=== PATIENT | male | born 1980 | race Hispanic/Latino ===

== ENCOUNTER 2018-10-19 14:56 | Emergency (ER) | payer SELFPAY ==
--- NOTE | 2018-10-19 15:11 | Emergency Department Report ---
Blank Doc - Documentation Documentation: 38 y o male presents to ED cc of bilateral flank pain x couple of days and wo rsen this morning when he woke up denies dysuria, trauma, n/v/f UA ACC eval
[2018-10-19 15:40] LABS: Bilirubin,Urine NEG (Negative); Blood,Urine NEG (Negative); Color,Urine Yellow (Yellow); Mucus,Urine FEW /HPF; Protein,Urine <15 mg/dL mg/dL (Negative); Urobilinogen,Urine < 2.0 mg/dL (<2.0); WBC,Urine < 1.0 /HPF (0.0-6.0)
[2018-10-19 16:06] VITALS: BP 132/85
--- NOTE | 2018-10-19 16:06 | Emergency Department Report ---
ED Back Pain/Injury HPI - General Chief Complaint: Back Pain/Injury Stated Complaint: KIDNEY PAIN Time Seen by Provider: 10/19/18 15:08 Source: patient Limitations: No Limitations - History of Present Illness Initial Comments: This is a 38-year-old female who presents to the emergency room with bilateral flank pain for 4-5 days. Past medical history of kidney stones. Patient reports sharp intermittent pain to bilateral flanks that is non- radiating. He is currently taken Tylenol with minimal improvement. Patient states he forced himself to go to work today and pain increased throughout the day. He denies nausea, vomiting, diarrhea, dysuria, penile discharge, testicular enlargement or pain. MD Complaint: back pain Onset/Timin -: days(s) Similar Symptoms Previously: Yes (kidney stones) Place: home Radiation: none Severity: moderate Severity scale (0 -10): 8 Quality: sharp Consistency: intermittent Improves With: none Worsens With: supine Context: unknown Associated Symptoms: denies: numbness, difficulty urinating, incontinence, fever/chills Treatments Prior to Arrival: NSAIDS - Related Data Previous Rx's Medication Instructions Recorded Last Taken Type Ciprofloxacin HCl [Ciprofloxacin 500 mg PO Q12HR 10 Days #20 tab 10/19/18 Unknown Rx TAB] Lactobacillus Acidophilus 1 each PO DAILY #30 capsule 10/19/18 Unknown Rx [Acidophilus Lactobacilli] metroNIDAZOLE [Flagyl TAB] 500 mg PO Q8HR 10 Days #30 tablet 10/19/18 Unknown Rx Allergies Allergy/AdvReac Type Severity Reaction Status Date / Time No Known Allergies Allergy Unverified 10/19/18 15:02 ED Review of Systems ROS: Stated complaint: KIDNEY PAIN Other details as noted in HPI Constitutional: denies: chills, fever Respiratory: denies: cough, shortness of breath, wheezing Cardiovascular: denies: chest pain, palpitations Gastrointestinal: denies: abdominal pain, nausea, diarrhea Genitourinary: denies: urgency, dysuria Musculoskeletal: back pain (bilateral flank pain). denies: joint swelling, arthralgia Skin: denies: rash, lesions Neurological: denies: headache, weakness, paresthesias Psychiatric: denies: anxiety, depression ED Past Medical Hx - Social History Smoking Status: Current Every Day Smoker Substance Use Type: Alcohol, Marijuana - Medications Home Medications: Home Medications Medication Instructions Recorded Confirmed Last Taken Type Ciprofloxacin HCl [Ciprofloxacin 500 mg PO Q12HR 10 Days #20 tab 10/19/18 Unknown Rx TAB] Lactobacillus Acidophilus 1 each PO DAILY #30 capsule 10/19/18 Unknown Rx [Acidophilus Lactobacilli] metroNIDAZOLE [Flagyl TAB] 500 mg PO Q8HR 10 Days #30 tablet 10/19/18 Unknown Rx ED Physical Exam - General Limitations: No Limitations General appearance: alert, in no apparent distress, obese (morbidly) - Respiratory Respiratory exam: Present: normal lung sounds bilaterally. Absent: respiratory distress - Cardiovascular Cardiovascular Exam: Present: regular rate, normal rhythm. Absent: systolic murmur, diastolic murmur, rubs, gallop - GI/Abdominal GI/Abdominal exam: Present: soft, normal bowel sounds, other (obese abdomen). Absent: distended, tenderness, guarding, rebound, rigid - Back Exam Back exam: Present: normal inspection, full ROM. Absent: CVA tenderness (R), C VA tenderness (L) - Neurological Exam Neurological exam: Present: alert, oriented X3 - Psychiatric Psychiatric exam: Present: normal affect, normal mood - Skin Skin exam: Present: warm, dry, intact, normal color. Absent: rash ED Course Vital Signs 10/19/18 10/19/18 15:09 16:05 Temperature 98.2 F 98.8 F Pulse Rate 86 83 Respiratory 18 17 Rate Blood Pressure 141/87 Blood Pressure 132/85 [Left] O2 Sat by Pulse 100 98 Oximetry ED Medical Decision Making - Lab Data Result diagrams: 10/19/18 16:10 10/19/18 16:10 Lab Results 10/19/18 10/19/18 10/19/18 Range/Units 15:19 16:10 16:10 WBC 5.4 (4.5-11.0) K/mm3 RBC 4.79 (3.65-5.03) M/mm3 Hgb 13.3 (11.8-15.2) gm/dl Hct 40.2 (35.5-45.6) % MCV 84 (84-94) fl MCH 28 (28-32) pg MCHC 33 (32-34) % RDW 13.4 (13.2-15.2) % Plt Count 209 (140-440) K/mm3 Carbon Dioxide 26 (22-30) mmol/L BUN 14 (9-20) mg/dL Creatinine 0.8 (0.8-1.5) mg/dL Estimated GFR > 60 ml/min BUN/Creatinine Ratio 18 % Glucose 97 (75-100) mg/dL Calcium 8.6 (8.4-10.2) mg/dL Total Bilirubin 0.30 (0.1-1.2) mg/dL AST 29 (5-40) units/L ALT 26 (7-56) units/L Alkaline Phosphatase 91 (35-129) units/L Total Protein 7.9 (6.3-8.2) g/dL Albumin 4.4 (3.9-5) g/dL Albumin/Globulin Ratio 1.3 % Urine Color Yellow (Yellow) Urine Turbidity Clear (Clear) Urine pH 5.0 (5.0-7.0) Ur Specific Collins 1.025 (1.003-1.030) Urine Protein <15 mg/dl (Negative) mg/dL Urine Glucose (UA) Neg (Negative) mg/dL Urine Ketones Neg (Negative) mg/dL Urine Blood Neg (Negative) Urine Nitrite Neg (Negative) Urine Bilirubin Neg (Negative) Urine Urobilinogen < 2.0 (<2.0) mg/dL Ur Leukocyte Esterase Neg (Negative) Urine WBC (Auto) < 1.0 (0.0-6.0) /HPF Urine RBC (Auto) 1.0 (0.0-6.0) /HPF Urine Mucus Few /HPF - Radiology Data Radiology results: report reviewed PROCEDURE: CT ABDOMEN PELVIS WO CON TECHNIQUE: Computerized axial tomography of the abdomen and pelvis was performed without intravenous contrast. This study is performed without intravascular contrast material and its sensitivity for abdominal and pelvic pathology, including neoplasms, inflammation, abscess, free fluid, thrombosis, arterial dissection and infarction, is reduced compared with a contrast enhanced study. CT DOSE LENGTH PRODUCT: 1832.6 mGycm HISTORY: jessica flank pain, r/o kidney stones COMPARISONS: None . FINDINGS: Visualized lower thorax: No significant abnormality. Liver: Normal size and attenuation. Spleen: Normal size and attenuation. Gallbladder and biliary system: Normal. Pancreas: Normal. Adrenals: Normal. Kidneys: Normal. No evidence for renal calculi or hydronephrosis is seen. GI tract: Diverticuli are scattered throughout the colon. However, there is an inflammatory process and wall thickening in the area of descending colon within an area of diverticular disease. Findings are consistent with acute diverticulitis. No evidence for phlegmon or abscess formation is seen. No localized perforation is noted. Appendix is normal Lymph nodes and mesentery: Normal. Vasculature: Normal.. Bladder: Normal. Reproductive organs: Normal. Peritoneum: No free fluid. Musculoskeletal structures: Bilateral neural foraminal narrowing is present throughout the lumbar spine. Bilateral facet joint degenerative changes from L3 through S1 is noted. Anterior bridging osteophytes in the upper SI joints is noted. Other: None. IMPRESSION: 1. Acute diverticulitis of the descending colon without evidence for localized perforation or phlegmon formation 2. Scattered diverticuli noted elsewhere in the colon 3. Spurring throughout the spine and anterior SI joints - Medical Decision Making Patient was examined by me. Vitals are normal and patient is in no acute distress. Obtained labs and CT of abdomen and pelvis. 1. Acute diverticulitis of the descending colon without evidence for localized perforation or phlegmon formation. 2. Scattered diverticuli noted elsewhere in the colon. 3. Spurring throughout the spine and anterior SI joints. All labs are unremarkable. Some labs were pending and scanned to chart. Patient instructed to stop taking n itrofurantoin. Start cipro, flagyl, and zofran. Plan discussed with patient to discharge home and treat outpatient. He agrees with ER plan. Patient discharged home in stable condition. Follow up with PCP in 2-3 days. Critical care attestation.: If time is entered above; I have spent that time in minutes in the direct care of this critically ill patient, excluding procedure time. ED Disposition Clinical Impression: Nausea, vomiting and diarrhea, Diverticulitis Abdominal pain Qualifiers: Abdominal location: left lower quadrant Qualified Code(s): R10.32 - Left lower quadrant pain Disposition: - TO HOME OR SELFCARE Is pt being admited?: No Does the pt Need Aspirin: No Condition: Stable Instructions: Acute Nausea and Vomiting (ED), Abdominal Pain (ED), Diverticulitis (ED), Diverticulitis Diet (ED) Additional Instructions: Complete full course of antibiotics as prescribed. Follow-up with the primary care doctor from the referral below. Return to the emergency room if bloody stools, increased pain or worsening symptoms. Prescriptions: Lactobacillus Acidophilus [Acidophilus Lactobacilli] 1 each PO DAILY #30 capsule Ciprofloxacin HCl [Ciprofloxacin TAB] 500 mg PO Q12HR 10 Days #20 tab metroNIDAZOLE [Flagyl TAB] 500 mg PO Q8HR 10 Days #30 tablet Referrals: RAFI LEVY MD [Primary Care Provider] - 3-5 Days [facility] [Outside] - 3-5 Days [facility] [Outside] - 3-5 Days [facility] [Provider Group] - 3-5 Days Forms: Work/School Release Form(ED) Time of Disposition: 18:29
[2018-10-19 16:25] LABS: Hematocrit 40.2 % (35.5-45.6); Hemoglobin 13.3 gm/dl (11.8-15.2); Mean Corpuscular HGB Conc 33 % (32-34); Mean Corpuscular Volume 84 fl (84-94); Platelet Count 209 K/mm3 (140-440); Red Blood Count 4.79 M/mm3 (3.65-5.03); Red Cell Distribution Width 13.4 % (13.2-15.2)
[2018-10-19 16:50] LABS: Alanine Aminotransferase 26 units/L (7-56); Albumin 4.4 g/dL (3.9-5); BUN/Creatinine Ratio 18; Blood Urea Nitrogen 14 mg/dL (9-20); Calcium 8.6 mg/dL (8.4-10.2); Hemolysis Index 5
--- NOTE | 2018-10-19 17:32 | Cat Scan Report ---
PROCEDURE: CT ABDOMEN PELVIS WO CON TECHNIQUE: Computerized axial tomography of the abdomen and pelvis was performed without intravenous contrast. This study is performed without intravascular contrast material and its sensitivity for ab dominal and pelvic pathology, including neoplasms, inflammation, abscess, free fluid, thrombosis, art erial dissection and infarction, is reduced compared with a contrast enhanced study. CT DOSE LENGTH PRODUCT: 1832.6 mGycm HISTORY: jessica flank pain, r/o kidney stones COMPARISONS: None . FINDINGS: Visualized lower thorax: No significant abnormality. Liver: Normal size and attenuation. Spleen: Normal size and attenuation. Gallbladder and biliary system: Normal. Pancreas: Normal. Adrenals: Normal. Kidneys: Normal. No evidence for renal calculi or hydronephrosis is seen. GI tract: Diverticuli are scattered throughout the colon. However, there is an inflammatory process and wall thickening in the area of descending colon within an area of diverticular disease. Findings are consistent with acute diverticulitis. No evidence for phlegmon or abscess formation is seen. No l ocalized perforation is noted. Appendix is normal Lymph nodes and mesentery: Normal. Vasculature: Normal.. Bladder: Normal. Reproductive organs: Normal. Peritoneum: No free fluid. Musculoskeletal structures: Bilateral neural foraminal narrowing is present throughout the lumbar spi ne. Bilateral facet joint degenerative changes from L3 through S1 is noted. Anterior bridging osteoph ytes in the upper SI joints is noted. Other: None. IMPRESSION: 1. Acute diverticulitis of the descending colon without evidence for localized perforation or phlegmo n formation 2. Scattered diverticuli noted elsewhere in the colon 3. Spurring throughout the spine and anterior SI joints This document is electronically signed by Susy Somers MD., October 19 2018 05:31:02 PM ET
== END 2018-10-19 18:39 | disposition home or self-care (01) ==
LOC: ED 14:56
DX: K57.92 Diverticulitis of intestine, part unspecified, without perforation or abscess without bleeding (principal); F17.200 Nicotine dependence, unspecified, uncomplicated; F12.10 Cannabis abuse, uncomplicated
CPT/HCPCS: 36415; 74176; 80053; 81001; 85027

== ENCOUNTER 2021-05-28 06:00 | Inpatient (IN) | payer SELFPAY ==
[2021-05-28] MEDS ORDERED: SODIUM CHLORIDE 0.9% 1000 ML 1,000 ML IV ONE ×2 (08:29→13:00)
[2021-05-28] MEDS ORDERED: METOCLOPRAMIDE 10 MG/2 ML INJ IV ONE (08:30)
[2021-05-28] MEDS ORDERED: KETOROLAC 30 MG/1 ML INJ IV ONE (08:30)
--- NOTE | 2021-05-28 08:30 | Emergency Department Report ---
ED Abdominal Pain HPI - General Chief Complaint: Abdominal Pain Stated Complaint: Abd pain Time Seen by Provider: 05/28/21 08:21 Source: patient Mode of arrival: Ambulatory Limitations: No Limitations - History of Present Illness Initial Comments: 41-year-old -Citizen Of [place] male presents to the ER today with complaints of abdominal pain, abdominal bloating and constipation. Patient states that symptoms started 2 days ago. Patient was seen here on May 10, he was diagnosed with acute diverticulitis, and and his CT abdomen pelvis also showed possible small bowel obstruction, but this was felt to be more related to an ileus. Patient was discharged in stable condition with Levaquin and Flagyl. Patient states that his pain did improve for a few days after being discharged, but 2 days ago it flared back up or so in the left lower quadrant, and he states that he noticed that he has been more bloated and constipated and has not had a bowel movement in 2 days. He states that he took a laxative last night x1 without any resolution. He states that he completed a course of Flagyl but still taking the Levaquin. He was also prescribed Zofran but he does not feel like it is helping as he had vomited twice in the past 2 days. He also is on Percocet for pain which he states that he stopped taking 2 days ago. Patient states that he did start passing gas this morning. He denies any UTI symptoms. He denies any fever or chills. Patient denies similar symptoms in the past. MD Complaint: abdominal pain, other (Abdominal bloating) -: Gradual, days(s) (2) Severity scale (0 -10): 5 - Related Data Previous Rx's Medication Instructions Recorded Last Taken Type Ondansetron [Zofran Odt] 4 mg PO Q8HR PRN #20 tab.rapdis 05/10/21 Unknown Rx levoFLOXacin [Levaquin TAB] 500 mg PO QDAY 10 Days #20 tablet 05/10/21 Unknown Rx metroNIDAZOLE [Flagyl TAB] 500 mg PO Q12HR 10 Days #20 tab 05/10/21 Unknown Rx oxyCODONE /ACETAMINOPHEN [Percocet 1 tab PO Q6HR PRN #15 tablet 05/10/21 Unknown Rx 5/325] Allergies Allergy/AdvReac Type Severity Reaction Status Date / Time No Known Allergies Allergy Unverified 06/08/19 15:02 ED Review of Systems ROS: Stated complaint: Abd pain Other details as noted in HPI Comment: All other systems reviewed and negative Constitutional: denies: chills, fever Respiratory: denies: cough, shortness of breath, wheezing Cardiovascular: denies: chest pain, palpitations, dyspnea on exertion, edema, syncope, paroxysmal nocturnal dyspnea ED Past Medical Hx - Past Medical History Previous Medical History?: Yes Hx Kidney Stones: Yes - Surgical History Past Surgical History?: No - Social History Smoking Status: Current Every Day Smoker Substance Use Type: Alcohol, Marijuana - Medications Home Medications: Home Medications Medication Instructions Recorded Confirmed Last Taken Type Ondansetron [Zofran Odt] 4 mg PO Q8HR PRN #20 tab.rapdis 05/10/21 Unknown Rx levoFLOXacin [Levaquin TAB] 500 mg PO QDAY 10 Days #20 tablet 05/10/21 Unknown Rx metroNIDAZOLE [Flagyl TAB] 500 mg PO Q12HR 10 Days #20 tab 05/10/21 Unknown Rx oxyCODONE /ACETAMINOPHEN [Percocet 1 tab PO Q6HR PRN #15 tablet 05/10/21 Unknown Rx 5/325] ED Physical Exam - General Limitations: No Limitations General appearance: alert, in no apparent distress, obese - Head Head exam: Present: atraumatic, normocephalic, normal inspection - Eye Eye exam: Present: normal appearance, PERRL, EOMI Pupils: Present: normal accommodation - Neck Neck exam: Present: normal inspection, full ROM. Absent: meningismus - Respiratory Respiratory exam: Present: normal lung sounds bilaterally. Absent: respiratory distress, wheezes, rales, rhonchi - Cardiovascular Cardiovascular Exam: Present: regular rate, normal rhythm, normal heart sounds - GI/Abdominal GI/Abdominal exam: Present: distended (moderate), tenderness (Mainly LLQ), diminished bowel sounds, hypoactive bowel sounds. Absent: rebound, rigid - Neurological Exam Neurological exam: Present: alert, oriented X3, CN II-XII intact, normal gait - Psychiatric Psychiatric exam: Present: normal affect, normal mood - Skin Skin exam: Present: intact ED Course Vital Signs 05/28/21 05/28/21 05/28/21 06:31 08:57 13:10 Temperature 98.3 F Pulse Rate 90 Respiratory 16 20 Rate Blood Pressure 141/91 [Right] O2 Sat by Pulse 98 97 Oximetry ED Medical Decision Making - Lab Data Result diagrams: 05/28/21 09:03 05/28/21 09:03 - Radiology Data Radiology results: report reviewed Patient: AYANA MCGEE MR#: [id number] 200 : 1980 Acct:[id number] Age/Sex: 41 / M ADM Date: 05/28/21 Loc: ED Attending Dr: Ordering Physician: SAMIA WELLER Date of Service: 05/28/21 Procedure(s): CT abdomen pelvis w con Accession Number(s): [id number] cc: SAMIA WELLER CT abdomen pelvis w con INDICATION / CLINICAL INFORMATION: worsening abd pain/bloating. TECHNIQUE: Axial CT images were obtained through the abdomen and pelvis after 100 cc of Omnipaque [address] scans at this location are performed using CT dose reduction for ALARA by means of automated exposure control. COMPARISON: CT dated 05/10/2021 FINDINGS: LOWER CHEST: No significant abnormality LIVER: No significant abnormality GALLBLADDER/BILIARY TREE: Gallbladder is mildly distended without evidence of cholecystitis. PANCREAS: No significant abnormality SPLEEN: No significant abnormality ADRENALS: No significant abnormality KIDNEYS / URETER: No significant abnormality URINARY BLADDER: Bladder is decompressed, limiting further evaluation. REPRODUCTIVE ORGANS: No significant abnormality STOMACH / BOWEL: Prominent mural thickening and inflammatory stranding involving the distal descending colon with more mild mural thickening of the colon extending proximally to the splenic flexure. Findings appear progressed from 05/10/2021 CT. There is a large amount of stool within the colon with additional small bowel feces. The small bowel is diffusely dilated without significant mural thickening or surrounding inflammatory stranding, likely related to chronic constipation/ileus. LYMPH NODES: No significant adenopathy. VASCULATURE: No significant abnormality. OTHER: No free air, free fluid, or focal fluid collection is identified. SKELETAL SYSTEM: No acute osseous findings. IMPRESSION: 1. Prominent mural thickening and inflammatory stranding involving the distal descending colon, progressed from prior study from 05/10/2021. Findings most likely reflect a focal infectious or inflammatory colitis. 2. Large amount of stool within the proximal colon and small bowel. The small bowel is diffusely dilated without abrupt transition or significant mural thickening/inflammation. These findings most likely represent adynamic ileus related to chronic constipation. 3. Other stable chronic and incidental findings as above. Signer Name: Butch Fortune MD Signed: 05/28/2021 11:58 AM Workstation Name: [id number] Transcribed By: DANAE Dictated By: BUTCH FROTUNE MD Electronically Authenticated By: BUTCH FORTUNE MD Signed Date/Time: 05/28/21 1158 DD/ 1151 TD/TT: - Medical Decision Making 1217: LABS REVIEWED --CBC and CMP including lipase reviewed and does not show any significant abnormalities. Urinalysis negative for UTI. CT abdomen pelvis report reviewed - Prominent mural thickening and inflammatory stranding involving the distal descending colon, progressed from prior study from 05/10/2021. Findings most likely reflect a focal infectious or inflammatory colitis. 2. Large amount of stool within the proximal colon and small bowel. The small bowel is diffusely dilated without abrupt transition or significant mural thickening/inflammation. These findings most likely represent adynamic ileus related to chronic constipatioN Discussed case with Dr Cameron who also reviewed patient results and CT, recommend admission given there is progression of infection. He recommends consulting GI and then the hospitalist. 1249: Discussed case with Dr Edwards, GI specialist control integration engineer -- He reviewed patient's CT scans, and reported that patient small bowel significantly distende d recommend surgical consult and the NG tube bowel rest and IV fluids and no narcotics. He states there is concern that patient more has a colon mass and an infectious process but recommend starting patient on IV Zosyn in the meantime. 1309: Discussed case with Dr Mcgowan, surgeon on-call, she agrees with plan of action for GI specialist recommendation. 1317 : Discussed case with Dr Regan for admission. Patient currently resting comfortably in the recliner. He has not vomited during stay. He is a significant distress. Discussed all results with patient. Discussed plan of admission and reason for admission with patient. Patient expressed understanding and agreed plan. Patient currently stable. Critical care attestation.: If time is entered above; I have spent that time in minutes in the direct care of this critically ill patient, excluding procedure time. ED Disposition Clinical Impression: Acute abdominal pain, Colitis, Nausea and vomiting Disposition: ADMITTED INPATIENT Is pt being admited?: Yes Condition: Stable Referrals: PRIMARY CARE, [Primary Care Provider] - 3-5 Days
[2021-05-28 09:47] LABS: Basophils % (Auto) 0.1 % (0.0-1.8); Eosinophils % (Auto) 0.2 % (0.0-4.3); Hematocrit 40.5 % (35.5-45.6); Hemoglobin 12.8 gm/dl (11.8-15.2); Lymphocytes # (Auto) 1.6 K/mm3 (1.2-5.4); Lymphocytes % (Auto) 29.2 % (13.4-35.0); Mean Corpuscular HGB Conc 32 % (32-34); Mean Corpuscular Volume 85 fl (84-94); Monocytes # (Auto) 0.5 K/mm3 (0.0-0.8); Monocytes % (Auto) 9.4 % (0.0-7.3); Platelet Count 327 K/mm3 (140-440); Red Cell Distribution Width 13.9 % (13.2-15.2)
[2021-05-28 10:10] LABS: Alanine Aminotransferase 8 units/L (7-56); Albumin 4.4 g/dL (3.9-5); Bilirubin,Direct 0.2 mg/dL (0-0.2); Blood Urea Nitrogen 11 mg/dL (9-20); Calcium 9.1 mg/dL (8.4-10.2); Hemolysis Index 6
[2021-05-28 10:11] LABS: BUN/Creatinine Ratio 18
[2021-05-28 11:52] LABS: Bilirubin,Urine SM (Negative); Blood,Urine NEG (Negative); Calcium Oxalate Crystals,Urine 1+; Color,Urine Amber (Yellow); Mucus,Urine 2+ /HPF
[2021-05-28 11:55] LABS: Ictotest,Urine Negative (Negative)
--- NOTE | 2021-05-28 12:03 | Cat Scan Report ---
CT abdomen pelvis w con INDICATION / CLINICAL INFORMATION: worsening abd pain/bloating. TECHNIQUE: Axial CT images were obtained through the abdomen and pelvis after 100 cc of Omnipaque [address] scans at this location are performed using CT dose reduction for ALARA by means of automated exposure control. COMPARISON: CT dated 05/10/2021 FINDINGS: LOWER CHEST: No significant abnormality LIVER: No significant abnormality GALLBLADDER/BILIARY TREE: Gallbladder is mildly distended without evidence of cholecystitis. PANCREAS: No significant abnormality SPLEEN: No significant abnormality ADRENALS: No significant abnormality KIDNEYS / URETER: No significant abnormality URINARY BLADDER: Bladder is decompressed, limiting further evaluation. REPRODUCTIVE ORGANS: No significant abnormality STOMACH / BOWEL: Prominent mural thickening and inflammatory stranding involving the distal descendin g colon with more mild mural thickening of the colon extending proximally to the splenic flexure. Fin dings appear progressed from 05/10/2021 CT. There is a large amount of stool within the colon with ad ditional small bowel feces. The small bowel is diffusely dilated without significant mural thickening or surrounding inflammatory stranding, likely related to chronic constipation/ileus. LYMPH NODES: No significant adenopathy. VASCULATURE: No significant abnormality. OTHER: No free air, free fluid, or focal fluid collection is identified. SKELETAL SYSTEM: No acute osseous findings. IMPRESSION: 1. Prominent mural thickening and inflammatory stranding involving the distal descending colon, progr essed from prior study from 05/10/2021. Findings most likely reflect a focal infectious or inflammato ry colitis. 2. Large amount of stool within the proximal colon and small bowel. The small bowel is diffusely dila kumar without abrupt transition or significant mural thickening/inflammation. These findings most likel y represent adynamic ileus related to chronic constipation. 3. Other stable chronic and incidental findings as above. Signer Name: Max Fortune MD Signed: 05/28/2021 11:58 AM Workstation Name: [id number]
[2021-05-28] MEDS ORDERED: PIPERACILLIN/TAZOBACTAM 3.375 3.375 GM/50 ML BAG IV ONE (13:00)
[2021-05-28] MEDS ORDERED: ALBUTEROL 2.5 MG/3 ML NEBU IH PRN (14:11)
[2021-05-28] MEDS ORDERED: ACETAMINOPHEN 325 MG TAB PO PRN (14:11)
[2021-05-28] MEDS ORDERED: oxyCODONE /ACETAMINOPHEN 5-325MG TAB PO PRN (14:11)
[2021-05-28] MEDS ORDERED: ONDANSETRON 4 MG/2 ML INJ IV PRN (14:11)
[2021-05-28] MEDS ORDERED: HYDROmorphone 1 MG/1 ML INJ IV PRN (14:11)
--- NOTE | 2021-05-28 14:59 | History and Physical Report ---
History of Present Illness Chief complaint: My stomach hurts and I feel bloated History of present illness: 41 YO Male with Obesity, Nicotine Dependence, Nephrolithiasis, LDD presents to ED for evaluation. Patient reports "my stomach hurts and I feel bloated". Patient states that he had experienced abdominal discomfort, constipation, and feeling bloated over the past 2 days with intermittent symptoms over the same timeframe. Patient acknowledges nausea, multiple episodes of vomiting. Patient states that he experienced the aforementioned symptoms 1 week ago and was seen and evaluated in the emergency department and discharged home with oral antibiotic therapy. Patient reports compliance with outpatient therapy with return of the aforementioned symptoms. Patient transported [facility] via private vehicle for further care and evaluation of the aforementioned symptoms. The patient was seen and evaluated in the emergency department. All lab and imaging studies reviewed. Patient underwent CT scan of the abdomen and pelvis which revealed evidence of colitis. Patient placed in observation status and admitted to medical floor due to increased risk of worsening symptoms. Surgical team consulted in ED. GI team consulted in ED. Patient denies fever, chills, chest pain, palpitation, cough, skin rash, recent ill contact, ingestion of food/water from new or different sources, or nondisplaced to COVID-19. No prior admission for review. No medication listed at time of admission for reconciliation. Adva nced care planning conducted in ED. Past History Past Medical History: other (See HPI) Past Surgical History: No surgical history, Other (Reviewed) Social history: single, smoking Family history: no significant family history, other (Reviewed) Medications and Allergies Allergies Allergy/AdvReac Type Severity Reaction Status Date / Time No Known Allergies Allergy Unverified 10/19/18 15:02 Home Medications Medication Instructions Recorded Confirmed Last Taken Type Ondansetron [Zofran Odt] 4 mg PO Q8HR PRN #20 tab.rapdis 05/10/21 Unknown Rx levoFLOXacin [Levaquin TAB] 500 mg PO QDAY 10 Days #20 tablet 05/10/21 Unknown Rx metroNIDAZOLE [Flagyl TAB] 500 mg PO Q12HR 10 Days #20 tab 05/10/21 Unknown Rx oxyCODONE /ACETAMINOPHEN [Percocet 1 tab PO Q6HR PRN #15 tablet 05/10/21 Unknown Rx 5/325] Active Meds: Active Medications Acetaminophen (Acetaminophen 325 Mg Tab) 650 mg PO Q4H PRN PRN Reason: Pain MILD(1-3)/Fever >100.5/SORIA Albuterol (Albuterol 2.5 Mg/3 Ml Nebu) 2.5 mg IH Q4HRT PRN PRN Reason: Shortness Of Breath Hydromorphone HCl (Hydromorphone 1 Mg/1 Ml Inj) 0.5 mg IV Q23H PRN PRN Reason: Pain , Severe (7-10) Sodium Chloride (Nacl 0.9% 1000 Ml) 1,000 mls @ 125 mls/hr IV ONCE ONE Stop: 05/28/21 20:59 Last Admin: 05/28/21 13:19 Dose: 125 mls/hr Sodium Chloride (Nacl 0.9% 1000 Ml) 1,000 mls @ 125 mls/hr IV DIRECT CHARY Ondansetron HCl (Ondansetron 4 Mg/2 Ml Inj) 4 mg IV Q8H PRN PRN Reason: Nausea And Vomiting Oxycodone/Acetaminophen (Oxycodone /Acetaminophen 5-325mg Tab) 1 tab PO Q16H PRN PRN Reason: Pain, Moderate (4-6) Sodium Chloride (Sodium Chloride 0.9% 10 Ml Flush Syringe) 10 ml IV BID CHARY Sodium Chloride (Sodium Chloride 0.9% 10 Ml Flush Syringe) 10 ml IV PRN PRN PRN Reason: LINE FLUSH Review of Systems Constitutional: no weight loss, no weight gain, no fever, no chills Ears, nose, mouth and throat: no ear pain, no nose pain, no nasal congestion, no sinus pressure Cardiovascular: no orthopnea, no palpitations, no syncope, no lightheadedness Respiratory: no cough, no cough with sputum, no hemoptysis, no shortness of breath Gastrointestinal: abdominal pain, constipation, no BRBPR, no melena, no hematochezia, no early satiety Genitourinary Male: no hematuria, no flank pain, no discharge, no urinary frequency, no urinary hesitancy Rectal: no pain, no incontinence, no bleeding Musculoskeletal: no neck stiffness, no neck pain, no low back pain Integumentary: no rash, no redness, no wounds Neurological: no head injury, no paralysis, no numbness, no seizures Psychiatric: no anxiety, no change in sleep habits, no insomnia, no hypersomnia, no suicidal ideation, no hallucinations Endocrine: no heat intolerance, no excessive thirst, no polyuria, no nocturia Hematologic/Lymphatic: no easy bleeding Allergic/Immunologic: no urticaria, no allergic rhinitis, no wheezing Exam - Constitutional Vitals: Temp Pulse Resp BP Pulse Ox 98.5 F 69 18 135/81 99 05/28/21 13:34 05/28/21 13:34 05/28/21 13:34 05/28/21 13:34 05/28/21 13:34 General appearance: Present: mild distress, obese - EENT Eyes: Present: PERRL ENT: hearing intact, clear oral mucosa - Neck Neck: Present: supple, normal ROM - Respiratory Respiratory effort: normal Respiratory: bilateral: CTA - Cardiovascular Heart Sounds: Present: S1 & S2. Absent: rub, click - Extremities Extremities: pulses symmetrical, No edema Peripheral Pulses: within normal limits - Abdominal General gastrointestinal: Present: soft, non-tender, non-distended, normal bowel sounds Male genitourinary: Present: normal - Integumentary Integumentary: Present: clear, warm, dry - Musculoskeletal Musculoskeletal: gait normal, strength equal bilaterally - Psychiatric Psychiatric: appropriate mood/affect, intact judgment & insight - Neurologic Neurologic: CNII-XII intact, moves all extremities Results - Labs CBC & Chem 7: 05/28/21 09:03 05/28/21 09:03 Labs: Abnormal lab results 05/28/21 05/28/21 05/28/21 Range/Units 09:03 09:03 11:04 MCH 27 L (28-32) pg [place] % (Auto) 9.4 H (0.0-7.3) % Sodium 134 L (137-145) mmol/L Chloride 95.3 L (98-107) mmol/L Creatinine 0.6 L (0.8-1.3) mg/dL Glucose 106 H (75-100) mg/dL Lipase 73 H (13-60) units/L Ur Specific [place] 1.034 H (1.003-1.030) Assessment and Plan - Patient Problems (1) Colitis Current Visit: Yes Status: Acute Plan to address problem: Empiric IV antibiotic therapy, supportive care, GI team consulted, continue medical management. (2) Acute abdominal pain Current Visit: Yes Status: Acute Plan to address problem: CT scan abdomen pelvis, serial abdominal exam, surgery team consulted, GI team consulted in ED. Further care and evaluation as per the aforementioned teams. (3) Obesity hypoventilation syndrome Current Visit: Yes Status: Acute (4) DVT prophylaxis Current Visit: Yes Status: Acute Plan to address problem: SCDs bilateral lower extremities while in bed, patient is ambulatory (5) Advance care planning Current Visit: Yes Status: Acute Plan to address problem: Disease education conducted, care plan discussed, suspected diagnoses discussed, patient is full code. Patient acknowledges understanding and agreement with care plan, +30 minutes. (6) Nicotine dependence Current Visit: Yes Status: Acute Qualifiers: Nicotine product type: cigarettes Substance use status: in withdrawal Qualified Code(s): F17.213 - Nicotine dependence, cigarettes, with withdrawal Plan to address problem: Smoke cessation counseling, supportive care, behavior change counseling, +15 minutes.
--- NOTE | 2021-05-28 16:24 | Consultation ---
History of Present Illness Consult date: 05/28/21 Reason for consult: abdominal pain Chief complaint: abdominal bloating, constipation - History of present illness History of present illness: 41 yo M with no PMHx who presented to ER with c/o abdominal bloating and constipation for 1 1/2 day. This time he also had n/v - clear emesis (NB/NB). His last BM was 1 1/2 day ago and normal. He usually has BM twice a day. His BMs have not changed in character and he denies hematochezia and melena. He is passing flatus regularly. He is afebrile. He feels well now after medications given in ER. Patient states the first episode was 3 weeks ago at which time he also came to ER. He was diagnosed with descending colon diverticulitis and started on levaquin and flagyl. He states he felt better after starting antibiotics for a few days. He has never had a colonscopy and no family hx of colon ca. Past History Past Medical History: No medical history Past Surgical History: No surgical history Social history: no significant social history Family history: diabetes Medications and Allergies Allergies Allergy/AdvReac Type Severity Reaction Status Date / Time No Known Allergies Allergy Unverified 10/19/18 15:02 Home Medications Medication Instructions Recorded Confirmed Last Taken Type Ondansetron [Zofran Odt] 4 mg PO Q8HR PRN #20 tab.rapdis 05/10/21 Unknown Rx levoFLOXacin [Levaquin TAB] 500 mg PO QDAY 10 Days #20 tablet 05/10/21 Unknown Rx metroNIDAZOLE [Flagyl TAB] 500 mg PO Q12HR 10 Days #20 tab 05/10/21 Unknown Rx oxyCODONE /ACETAMINOPHEN [Percocet 1 tab PO Q6HR PRN #15 tablet 05/10/21 Unknown Rx 5/325] Active Meds: Active Medications Acetaminophen (Acetaminophen 325 Mg Tab) 650 mg PO Q4H PRN PRN Reason: Pain MILD(1-3)/Fever >100.5/SORIA Albuterol (Albuterol 2.5 Mg/3 Ml Nebu) 2.5 mg IH Q4HRT PRN PRN Reason: Shortness Of Breath Hydromorphone HCl (Hydromorphone 1 Mg/1 Ml Inj) 0.5 mg IV Q23H PRN PRN Reason: Pain , Severe (7-10) Sodium Chloride (Nacl 0.9% 1000 Ml) 1,000 mls @ 125 mls/hr IV ONCE ONE Stop: 05/28/21 20:59 Last Admin: 05/28/21 13:19 Dose: 125 mls/hr Sodium Chloride (Nacl 0.9% 1000 Ml) 1,000 mls @ 125 mls/hr IV DIRECT CHARY Ondansetron HCl (Ondansetron 4 Mg/2 Ml Inj) 4 mg IV Q8H PRN PRN Reason: Nausea And Vomiting Oxycodone/Acetaminophen (Oxycodone /Acetaminophen 5-325mg Tab) 1 tab PO Q16H PRN PRN Reason: Pain, Moderate (4-6) Sodium Chloride (Sodium Chloride 0.9% 10 Ml Flush Syringe) 10 ml IV BID CHARY Sodium Chloride (Sodium Chloride 0.9% 10 Ml Flush Syringe) 10 ml IV PRN PRN PRN Reason: LINE FLUSH Review of Systems All systems: negative (10 pt ROS performed and negative except for that listed in HPI) Exam Vital Signs Temp Pulse Resp BP Pulse Ox 98.3 F 90 16 141/91 98 05/28/21 06:31 05/28/21 06:31 05/28/21 06:31 05/28/21 06:31 05/28/21 06:31 Narrative exam: Gen: AAOx3. NAD ENT: no icterus or conjunctival pallor CV: S1, S2+ resp: even and unlabored Abd: soft, distended, NT. no r/r/g Ext: no c/c/e Results - Labs 05/28/21 09:03 05/28/21 09:03 Abnormal lab results 05/28/21 05/28/21 05/28/21 Range/Units 09:03 09:03 11:04 MCH 27 L (28-32) pg [place] % (Auto) 9.4 H (0.0-7.3) % Sodium 134 L (137-145) mmol/L Chloride 95.3 L (98-107) mmol/L Creatinine 0.6 L (0.8-1.3) mg/dL Glucose 106 H (75-100) mg/dL Lipase 73 H (13-60) units/L Ur Specific [place] 1.034 H (1.003-1.030) Diabetes panel 05/28/21 Range/Units 09:03 Sodium 134 L (137-145) mmol/L Potassium 3.8 (3.6-5.0) mmol/L Chloride 95.3 L (98-107) mmol/L Carbon Dioxide 26 (22-30) mmol/L BUN 11 (9-20) mg/dL Creatinine 0.6 L (0.8-1.3) mg/dL Glucose 106 H (75-100) mg/dL Calcium 9.1 (8.4-10.2) mg/dL AST 10 (5-40) units/L ALT 8 (7-56) units/L Alkaline Phosphatase 52 (35-129) units/L Total Protein 6.9 (6.3-8.2) g/dL Albumin 4.4 (3.9-5) g/dL Calcium panel 05/28/21 Range/Units 09:03 Calcium 9.1 (8.4-10.2) mg/dL Albumin 4.4 (3.9-5) g/dL Pituitary panel 05/28/21 Range/Units 09:03 Sodium 134 L (137-145) mmol/L Potassium 3.8 (3.6-5.0) mmol/L Chloride 95.3 L (98-107) mmol/L Carbon Dioxide 26 (22-30) mmol/L BUN 11 (9-20) mg/dL Creatinine 0.6 L (0.8-1.3) mg/dL Glucose 106 H (75-100) mg/dL Calcium 9.1 (8.4-10.2) mg/dL Adrenal panel 05/28/21 Range/Units 09:03 Sodium 134 L (137-145) mmol/L Potassium 3.8 (3.6-5.0) mmol/L Chloride 95.3 L (98-107) mmol/L Carbon Dioxide 26 (22-30) mmol/L BUN 11 (9-20) mg/dL Creatinine 0.6 L (0.8-1.3) mg/dL Glucose 106 H (75-100) mg/dL Calcium 9.1 (8.4-10.2) mg/dL Total Bilirubin 0.60 (0.1-1.2) mg/dL AST 10 (5-40) units/L ALT 8 (7-56) units/L Alkaline Phosphatase 52 (35-129) units/L Total Protein 6.9 (6.3-8.2) g/dL Albumin 4.4 (3.9-5) g/dL - Imaging CT scan - abdomen: report reviewed, image reviewed CT scan - pelvis: report reviewed, image reviewed Assessment and Plan 41 yo M with partial colonic obstruction 2/2 descending colon mass vs infection/inflammatory process Ct A/P reviewed from 05/28/21 and 05/09/21 - mural thickening of portion of descending colon with mild inflammatory stranding, no perforation. Distal colon with some air/stool but decompressed. Dilatation of proximal colon and diffuse small bowel distension. No free fluid or free air. Plan: 1. NPO 2. IVF 3. place NGT to [facility] 4. IV abx - zosyn 5. prn pain and nausea control 6. DVT ppx 7. GI consulted. May need flex sig/cscope 8. Abd xray in am Pt currently stable. Will follow. Thank you, please call with questions.
[2021-05-29] MEDS ORDERED: PANTOPRAZOLE 40 MG INJ IV ONE (02:51)
[2021-05-29] MEDS: SIMETHICONE 80 MG CHEW TAB PO PRN (02:57)
--- NOTE | 2021-05-29 04:22 | XRay Report ---
ABDOMEN 3 VIEW(S) INDICATION / CLINICAL INFORMATION: abd distension. COMPARISON: CT dated 05/28/21 FINDINGS: TUBES / LINES: None. BOWEL GAS PATTERN: Moderately dilated small bowel with numerous air-fluid levels as seen on prior CT. FREE AIR / EXTRALUMINAL GAS: None seen. ADDITIONAL FINDINGS: No significant additional findings. CHEST: Visualized chest shows no significant abnormality. IMPRESSION: 1. Moderately dilated small bowel likely related to inflammatory process in the descending colon. Signer Name: Nima He MD Signed: 05/29/2021 4:18 AM Workstation Name: [id number]
[2021-05-29 04:37] LABS: Basophils % (Auto) 0.5 % (0.0-1.8); Eosinophils % (Auto) 0.1 % (0.0-4.3); Hematocrit 40.9 % (35.5-45.6); Lymphocytes # (Auto) 1.2 K/mm3 (1.2-5.4); Lymphocytes % (Auto) 19.7 % (13.4-35.0); Mean Corpuscular HGB Conc 32 % (32-34); Mean Corpuscular Volume 84 fl (84-94); Monocytes # (Auto) 0.4 K/mm3 (0.0-0.8); Monocytes % (Auto) 6.9 % (0.0-7.3); Platelet Count 337 K/mm3 (140-440); Red Blood Count 4.87 M/mm3 (3.65-5.03); Red Cell Distribution Width 13.8 % (13.2-15.2)
[2021-05-29 04:59] LABS: Alanine Aminotransferase 7 units/L (7-56); Albumin 4.2 g/dL (3.9-5); Blood Urea Nitrogen 12 mg/dL (9-20); Calcium 8.9 mg/dL (8.4-10.2); Hemolysis Index 4
[2021-05-29 05:03] LABS: BUN/Creatinine Ratio 17
[2021-05-29] MEDS: KETOROLAC 30 MG/1 ML INJ IV SCH (09:28)
[2021-05-29] MEDS: PANTOPRAZOLE 40 MG INJ IV SCH (10:00)
--- NOTE | 2021-05-29 10:39 | Progress Note ---
Assessment and Plan Assessment and plan: #Colitis #Acute abdominal pain CT abdomen/pelvis with contrast revealing likely infectious versus inflammatory colitis Previous admission for acute diverticulitis of descending colon. Patient at that point was discharged with Flagyl and Levaquin with mild improvement upon d ischarge. General surgery consulted; appreciate recs Patient will be NPO. NG tube placed with low intermittent wall suction. Continue Zosyn per general surgery recommendations. Continue as needed analgesics and nausea control. Gastroenterology consulted; pending recs. Continue to monitor #Obesity #Weight loss counseling #Exercise counseling - BMI 35.2 - Counseled patient on the importance of weight loss, incorporating exercise, and dietary changes (lean meats, fresh fruits and vegetables, and water intake). Patient expresses understanding. - Time: +15 min #Tobacco dependence #Tobacco/Smoking cessation counseling - Counseled patient about the importance of smoking cessation and the possible sequelae as a result of continued tobacco consumption. The patient expresses understanding. -Time: +15 mins #Advanced care planning -Disease education conducted, care plan discussed, diagnoses discussed, prog nosis discussed, and patient acknowledges understanding with care plan -Time: +30 min Disposition Plan: Continue medical management Total Time Spent with Patient (Minutes): 45 minutes History Interval history: No acute events overnight. Hospitalist Physical - Constitutional Vitals: Temp Pulse Resp BP Pulse Ox 98.9 F 70 15 149/108 97 05/29/21 09:24 05/29/21 09:15 05/29/21 09:15 05/29/21 09:15 05/29/21 09:15 General appearance: Present: no acute distress, well-nourished, obese - EENT Eyes: Present: PERRL, EOM intact ENT: hearing intact, clear oral mucosa, dentition normal - Neck Neck: Present: supple, normal ROM - Respiratory Respiratory effort: normal Respiratory: bilateral: diminished - Cardiovascular Rhythm: regular Heart Sounds: Present: S1 & S2 - Extremities Extremities: no ischemia, pulses intact, pulses symmetrical, No edema, normal temperature, normal color, Full ROM Peripheral Pulses: within normal limits - Abdominal General gastrointestinal: soft, tender, normal bowel sounds Localized gastrointestinal: tender: epigastric periumbilical, midline - Integumentary Integumentary: Present: clear, warm, dry - Psychiatric Psychiatric: appropriate mood/affect, intact judgment & insight, memory intact, cooperative - Neurologic Neurologic: CNII-XII intact, moves all extremities - Allied Health Allied health notes reviewed: nursing Results - Labs CBC & Chem 7: 05/29/21 04:17 05/29/21 04:17 Labs: Laboratory Last Values WBC 6.3 K/mm3 (4.5-11.0) 05/29/21 04:17 RBC 4.87 M/mm3 (3.65-5.03) 05/29/21 04:17 Hgb 13.0 gm/dl (11.8-15.2) 05/29/21 04:17 Hct 40.9 % (35.5-45.6) 05/29/21 04:17 MCV 84 fl (84-94) 05/29/21 04:17 MCH 27 pg (28-32) L 05/29/21 04:17 MCHC 32 % (32-34) 05/29/21 04:17 RDW 13.8 % (13.2-15.2) 05/29/21 04:17 Plt Count 337 K/mm3 (140-440) 05/29/21 04:17 Lymph % (Auto) 19.7 % (13.4-35.0) 05/29/21 04:17 Coffee % (Auto) 6.9 % (0.0-7.3) 05/29/21 04:17 Eos % (Auto) 0.1 % (0.0-4.3) 05/29/21 04:17 Baso % (Auto) 0.5 % (0.0-1.8) 05/29/21 04:17 Lymph # (Auto) 1.2 K/mm3 (1.2-5.4) 05/29/21 04:17 Coffee # (Auto) 0.4 K/mm3 (0.0-0.8) 05/29/21 04:17 Eos # (Auto) 0.0 K/mm3 (0.0-0.4) 05/29/21 04:17 Baso # (Auto) 0.0 K/mm3 (0.0-0.1) 05/29/21 04:17 Seg Neutrophils % 72.8 % (40.0-70.0) H 05/29/21 04:17 Seg Neutrophils # 4.6 K/mm3 (1.8-7.7) 05/29/21 04:17 Sodium 139 mmol/L (137-145) 05/29/21 04:17 Potassium 3.8 mmol/L (3.6-5.0) 05/29/21 04:17 Chloride 100.0 mmol/L (98-107) 05/29/21 04:17 Carbon Dioxide 25 mmol/L (22-30) 05/29/21 04:17 Anion Gap 18 mmol/L 05/29/21 04:17 BUN 12 mg/dL (9-20) 05/29/21 04:17 Creatinine 0.7 mg/dL (0.8-1.3) L 05/29/21 04:17 Estimated GFR > 60 ml/min 05/29/21 04:17 BUN/Creatinine Ratio 17 % 05/29/21 04:17 Glucose 117 mg/dL (75-100) H 05/29/21 04:17 Calcium 8.9 mg/dL (8.4-10.2) 05/29/21 04:17 Total Bilirubin 0.80 mg/dL (0.1-1.2) 05/29/21 04:17 Direct Bilirubin 0.2 mg/dL (0-0.2) 05/28/21 09:03 Indirect Bilirubin 0.4 mg/dL 05/28/21 09:03 AST 10 units/L (5-40) 05/29/21 04:17 ALT 7 units/L (7-56) 05/29/21 04:17 Alkaline Phosphatase 48 units/L (35-129) 05/29/21 04:17 Total Protein 7.2 g/dL (6.3-8.2) 05/29/21 04:17 Albumin 4.2 g/dL (3.9-5) 05/29/21 04:17 Albumin/Globulin Ratio 1.4 % 05/29/21 04:17 Lipase 73 units/L (13-60) H 05/28/21 09:03 Urine Color Jessie (Yellow) 05/28/21 11:04 Urine Turbidity Clear (Clear) 05/28/21 11:04 Urine pH 5.0 (5.0-7.0) 05/28/21 11:04 Ur Specific [place] 1.034 (1.003-1.030) H 05/28/21 11:04 Urine Protein 30 mg/dl mg/dL (Negative) 05/28/21 11:04 Urine Glucose (UA) Neg mg/dL (Negative) 05/28/21 11:04 Urine Ketones Tr mg/dL (Negative) 05/28/21 11:04 Urine Blood Neg (Negative) 05/28/21 11:04 Urine Nitrite Neg (Negative) 05/28/21 11:04 Urine Bilirubin Sm (Negative) 05/28/21 11:04 Urine Ictotest Negative (Negative) 05/28/21 11:04 Urine Urobilinogen 4.0 mg/dL (<2.0) 05/28/21 11:04 Ur Leukocyte Esterase Neg (Negative) 05/28/21 11:04 Urine WBC (Auto) 3.0 /HPF (0.0-6.0) 05/28/21 11:04 Urine RBC (Auto) 12.0 /HPF (0.0-6.0) 05/28/21 11:04 U Epithel Cells (Auto) < 1.0 /HPF (0-13.0) 05/28/21 11:04 Calcium Oxalate Crystal 1+ 05/28/21 11:04 Urine Mucus 2+ /HPF 05/28/21 11:04 Active Medications - Current Medications Current Medications: Generic Name Dose Route Start Last Admin Trade Name Freq PRN Reason Stop Dose Admin Acetaminophen 650 mg 05/28/21 14:11 Acetaminophen 325 Mg Tab PO Q4H PRN Pain MILD(1-3)/Fever >100.5/SORIA Albuterol 2.5 mg 05/28/21 14:11 Albuterol 2.5 Mg/3 Ml Nebu IH Q4HRT PRN Shortness Of Breath Hydromorphone HCl 0.5 mg 05/29/21 09:00 Hydromorphone 1 Mg/1 Ml Inj IV Q3H PRN Pain , Severe (7-10) Sodium Chloride 1,000 mls @ 125 mls/hr 05/28/21 14:15 Nacl 0.9% 1000 Ml IV DIRECT CHARY Piperacillin Sod/Tazobactam Sod 4.5 gm in 100 mls @ 200 mls/hr 05/29/21 11:00 Zosyn/Ns 4.5gm/100ml IV Q8H CHARY Protocol Ketorolac Tromethamine 15 mg 05/29/21 09:00 05/29/21 09:28 Ketorolac 30 Mg/1 Ml Inj IV 06/03/21 08:59 15 mg Q12H CHARY Administration Ondansetron HCl 4 mg 05/28/21 14:11 Ondansetron 4 Mg/2 Ml Inj IV Q8H PRN Nausea And Vomiting Oxycodone/Acetaminophen 1 tab 05/28/21 14:11 05/29/21 02:40 Oxycodone /Acetaminophen 5-325mg Tab PO 1 tab Q16H PRN Administration Pain, Moderate (4-6) Pantoprazole Sodium 40 mg 05/29/21 10:00 Pantoprazole 40 Mg Inj IV QDAY CHARY Simethicone 80 mg 05/29/21 02:44 05/29/21 02:57 Simethicone 80 Mg Chew Tab PO 80 mg Q6H PRN Administration Gas pain Sodium Chloride 10 ml 05/28/21 22:00 05/28/21 22:17 Sodium Chloride 0.9% 10 Ml Flush Syringe IV 10 ml BID CHARY Administration Sodium Chloride 10 ml 05/28/21 14:11 Sodium Chloride 0.9% 10 Ml Flush Syringe IV PRN PRN LINE FLUSH
[2021-05-29] MEDS: PIPERACIL/TAZOBACTA 4.5/NS 100 4.5 GM/100 ML VIAL IV SCH (11:23)
--- NOTE | 2021-05-29 13:09 | Gastroenterology Consultation ---
History of Present Illness - Reason for Consult Consult date: 05/29/[address] [facility] CT Requesting physician: HONORIO BATRES - History of Present Illness The patient is a 41 yo male with no past GI history. He was dx with diverticulitis 2 weeks ago, and felt better on abx. However, in the 3-4 days prior to admission he had recurrent N/V/LLQ abdominal pain. He was unable to pass stool, and felt very constipated. He had a CT in the ER that shows colonic obstruction in the sigmoid, with severe upstream dilation to the small bowel. He had an NG placed, and copious secretions removed. He now feels better and is passing gas, but not stool. He has had no fevers or chills. No prior GI surgery, colonoscopy or CT scans. He has no family hx of diverticulitis or col on CA. Past History Past Medical History: other (Obesity) Past Surgical History: No surgical history Social history: single, smoking Family history: no significant family history Medications and Allergies Allergies Allergy/AdvReac Type Severity Reaction Status Date / Time No Known Allergies Allergy Unverified 10/19/18 15:02 Home Medications Medication Instructions Recorded Confirmed Last Taken Type Ondansetron [Zofran Odt] 4 mg PO Q8HR PRN #20 tab.rapdis 05/10/21 Unknown Rx levoFLOXacin [Levaquin TAB] 500 mg PO QDAY 10 Days #20 tablet 05/10/21 Unknown Rx metroNIDAZOLE [Flagyl TAB] 500 mg PO Q12HR 10 Days #20 tab 05/10/21 Unknown Rx oxyCODONE /ACETAMINOPHEN [Percocet 1 tab PO Q6HR PRN #15 tablet 05/10/21 Unknown Rx 5/325] Active Meds: Active Medications Acetaminophen (Acetaminophen 325 Mg Tab) 650 mg PO Q4H PRN PRN Reason: Pain MILD(1-3)/Fever >100.5/SORIA Albuterol (Albuterol 2.5 Mg/3 Ml Nebu) 2.5 mg IH Q4HRT PRN PRN Reason: Shortness Of Breath Hydromorphone HCl (Hydromorphone 1 Mg/1 Ml Inj) 0.5 mg IV Q3H PRN PRN Reason: Pain , Severe (7-10) Sodium Chloride (Nacl 0.9% 1000 Ml) 1,000 mls @ 125 mls/hr IV DIRECT CHARY Piperacillin Sod/Tazobactam Sod (Zosyn/Ns 4.5gm/100ml) 4.5 gm in 100 mls @ 200 mls/hr IV Q8H [facility]; Protocol Last Admin: 05/29/21 11:23 Dose: 200 mls/hr Ketorolac Tromethamine (Ketorolac 30 Mg/1 Ml Inj) 15 mg IV Q12H [facility] Stop: 06/03/21 08:59 Last Admin: 05/29/21 09:28 Dose: 15 mg Ondansetron HCl (Ondansetron 4 Mg/2 Ml Inj) 4 mg IV Q8H PRN PRN Reason: Nausea And Vomiting Oxycodone/Acetaminophen (Oxycodone /Acetaminophen 5-325mg Tab) 1 tab PO Q16H PRN PRN Reason: Pain, Moderate (4-6) Last Admin: 05/29/21 02:40 Dose: 1 tab Pantoprazole Sodium (Pantoprazole 40 Mg Inj) 40 mg IV QDAY [facility] Last Admin: 05/29/21 10:00 Dose: 40 mg Simethicone (Simethicone 80 Mg Chew Tab) 80 mg PO Q6H PRN PRN Reason: Gas pain Last Admin: 05/29/21 02:57 Dose: 80 mg Sodium Chloride (Sodium Chloride 0.9% 10 Ml Flush Syringe) 10 ml IV BID CHARY Last Admin: 05/29/21 10:00 Dose: 10 ml Sodium Chloride (Sodium Chloride 0.9% 10 Ml Flush Syringe) 10 ml IV PRN PRN PRN Reason: LINE FLUSH I HAVE REVIEWED/RECONCILED MEDICATIONS Review of Systems - Review of Systems All systems: negative (as noted in the HPI) Exam - Constitutional Vital Signs: Temp Pulse Resp BP Pulse Ox 98.9 F 70 19 149/108 97 05/29/21 09:24 05/29/21 09:15 05/29/21 09:58 05/29/21 09:15 05/29/21 09:15 General appearance: no acute distress - EENT Eyes: PERRL, EOM intact ENT: hearing intact, clear oral mucosa, dentition normal, other (NG tube with greenish fluid) - Neck Neck: supple - Respiratory Respiratory effort: normal Respiratory: bilateral: CTA - Cardiovascular Rhythm: regular Heart Sounds: Present: S1 & S2 Extremities: no ischemia, No edema - Gastrointestinal General gastrointestinal: Present: soft, non-tender, distended, normal bowel sounds - Integumentary Integumentary: Present: clear, warm, dry - Neurologic Neurological: alert and oriented x3 - Psychiatric Psychiatric: appropriate mood/affect - Labs CBC & Chem 7: 05/29/21 04:17 05/29/21 04:17 Lab Results: Laboratory Results - last 24 hr 05/29/21 05/29/21 05/29/21 04:17 04:17 Unknown WBC 6.3 RBC 4.87 Hgb 13.0 Hct 40.9 MCV 84 MCH 27 L MCHC 32 RDW 13.8 Plt Count 337 Lymph % (Auto) 19.7 [place] % (Auto) 6.9 Eos % (Auto) 0.1 Baso % (Auto) 0.5 Lymph # (Auto) 1.2 [place] # (Auto) 0.4 Eos # (Auto) 0.0 Baso # (Auto) 0.0 Seg Neutrophils % 72.8 H Seg Neutrophils # 4.6 Sodium 139 Potassium 3.8 Chloride 100.0 Carbon Dioxide 25 Anion Gap 18 BUN 12 Creatinine 0.7 L Estimated GFR > 60 BUN/Creatinine Ratio 17 Glucose 117 H Calcium 8.9 Total Bilirubin 0.80 AST 10 ALT 7 Alkaline Phosphatase 48 Total Protein 7.2 Albumin 4.2 Albumin/Globulin Ratio 1.4 Coronavirus (PCR) Negative Assessment and Plan - Patient Problems (1) Colonic obstruction Current Visit: Yes Status: Acute Plan to address problem: - Unclear based on CT whether inflammatory or malignant obstruction, but initial CT a few weeks ago looked more like diverticulitis. - Agree with Surgery re:bowel rest, abx, IV fluids, NG suction - KUB today no significant improvement, but patient feels like he is about to soria ve a large BM; will re-order for the AM. - If obstruction (partially) resolves, will try and prep for colonoscopy to assess for mass lesion versus inflammation.
--- NOTE | 2021-05-29 13:12 | Progress Note ---
Assessment and Plan 41 yo M with partial colonic obstruction 2/2 descending colon mass vs infection/inflammatory process Ct A/P reviewed from 05/28/21 and 05/09/21 - mural thickening of portion of descending colon with mild inflammatory stranding, no perforation. Distal colon with some air/stool but decompressed. Dilatation of proximal colon and diffuse small bowel distension. No free fluid or free air. Obs series - mod dilatation of small bowel Plan: 1. NPO 2. IVF 3. NGT to LIWS 4. IV abx - zosyn 5. prn pain and nausea control 6. DVT ppx 7. GI consulted May need flex sig/cscope 8. Daily abd xray Pt remains stable. Will follow. Thank you, please call with questions. Subjective Date of service: 05/29/21 Narrative: Pt seen and examined. States he is feeling much better. He is having flatus. No n/v. NGT was placed this am. He feels like he needs to have a BM. No f/c. No abd pain. Objective Vital Signs - 12hr 05/29/21 05/29/21 05/29/21 01:15 01:31 01:45 Temperature Pulse Rate 62 70 63 Respiratory 19 15 13 Rate Blood Pressure 135/86 135/86 135/86 Blood Pressure [Right] O2 Sat by Pulse 95 96 96 Oximetry 05/29/21 05/29/21 05/29/21 01:57 02:01 02:15 Temperature Pulse Rate 61 75 68 Respiratory 17 15 22 Rate Blood Pressure 142/100 142/100 Blood Pressure 135/86 [Right] O2 Sat by Pulse 95 96 96 Oximetry 05/29/21 05/29/21 05/29/21 02:31 02:45 03:01 Temperature Pulse Rate 77 69 70 Respiratory 16 25 H 21 Rate Blood Pressure 142/100 142/100 137/89 Blood Pressure [Right] O2 Sat by Pulse 95 93 95 Oximetry 05/29/21 05/29/21 05/29/21 03:15 03:31 03:58 Temperature Pulse Rate 62 60 Respiratory 20 21 Rate Blood Pressure 137/89 137/89 137/89 Blood Pressure [Right] O2 Sat by Pulse 97 94 Oximetry 05/29/21 05/29/21 05/29/21 04:14 04:15 04:31 Temperature Pulse Rate 83 66 Respiratory 17 23 Rate Blood Pressure 137/89 137/89 137/89 Blood Pressure [Right] O2 Sat by Pulse 97 96 95 Oximetry 05/29/21 05/29/21 05/29/21 04:45 05:01 05:15 Temperature Pulse Rate 61 66 66 Respiratory 20 19 19 Rate Blood Pressure 137/89 125/63 125/63 Blood Pressure [Right] O2 Sat by Pulse 96 95 95 Oximetry 05/29/21 05/29/21 05/29/21 05:31 05:45 06:01 Temperature Pulse Rate 60 69 63 Respiratory 19 16 18 Rate Blood Pressure 125/63 125/63 135/79 Blood Pressure [Right] O2 Sat by Pulse 95 98 94 Oximetry 05/29/21 05/29/21 05/29/21 06:15 06:31 06:45 Temperature Pulse Rate 64 60 79 Respiratory 20 19 21 Rate Blood Pressure 135/79 135/79 135/79 Blood Pressure [Right] O2 Sat by Pulse 96 94 95 Oximetry 05/29/21 05/29/21 05/29/21 07:01 07:15 07:31 Temperature Pulse Rate 67 79 67 Respiratory 23 19 23 Rate Blood Pressure 122/66 122/66 122/66 Blood Pressure [Right] O2 Sat by Pulse 94 97 94 Oximetry 05/29/21 05/29/21 05/29/21 07:45 08:01 08:15 Temperature Pulse Rate 80 61 67 Respiratory 20 20 22 Rate Blood Pressure 122/66 155/98 155/98 Blood Pressure [Right] O2 Sat by Pulse 96 96 96 Oximetry 05/29/21 05/29/21 05/29/21 08:31 08:45 09:01 Temperature Pulse Rate 56 L 70 70 Respiratory 19 11 L 25 H Rate Blood Pressure 155/98 155/98 149/108 Blood Pressure [Right] O2 Sat by Pulse 96 96 95 Oximetry 05/29/21 05/29/21 05/29/21 09:15 09:24 09:58 Temperature 98.9 F Pulse Rate 70 Respiratory 15 19 Rate Blood Pressure 149/108 Blood Pressure [Right] O2 Sat by Pulse 97 Oximetry - General physical appearance Narrative Exam: Gen: AAOx3. NAD ENT: no icterus or conjunctival pallor. NGT in place with gastric fluid in canister and light bilious aspirate in tubing CV: S1, S2+ resp: even and unlabored Abd: soft, distended (unchanged), NT. no r/r/g Ext: no c/c/e - Labs 05/29/21 04:17 05/29/21 04:17 Diabetes panel 05/29/21 Range/Units 04:17 Sodium 139 (137-145) mmol/L Potassium 3.8 (3.6-5.0) mmol/L Chloride 100.0 (98-107) mmol/L Carbon Dioxide 25 (22-30) mmol/L BUN 12 (9-20) mg/dL Creatinine 0.7 L (0.8-1.3) mg/dL Glucose 117 H (75-100) mg/dL Calcium 8.9 (8.4-10.2) mg/dL AST 10 (5-40) units/L ALT 7 (7-56) units/L Alkaline Phosphatase 48 (35-129) units/L Total Protein 7.2 (6.3-8.2) g/dL Albumin 4.2 (3.9-5) g/dL Calcium panel 05/29/21 Range/Units 04:17 Calcium 8.9 (8.4-10.2) mg/dL Albumin 4.2 (3.9-5) g/dL Pituitary panel 05/29/21 Range/Units 04:17 Sodium 139 (137-145) mmol/L Potassium 3.8 (3.6-5.0) mmol/L Chloride 100.0 (98-107) mmol/L Carbon Dioxide 25 (22-30) mmol/L BUN 12 (9-20) mg/dL Creatinine 0.7 L (0.8-1.3) mg/dL Glucose 117 H (75-100) mg/dL Calcium 8.9 (8.4-10.2) mg/dL Adrenal panel 05/29/21 Range/Units 04:17 Sodium 139 (137-145) mmol/L Potassium 3.8 (3.6-5.0) mmol/L Chloride 100.0 (98-107) mmol/L Carbon Dioxide 25 (22-30) mmol/L BUN 12 (9-20) mg/dL Creatinine 0.7 L (0.8-1.3) mg/dL Glucose 117 H (75-100) mg/dL Calcium 8.9 (8.4-10.2) mg/dL Total Bilirubin 0.80 (0.1-1.2) mg/dL AST 10 (5-40) units/L ALT 7 (7-56) units/L Alkaline Phosphatase 48 (35-129) units/L Total Protein 7.2 (6.3-8.2) g/dL Albumin 4.2 (3.9-5) g/dL
[2021-05-29] MEDS: HYDROmorphone 1 MG/1 ML INJ IV PRN (14:39)
[2021-05-30] MEDS: KETOROLAC 30 MG/1 ML INJ IV SCH ×3 (00:08→22:14)
[2021-05-30] MEDS: HYDROmorphone 1 MG/1 ML INJ IV PRN (05:45)
[2021-05-30] MEDS: PIPERACIL/TAZOBACTA 4.5/NS 100 4.5 GM/100 ML VIAL IV SCH ×4 (05:46→22:14)
[2021-05-30 05:54] LABS: INR 0.93 (0.87-1.13)
--- NOTE | 2021-05-30 07:09 | Progress Note ---
Assessment and Plan Assessment and plan: #Colitis #Acute abdominal pain CT abdomen/pelvis with contrast revealing likely infectious versus inflammatory colitis Previous admission for acute diverticulitis of descending colon. Patient at that point was discharged with Flagyl and Levaquin with mild improvement upon d ischarge. General surgery consulted; appreciate recs Gastroenterology consulted; appreciate recs. Patient will be NPO. NG tube placed with low intermittent wall suction. Continue Zosyn per general surgery recommendations. GI might perform colonoscopy to evaluate for possible mass. General surgery discussed with patient need for possible surgical resection after colonoscopy. Patient expresses understanding. Continue as needed analgesics and nausea control. Continue to monitor #Elevated blood pressure Patient has not been diagnosed with hypertension. Elevated blood pressures might be in the setting of abdominal pain. Holding on initiating antihypertensives. Continue to monitor. #Obesity #Weight loss counseling #Exercise counseling - BMI 35.2 - Counseled patient on the importance of weight loss, incorporating exercise, and dietary changes (lean meats, fresh fruits and vegetables, and water intake). Patient expresses understanding. - Time: +15 min #Tobacco dependence #Tobacco/Smoking cessation counseling - Counseled patient about the importance of smoking cessation and the possible sequelae as a result of continued tobacco consumption. The patient expresses understanding. -Time: +15 mins #Advanced care planning -Disease education conducted, care plan discussed, diagnoses discussed, prognosis discussed, and patient acknowledges understanding with care plan -Time: +30 min Disposition Plan: Continue medical management Total Time Spent with Patient (Minutes): 45 minutes History Interval history: No acute events overnight. Hospitalist Physical - Constitutional Vitals: Temp Pulse Resp BP Pulse Ox 97.7 F 69 16 130/64 100 05/29/21 22:58 05/29/21 23:52 05/30/21 00:30 05/29/21 22:58 05/30/21 00:30 General appearance: Present: no acute distress, well-nourished, obese - EENT Eyes: Present: PERRL, EOM intact ENT: hearing intact, clear oral mucosa, dentition normal, other (NG tube in place) - Neck Neck: Present: supple, normal ROM - Respiratory Respiratory effort: normal Respiratory: bilateral: CTA - Cardiovascular Rhythm: regular Heart Sounds: Present: S1 & S2 - Extremities Extremities: no ischemia, pulses intact, pulses symmetrical Peripheral Pulses: within normal limits - Abdominal General gastrointestinal: soft, tender, distended (Mildly distended), normal bowel sounds Localized gastrointestinal: tender: epigastric periumbilical - Integumentary Integumentary: Present: clear, warm, dry - Psychiatric Psychiatric: appropriate mood/affect, intact judgment & insight, memory intact, cooperative - Neurologic Neurologic: CNII-XII intact, moves all extremities - Allied Health Allied health notes reviewed: nursing Results - Labs CBC & Chem 7: 05/29/21 04:17 05/29/21 04:17 Labs: Laboratory Last Values WBC 6.3 K/mm3 (4.5-11.0) 05/29/21 04:17 RBC 4.87 M/mm3 (3.65-5.03) 05/29/21 04:17 Hgb 13.0 gm/dl (11.8-15.2) 05/29/21 04:17 Hct 40.9 % (35.5-45.6) 05/29/21 04:17 MCV 84 fl (84-94) 05/29/21 04:17 MCH 27 pg (28-32) L 05/29/21 04:17 MCHC 32 % (32-34) 05/29/21 04:17 RDW 13.8 % (13.2-15.2) 05/29/21 04:17 Plt Count 337 K/mm3 (140-440) 05/29/21 04:17 Lymph % (Auto) 19.7 % (13.4-35.0) 05/29/21 04:17 [place] % (Auto) 6.9 % (0.0-7.3) 05/29/21 04:17 Eos % (Auto) 0.1 % (0.0-4.3) 05/29/21 04:17 Baso % (Auto) 0.5 % (0.0-1.8) 05/29/21 04:17 Lymph # (Auto) 1.2 K/mm3 (1.2-5.4) 05/29/21 04:17 [place] # (Auto) 0.4 K/mm3 (0.0-0.8) 05/29/21 04:17 Eos # (Auto) 0.0 K/mm3 (0.0-0.4) 05/29/21 04:17 Baso # (Auto) 0.0 K/mm3 (0.0-0.1) 05/29/21 04:17 Seg Neutrophils % 72.8 % (40.0-70.0) H 05/29/21 04:17 Seg Neutrophils # 4.6 K/mm3 (1.8-7.7) 05/29/21 04:17 PT 13.5 Sec. (12.2-14.9) 05/30/21 05:30 INR 0.93 (0.87-1.13) 05/30/21 05:30 Sodium 139 mmol/L (137-145) 05/29/21 04:17 Potassium 3.8 mmol/L (3.6-5.0) 05/29/21 04:17 Chloride 100.0 mmol/L (98-107) 05/29/21 04:17 Carbon Dioxide 25 mmol/L (22-30) 05/29/21 04:17 Anion Gap 18 mmol/L 05/29/21 04:17 BUN 12 mg/dL (9-20) 05/29/21 04:17 Creatinine 0.7 mg/dL (0.8-1.3) L 05/29/21 04:17 Estimated GFR > 60 ml/min 05/29/21 04:17 BUN/Creatinine Ratio 17 % 05/29/21 04:17 Glucose 117 mg/dL (75-100) H 05/29/21 04:17 Calcium 8.9 mg/dL (8.4-10.2) 05/29/21 04:17 Total Bilirubin 0.80 mg/dL (0.1-1.2) 05/29/21 04:17 Direct Bilirubin 0.2 mg/dL (0-0.2) 05/28/21 09:03 Indirect Bilirubin 0.4 mg/dL 05/28/21 09:03 AST 10 units/L (5-40) 05/29/21 04:17 ALT 7 units/L (7-56) 05/29/21 04:17 Alkaline Phosphatase 48 units/L (35-129) 05/29/21 04:17 Total Protein 7.2 g/dL (6.3-8.2) 05/29/21 04:17 Albumin 4.2 g/dL (3.9-5) 05/29/21 04:17 Albumin/Globulin Ratio 1.4 % 05/29/21 04:17 Lipase 73 units/L (13-60) H 05/28/21 09:03 Urine Color Jessie (Yellow) 05/28/21 11:04 Urine Turbidity Clear (Clear) 05/28/21 11:04 Urine pH 5.0 (5.0-7.0) 05/28/21 11:04 Ur Specific Paige 1.034 (1.003-1.030) H 05/28/21 11:04 Urine Protein 30 mg/dl mg/dL (Negative) 05/28/21 11:04 Urine Glucose (UA) Neg mg/dL (Negative) 05/28/21 11:04 Urine Ketones Tr mg/dL (Negative) 05/28/21 11:04 Urine Blood Neg (Negative) 05/28/21 11:04 Urine Nitrite Neg (Negative) 05/28/21 11:04 Urine Bilirubin Sm (Negative) 05/28/21 11:04 Urine Ictotest Negative (Negative) 05/28/21 11:04 Urine Urobilinogen 4.0 mg/dL (<2.0) 05/28/21 11:04 Ur Leukocyte Esterase Neg (Negative) 05/28/21 11:04 Urine WBC (Auto) 3.0 /HPF (0.0-6.0) 05/28/21 11:04 Urine RBC (Auto) 12.0 /HPF (0.0-6.0) 05/28/21 11:04 U Epithel Cells (Auto) < 1.0 /HPF (0-13.0) 05/28/21 11:04 Calcium Oxalate Crystal 1+ 05/28/21 11:04 Urine Mucus 2+ /HPF 05/28/21 11:04 Coronavirus (PCR) Negative (Negative) 05/29/21 Unknown Active Medications - Current Medications Current Medications: Generic Name Dose Route Start Last Admin Trade Name Freq PRN Reason Stop Dose Admin Acetaminophen 650 mg 05/28/21 14:11 Acetaminophen 325 Mg Tab PO Q4H PRN Pain MILD(1-3)/Fever >100.5/SORIA Albuterol 2.5 mg 05/28/21 14:11 Albuterol 2.5 Mg/3 Ml Nebu IH Q4HRT PRN Shortness Of Breath Hydromorphone HCl 0.5 mg 05/29/21 09:00 05/30/21 05:45 Hydromorphone 1 Mg/1 Ml Inj IV 0.5 mg Q3H PRN Administration Pain , Severe (7-10) Sodium Chloride 1,000 mls @ 125 mls/hr 05/28/21 14:15 Nacl 0.9% 1000 Ml IV DIRECT CHARY Piperacillin Sod/Tazobactam Sod 4.5 gm in 100 mls @ 200 mls/hr 05/29/21 11:00 05/30/21 05:47 Zosyn/Ns 4.5gm/100ml IV 200 mls/hr Q8H CHARY Administration Protocol Ketorolac Tromethamine 15 mg 05/29/21 09:00 05/30/21 00:08 Ketorolac 30 Mg/1 Ml Inj IV 06/03/21 08:59 15 mg Q12H CHARY Administration Ondansetron HCl 4 mg 05/28/21 14:11 Ondansetron 4 Mg/2 Ml Inj IV Q8H PRN Nausea And Vomiting Oxycodone/Acetaminophen 1 tab 05/28/21 14:11 05/29/21 02:40 Oxycodone /Acetaminophen 5-325mg Tab PO 1 tab Q16H PRN Administration Pain, Moderate (4-6) Pantoprazole Sodium 40 mg 05/29/21 10:00 05/29/21 10:00 Pantoprazole 40 Mg Inj IV 40 mg QDAY CHARY Administration Simethicone 80 mg 05/29/21 02:44 05/29/21 02:57 Simethicone 80 Mg Chew Tab PO 80 mg Q6H PRN Administration Gas pain Sodium Chloride 10 ml 05/28/21 22:00 05/30/21 00:09 Sodium Chloride 0.9% 10 Ml Flush Syringe IV 10 ml BID CHARY Administration Sodium Chloride 10 ml 05/28/21 14:11 Sodium Chloride 0.9% 10 Ml Flush Syringe IV PRN PRN LINE FLUSH
--- NOTE | 2021-05-30 09:42 | XRay Report ---
ABDOMINAL SERIES WITH CHEST X-RAY ONE VIEW INDICATION: abdominal distension. COMPARISON: 05/29/2021 IMPRESSION: Single view of the chest remains unremarkable. A nasogastric tube has been inserted whi ch terminates in the fundus of the stomach. Multiple dilated small bowel loops with moderate to large air-fluid levels appear stable since yesterday's exam. No free air is appreciated on the upright vie w. No significant change since yesterday's exam. Signer Name: Edward Colmenares Jr, MD Signed: 05/30/2021 9:38 AM Workstation Name: [id number]
[2021-05-30] MEDS: PANTOPRAZOLE 40 MG INJ IV SCH (09:52)
[2021-05-30] MEDS: SODIUM CHLORIDE 0.9% 1000 ML 1,000 ML IV SCH ×2 (09:52→23:13)
[2021-05-30 11:44] LABS: Hematocrit 38.7 % (35.5-45.6); Hemoglobin 12.3 gm/dl (11.8-15.2); Mean Corpuscular HGB Conc 32 % (32-34); Mean Corpuscular Volume 84 fl (84-94); Platelet Count 293 K/mm3 (140-440); Red Blood Count 4.61 M/mm3 (3.65-5.03); Red Cell Distribution Width 13.5 % (13.2-15.2)
[2021-05-30 12:03] LABS: BUN/Creatinine Ratio 20; Blood Urea Nitrogen 16 mg/dL (9-20); Calcium 8.7 mg/dL (8.4-10.2); Hemolysis Index 3
--- NOTE | 2021-05-30 15:06 | Progress Note ---
Assessment and Plan 41 yo M with partial colonic obstruction 2/2 descending colon mass vs infection/inflammatory process Ct A/P reviewed from 05/28/21 and 05/09/21 - mural thickening of portion of descending colon with mild inflammatory stranding, no perforation. Distal colon with some air/stool but decompressed. Dilatation of proximal colon and diffuse small bowel distension. No free fluid or free air. Obs series 05/30/21- persistent dilatation of small bowel with air fluid levels Plan: 1. continue NPO. May have 1/2 cup ice chips q shift 2. IVF 3. NGT to LIWS 4. IV abx - zosyn 5. prn pain and nausea control 6. DVT ppx 7. GI on board. Possible flex sig tomorrow. 8. Daily abd xray 9. May need colonic resection if obstruction does not improve Pt remains stable. Will follow. Thank you, please call with questions. Subjective Date of service: 05/30/21 Narrative: Pt seen and examined. States he feels well overall. NGT was not connected several hours overnight. He states he is passing flatus and had many normal BMs overnight. States his abdomen is only slightly distended compared to baseline. No f/c. No n/v Objective Vital Signs - 12hr 05/30/21 05/30/21 05/30/21 07:30 09:12 11:34 Temperature 97.8 F 98.3 F 98.1 F Pulse Rate 75 70 Respiratory 18 18 Rate Blood Pressure 157/101 141/78 O2 Sat by Pulse 96 95 Oximetry - General physical appearance Narrative Exam: Gen: AAOx3. NAD ENT: NGT in place with thick light brown output CV: S1, S2+ Resp; even and unlabored Abd: soft, moderately distended, NT. No r/r/g Ext: no c/c/e - Labs 05/30/21 11:29 05/30/21 11:29 Diabetes panel 05/30/21 Range/Units 11:29 Sodium 139 (137-145) mmol/L Potassium 3.6 (3.6-5.0) mmol/L Chloride 98.9 (98-107) mmol/L Carbon Dioxide 26 (22-30) mmol/L BUN 16 (9-20) mg/dL Creatinine 0.8 (0.8-1.3) mg/dL Glucose 96 (75-100) mg/dL Calcium 8.7 (8.4-10.2) mg/dL Calcium panel 05/30/21 Range/Units 11:29 Calcium 8.7 (8.4-10.2) mg/dL Pituitary panel 05/30/21 Range/Units 11:29 Sodium 139 (137-145) mmol/L Potassium 3.6 (3.6-5.0) mmol/L Chloride 98.9 (98-107) mmol/L Carbon Dioxide 26 (22-30) mmol/L BUN 16 (9-20) mg/dL Creatinine 0.8 (0.8-1.3) mg/dL Glucose 96 (75-100) mg/dL Calcium 8.7 (8.4-10.2) mg/dL Adrenal panel 05/30/21 Range/Units 11:29 Sodium 139 (137-145) mmol/L Potassium 3.6 (3.6-5.0) mmol/L Chloride 98.9 (98-107) mmol/L Carbon Dioxide 26 (22-30) mmol/L BUN 16 (9-20) mg/dL Creatinine 0.8 (0.8-1.3) mg/dL Glucose 96 (75-100) mg/dL Calcium 8.7 (8.4-10.2) mg/dL
[2021-05-30] MEDS ORDERED: FLEET ENEMA PR ONE (20:45)
--- NOTE | 2021-05-30 20:50 | Gastroenterology Progress Note ---
Assessment and Plan - Patient Problems (1) Colonic obstruction Current Visit: Yes Status: Acute Plan to address problem: - Unclear based on CT whether inflammatory or malignant obstruction, but initial CT a few weeks ago looked more like diverticulitis; lack of fever and normal WBC more concerning for a mass. - Agree with Surgery re:bowel rest, abx, IV fluids, NG suction - KUB today no significant improvement, but patient has had multiple BMs and is passing air. - Will re-assess for improvement with CT tomorrow, after stimulation with enema tonight. If continues significant improvement, will plan more bowel rest and full colon in 1-3 more days. If no progress at all, will try flex sig to assess lesion (likely malignancy) and tattoo for surgery. Subjective Date of service: 05/30/21 Principal diagnosis: Colon Obstruction Interval history: The patient has had only 200mls out from the NG, and three large BMs today. He feels that his abdomen is much less distended, and he continues to pass air during the day. No fevers or chills, and no N/V since passing the NG tube. Objective - Constitutional Vitals: Temp Pulse Resp BP Pulse Ox 98.5 F 67 18 138/75 98 05/30/21 17:57 05/30/21 17:57 05/30/21 17:57 05/30/21 17:57 05/30/21 17:57 General appearance: no acute distress - EENT Eyes: PERRL, EOM intact - Respiratory Respiratory effort: normal Respiratory: bilateral: CTA - Cardiovascular Rhythm: regular Heart Sounds: Present: S1 & S2 - Gastrointestinal General gastrointestinal: Present: soft, non-tender, distended (Moderate distention, and improved from yesterday), normal bowel sounds - Labs CBC & Chem 7: 05/30/21 11:29 05/30/21 11:29 Labs: Laboratory Results - last 24 hr 05/30/21 05/30/21 05/30/21 05:30 11:29 11:29 WBC 4.9 RBC 4.61 Hgb 12.3 Hct 38.7 MCV 84 MCH 27 L MCHC 32 RDW 13.5 Plt Count 293 PT 13.5 INR 0.93 Sodium 139 Potassium 3.6 Chloride 98.9 Carbon Dioxide 26 Anion Gap 18 BUN 16 Creatinine 0.8 Estimated GFR > 60 BUN/Creatinine Ratio 20 Glucose 96 Calcium 8.7
[2021-05-31] MEDS: PIPERACIL/TAZOBACTA 4.5/NS 100 4.5 GM/100 ML VIAL IV SCH ×3 (02:45→21:40)
[2021-05-31 05:53] LABS: Basophils % (Auto) 0.3 % (0.0-1.8); Hematocrit 36.6 % (35.5-45.6); Hemoglobin 11.5 gm/dl (11.8-15.2); Lymphocytes # (Auto) 1.3 K/mm3 (1.2-5.4); Lymphocytes % (Auto) 35.6 % (13.4-35.0); Mean Corpuscular HGB Conc 31 % (32-34); Mean Corpuscular Volume 85 fl (84-94); Monocytes # (Auto) 0.5 K/mm3 (0.0-0.8); Monocytes % (Auto) 12.1 % (0.0-7.3); Platelet Count 267 K/mm3 (140-440); Red Blood Count 4.31 M/mm3 (3.65-5.03)
[2021-05-31 06:11] LABS: Alanine Aminotransferase 6 units/L (7-56); Albumin 3.4 g/dL (3.9-5); BUN/Creatinine Ratio 21; Blood Urea Nitrogen 17 mg/dL (9-20); Hemolysis Index 3
--- NOTE | 2021-05-31 09:24 | Cat Scan Report ---
CT abdomen pelvis wo con INDICATION / CLINICAL INFORMATION: Constipation. TECHNIQUE: Axial CT images were obtained through the abdomen and pelvis without IV contrast. All CT scans at this location are performed using CT dose reduction for ALARA by means of automated exposure control. COMPARISON: CT dated 05/28/2019. FINDINGS: LOWER CHEST: Bibasilar volume loss. Enteric catheter terminates in the stomach. LIVER: No significant abnormality GALLBLADDER/BILIARY TREE: Gallbladder remains distended with increased density within the gallbladder , likely reflecting vicarious excretion. No biliary dilatation. PANCREAS: No significant abnormality SPLEEN: No significant abnormality ADRENALS: No significant abnormality KIDNEYS / URETER: No significant abnormality URINARY BLADDER: Bladder is decompressed, limiting further evaluation. REPRODUCTIVE ORGANS: No significant abnormality STOMACH / BOWEL: Prominent mural thickening and inflammatory stranding persists at the distal descend ing colon. Moderate colonic stool burden appears improved. Diffuse small bowel dilatation remains wit hout abrupt transition. No pneumatosis or free air. LYMPH NODES: No significant adenopathy. VASCULATURE: No significant abnormality. OTHER: No free fluid or focal fluid collection. SKELETAL SYSTEM: No acute osseous findings. IMPRESSION: 1. Prominent mural thickening and inflammatory stranding involving the distal descending colon appear s unchanged, likely reflecting focal colitis. 2. Small bowel remains diffusely dilated without abrupt transition, likely related to adynamic ileus. 3. Moderate colonic stool burden is improved. No other significant interval change from prior study. Signer Name: Max Fortune MD Signed: 05/31/2021 9:20 AM Workstation Name: [id number]
--- NOTE | 2021-05-31 10:19 | Gastroenterology Progress Note ---
Assessment and Plan - Patient Problems (1) Colonic obstruction Current Visit: Yes Status: Acute Plan to address problem: - Unclear based on CT whether inflammatory or malignant obstruction, but initial CT a few weeks ago looked more like diverticulitis; lack of fever and normal WBC more concerning for a mass. - Agree with Surgery re:bowel rest, abx, IV fluids, NG suction - Patient has passed multiple BMs in the last 36 hours, as well as air, and CT today shows improvement in the colon imaging, though the small bowel is still distended. - Will continue bowel rest and NG suction for now, and possible full colonoscopy on if small bowel decompresses and abdominal distention resolves. - Will also consult nutrition for PPN since NPO over 5 days now. Subjective Date of service: 05/31/21 Principal diagnosis: Colon Obstruction Interval history: The patient had another 2-3 BM last night, and a large one this AM, and continues to pass flatus. No N/V since the tube is in place, and has had 200ml out since last night. No fevers and no severe abdominal pain. Objective - Constitutional Vitals: Temp Pulse Resp BP Pulse Ox 98.8 F 72 18 130/60 96 05/31/21 05:12 05/31/21 05:12 05/31/21 05:12 05/31/21 05:12 05/31/21 05:12 General appearance: no acute distress - EENT ENT: other (Feculant material in NG tube) - Respiratory Respiratory effort: normal Respiratory: bilateral: CTA - Cardiovascular Rhythm: regular Heart Sounds: Present: S1 & S2 - Gastrointestinal General gastrointestinal: Present: soft, non-tender, distended (Less distended than yesterday), normal bowel sounds - Labs CBC & Chem 7: 05/31/21 04:42 05/31/21 04:42 Labs: Laboratory Results - last 24 hr 05/30/21 05/30/21 05/31/21 11:29 11:29 04:42 WBC 4.9 3.7 L RBC 4.61 4.31 Hgb 12.3 11.5 L Hct 38.7 36.6 MCV 84 85 MCH 27 L 27 L MCHC 32 31 L RDW 13.5 14.0 Plt Count 293 267 Lymph % (Auto) 35.6 H Dent % (Auto) 12.1 H Eos % (Auto) 1.0 Baso % (Auto) 0.3 Lymph # (Auto) 1.3 Dent # (Auto) 0.5 Eos # (Auto) 0.0 Baso # (Auto) 0.0 Seg Neutrophils % 51.0 Seg Neutrophils # 1.9 Sodium 139 Potassium 3.6 Chloride 98.9 Carbon Dioxide 26 Anion Gap 18 BUN 16 Creatinine 0.8 Estimated GFR > 60 BUN/Creatinine Ratio 20 Glucose 96 Calcium 8.7 Total Bilirubin AST ALT Alkaline Phosphatase Total Protein Albumin Albumin/Globulin Ratio 05/31/21 04:42 WBC RBC Hgb Hct MCV MCH MCHC RDW Plt Count Lymph % (Auto) [place] % (Auto) Eos % (Auto) Baso % (Auto) Lymph # (Auto) Dent # (Auto) Eos # (Auto) Baso # (Auto) Seg Neutrophils % Seg Neutrophils # Sodium 141 Potassium 3.2 L Chloride 103.7 Carbon Dioxide 24 Anion Gap 17 BUN 17 Creatinine 0.8 Estimated GFR > 60 BUN/Creatinine Ratio 21 Glucose 75 Calcium 8.0 L Total Bilirubin 0.70 AST 9 ALT 6 L Alkaline Phosphatase 44 Total Protein 6.3 Albumin 3.4 L Albumin/Globulin Ratio 1.2
[2021-05-31] MEDS: PANTOPRAZOLE 40 MG INJ IV SCH (15:53)
[2021-05-31] MEDS: KETOROLAC 30 MG/1 ML INJ IV SCH ×2 (15:53→21:41)
--- NOTE | 2021-05-31 16:30 | Progress Note ---
Assessment and Plan 41 yo M with partial colonic obstruction 2/2 descending colon mass vs infection/inflammatory process Ct A/P reviewed from 05/28/21 and 05/09/21 - mural thickening of portion of descending colon with mild inflammatory stranding, no perforation. Distal colon with some air/stool but decompressed. Dilatation of proximal colon and diffuse small bowel distension. No free fluid or free air. Obs series 05/31/21- persistent dilatation of small bowel with air fluid level CT A/P 05/31/21 - improvement in colonic dilatation and stool burden. Small bowel with with diffuse mod distension without transition point consistent with ileus. Plan: 1. continue NPO. May have 1/2 cup ice chips q shift 2. IVF 3. NGT to LIWS 4. IV abx - zosyn 5. prn pain and nausea control 6. DVT ppx 7. GI on board. Possible colonoscopy if able to prep 8. May need colonic resection if obstruction does not improve Pt remains stable. Will follow. Thank you, please call with questions. Subjective Date of service: 05/31/21 Narrative: Pt seen and examined. No acute complaints. States abdomen is back to normal. He feels well. Afebrile. No n/v. +Flatus and multiple additional BMs. Objective Vital Signs - 12hr 05/31/21 05/31/21 05/31/21 05:12 09:03 12:00 Temperature 98.8 F 97.8 F Pulse Rate 72 75 Respiratory 18 18 Rate Blood Pressure 130/60 153/90 O2 Sat by Pulse 96 96 99 Oximetry - General physical appearance Narrative Exam: Gen.: Awake, alert, oriented x3. No apparent distress ENT: NG tube in place with dark brown drainage. trachea midline. No lymphadenopathy. No scleral icterus or conjunctival pallor CV: S1, S2 present Respiratory: No audible wheezes Abdomen: Soft, nontender, only mildly distended. No rebound, rigidity, guarding Extremities: No clubbing, cyanosis, edema - Labs 05/31/21 04:42 05/31/21 04:42 Diabetes panel 05/31/21 Range/Units 04:42 Sodium 141 (137-145) mmol/L Potassium 3.2 L (3.6-5.0) mmol/L Chloride 103.7 (98-107) mmol/L Carbon Dioxide 24 (22-30) mmol/L BUN 17 (9-20) mg/dL Creatinine 0.8 (0.8-1.3) mg/dL Glucose 75 (75-100) mg/dL Calcium 8.0 L (8.4-10.2) mg/dL AST 9 (5-40) units/L ALT 6 L (7-56) units/L Alkaline Phosphatase 44 (35-129) units/L Total Protein 6.3 (6.3-8.2) g/dL Albumin 3.4 L (3.9-5) g/dL Calcium panel 05/31/21 05/31/21 Range/Units 04:42 13:56 Calcium 8.0 L (8.4-10.2) mg/dL Phosphorus 3.80 (2.5-4.5) mg/dL Albumin 3.4 L (3.9-5) g/dL Pituitary panel 05/31/21 Range/Units 04:42 Sodium 141 (137-145) mmol/L Potassium 3.2 L (3.6-5.0) mmol/L Chloride 103.7 (98-107) mmol/L Carbon Dioxide 24 (22-30) mmol/L BUN 17 (9-20) mg/dL Creatinine 0.8 (0.8-1.3) mg/dL Glucose 75 (75-100) mg/dL Calcium 8.0 L (8.4-10.2) mg/dL Adrenal panel 05/31/21 Range/Units 04:42 Sodium 141 (137-145) mmol/L Potassium 3.2 L (3.6-5.0) mmol/L Chloride 103.7 (98-107) mmol/L Carbon Dioxide 24 (22-30) mmol/L BUN 17 (9-20) mg/dL Creatinine 0.8 (0.8-1.3) mg/dL Glucose 75 (75-100) mg/dL Calcium 8.0 L (8.4-10.2) mg/dL Total Bilirubin 0.70 (0.1-1.2) mg/dL AST 9 (5-40) units/L ALT 6 L (7-56) units/L Alkaline Phosphatase 44 (35-129) units/L Total Protein 6.3 (6.3-8.2) g/dL Albumin 3.4 L (3.9-5) g/dL
--- NOTE | 2021-05-31 17:58 | XRay Report ---
Abdominal series INDICATION: Small bowel obstruction FINDINGS: Diffuse dilatation of small bowel loops throughout the abdomen suggesting a distal small tanna wel obstruction with fluid levels. No free air is definitely seen. NG tube is in the proximal stomach however sidehole may be in the distal esophagus and could be advanced. Lungs are clear. Signer Name: Beck James MD Signed: 05/31/2021 5:53 PM Workstation Name: [id number]
[2021-05-31] MEDS ORDERED: AMINO ACIDS 4.25%/DEXTROSE 10% 2,000 ML IV SCH (20:00)
[2021-06-01] MEDS: PIPERACIL/TAZOBACTA 4.5/NS 100 4.5 GM/100 ML VIAL IV SCH ×3 (03:23→23:25)
[2021-06-01 05:57] LABS: BUN/Creatinine Ratio 16; Blood Urea Nitrogen 13 mg/dL (9-20); Calcium 8.1 mg/dL (8.4-10.2); Hemolysis Index 0
--- NOTE | 2021-06-01 08:02 | Progress Note ---
Assessment and Plan Assessment and Plan #Colon Obstruction #Acute abdominal pain 41 yo M with partial colonic obstruction 2/2 descending colon mass vs infection/inflammatory process Ct A/P reviewed from 05/28/21 and 05/09/21 - mural thickening of portion of descending colon with mild inflammatory stranding, no perforation. Distal colon with some air/stool but decompressed. Dilatation of proximal colon and diffuse small bowel distension. No free fluid or free air. Obs series 05/31/21- persistent dilatation of small bowel with air fluid level CT A/P 05/31/21 - improvement in colonic dilatation and stool burden. Small bowel with with diffuse mod distension without transition point consistent with ileus. Plan: 1. continue NPO. May have 1/2 cup ice chips q shift 2. IVF 3. NGT to LIWS 4. IV abx - zosyn 5. prn pain and nausea control 6. DVT ppx 7. GI on board. Possible colonoscopy if able to prep 8. May need colonic resection if obstruction does not improve Pt remains stable. #Elevated blood pressure Patient has not been diagnosed with hypertension. Elevated blood pressures might be in the setting of abdominal pain. Holding on initiating antihypertensives. Continue to monitor. #Obesity #Weight loss counseling #Exercise counseling - BMI 35.2 - Counseled patient on the importance of weight loss, incorporating exercise, and dietary changes (lean meats, fresh fruits and vegetables, and water intake). Patient expresses understanding. - Time: +15 min #Tobacco dependence #Tobacco/Smoking cessation counseling - Counseled patient about the importance of smoking cessation and the possible sequelae as a result of continued tobacco consumption. The patient expresses understanding. -Time: +15 mins #Advanced care planning -Disease education conducted, care plan discussed, diagnoses discussed, prognosis discussed, and patient acknowledges understanding with care plan -Time: +30 min Disposition Plan: Continue medical management Total Time Spent with Patient (Minutes): 45 minutes Subjective Date of service: 05/31/21 Principal diagnosis: Colon Obstruction, colon mass Interval history: 41 YO Male with Obesity, Nicotine Dependence, Nephrolithiasis, LDD presents to ED for evaluation. Patient reports "my stomach hurts and I feel bloated". Patient states that he had experienced abdominal discomfort, constipation, and feeling bloated over the past 2 days with intermittent symptoms over the same timeframe. Patient acknowledges nausea, multiple episodes of vomiting. Patient states that he experienced the aforementioned symptoms 1 week ago and was seen and evaluated in the emergency department and discharged home with oral antibiotic therapy. Patient reports compliance with outpatient therapy with return of the aforementioned symptoms. Patient transported [facility] via private vehicle for further care and evaluation of the aforementioned symptoms. The patient was seen and evaluated in the emergency department. All lab and imaging studies reviewed. Patient underwent CT scan of the abdomen and pelvis which revealed evidence of colitis. Patient placed in observation status and admitted to medical floor due to increased risk of worsening symptoms. Surgical team consulted in ED. GI team consulted in ED. Patient denies fever, chills, chest pain, palpitation, cough, skin rash, recent ill contact, ingestion of food/water from new or different sources, or nondisplaced to COVID-19. No prior admission for review. No medication listed at time of admission for reconciliation. Advanced care planning conducted in ED. 05/31/[address] Has colon mass Surgery follow-up appreciated Objective - Constitutional Vitals: Vital Signs - 12hr 05/31/21 06/01/21 06/01/21 23:23 00:00 03:29 Temperature 97.9 F 97.9 F Pulse Rate 70 70 Respiratory 18 17 18 Rate Blood Pressure 133/78 131/83 O2 Sat by Pulse 96 98 94 Oximetry General appearance: Present: no acute distress, well-nourished - EENT Eyes: PERRL, EOM intact ENT: hearing intact, clear oral mucosa Ears: bilateral: normal - Neck Neck: supple, normal ROM - Respiratory Respiratory effort: normal Respiratory: bilateral: CTA - Breasts Breasts: normal - Cardiovascular Heart rate: 78 Rhythm: regular Heart Sounds: Present: S1 & S2. Absent: gallop, rub Extremities: pulses intact, No edema, normal color, Full ROM - Gastrointestinal General gastrointestinal: Present: soft, non-tender, tender, hypoactive bowel sounds - Genitourinary Male genitourinary: normal - Integumentary Integumentary: clear, warm, dry - Musculoskeletal Musculoskeletal: 1, strength equal bilaterally - Neurologic Neurologic: moves all extremities - Psychiatric Psychiatric: memory intact, appropriate mood/affect, intact judgment & insight - Labs CBC & Chem 7: 05/31/21 04:42 06/01/21 05:07 Labs: Abnormal lab results 06/01/21 Range/Units 05:07 Potassium 3.4 L (3.6-5.0) mmol/L Carbon Dioxide 21 L (22-30) mmol/L Glucose 67 L (75-100) mg/dL Calcium 8.1 L (8.4-10.2) mg/dL
--- NOTE | 2021-06-01 10:46 | Progress Note ---
Assessment and Plan Assessment and plan: 41 yo M with partial colonic obstruction 2/2 descending colon mass vs infection/inflammatory process Ct A/P reviewed from 05/28/21 and 05/09/21 - mural thickening of portion of descending colon with mild inflammatory stranding, no perforation. Distal colon with some air/stool but decompressed. Dilatation of proximal colon and diffuse small bowel distension. No free fluid or free air. Obs series 05/31/21- persistent dilatation of small bowel with air fluid level CT A/P 05/31/21 - improvement in colonic dilatation and stool burden. Small bowel with with diffuse mod distension without transition point consistent with ileus. Colon obstruction Hypertension Obesity Tobacco dependence 06/01/2021. Patient for colonoscopy tomorrow. Continue NPO. Patient currently with NGT to low intermittent suction. Patient with approximately 1000 cc. Continue IV antibiotics. Continue antiemetics and pain control. Continue supportive care with IV fluid hydration History Interval history: No new issues overnight. Hospitalist Physical - Constitutional Vitals: Temp Pulse Resp BP Pulse Ox 98.5 F 78 20 137/87 96 06/01/21 09:08 06/01/21 09:08 06/01/21 09:08 06/01/21 09:08 06/01/21 09:08 General appearance: Present: no acute distress, well-nourished - EENT Eyes: Present: PERRL, EOM intact ENT: hearing intact, clear oral mucosa, dentition normal - Neck Neck: Present: supple, normal ROM - Respiratory Respiratory effort: normal Respiratory: bilateral: CTA - Cardiovascular Rhythm: regular Heart Sounds: Present: S1 & S2. Absent: gallop, rub - Extremities Extremities: no ischemia, No edema, Full ROM - Abdominal General gastrointestinal: soft, non-tender, non-distended, normal bowel sounds - Integumentary Integumentary: Present: clear, warm, dry - Neurologic Neurologic: CNII-XII intact, moves all extremities Results - Labs CBC & Chem 7: 05/31/21 04:42 06/01/21 05:07 Labs: Laboratory Last Values WBC 3.7 K/mm3 (4.5-11.0) L 05/31/21 04:42 RBC 4.31 M/mm3 (3.65-5.03) 05/31/21 04:42 Hgb 11.5 gm/dl (11.8-15.2) L 05/31/21 04:42 Hct 36.6 % (35.5-45.6) 05/31/21 04:42 MCV 85 fl (84-94) 05/31/21 04:42 MCH 27 pg (28-32) L 05/31/21 04:42 MCHC 31 % (32-34) L 05/31/21 04:42 RDW 14.0 % (13.2-15.2) 05/31/21 04:42 Plt Count 267 K/mm3 (140-440) 05/31/21 04:42 Lymph % (Auto) 35.6 % (13.4-35.0) H 05/31/21 04:42 [place] % (Auto) 12.1 % (0.0-7.3) H 05/31/21 04:42 Eos % (Auto) 1.0 % (0.0-4.3) 05/31/21 04:42 Baso % (Auto) 0.3 % (0.0-1.8) 05/31/21 04:42 Lymph # (Auto) 1.3 K/mm3 (1.2-5.4) 05/31/21 04:42 [place] # (Auto) 0.5 K/mm3 (0.0-0.8) 05/31/21 04:42 Eos # (Auto) 0.0 K/mm3 (0.0-0.4) 05/31/21 04:42 Baso # (Auto) 0.0 K/mm3 (0.0-0.1) 05/31/21 04:42 Seg Neutrophils % 51.0 % (40.0-70.0) 05/31/21 04:42 Seg Neutrophils # 1.9 K/mm3 (1.8-7.7) 05/31/21 04:42 PT 13.5 Sec. (12.2-14.9) 05/30/21 05:30 INR 0.93 (0.87-1.13) 05/30/21 05:30 Sodium 145 mmol/L (137-145) 06/01/21 05:07 Potassium 3.4 mmol/L (3.6-5.0) L 06/01/21 05:07 Chloride 104.9 mmol/L (98-107) 06/01/21 05:07 Carbon Dioxide 21 mmol/L (22-30) L 06/01/21 05:07 Anion Gap 23 mmol/L 06/01/21 05:07 BUN 13 mg/dL (9-20) 06/01/21 05:07 Creatinine 0.8 mg/dL (0.8-1.3) 06/01/21 05:07 Estimated GFR > 60 ml/min 06/01/21 05:07 BUN/Creatinine Ratio 16 % 06/01/21 05:07 Glucose 67 mg/dL (75-100) L 06/01/21 05:07 Calcium 8.1 mg/dL (8.4-10.2) L 06/01/21 05:07 Phosphorus 4.40 mg/dL (2.5-4.5) 06/01/21 05:07 Magnesium 1.80 mg/dL (1.7-2.3) 06/01/21 05:07 Total Bilirubin 0.70 mg/dL (0.1-1.2) 05/31/21 04:42 Direct Bilirubin 0.2 mg/dL (0-0.2) 05/28/21 09:03 Indirect Bilirubin 0.4 mg/dL 05/28/21 09:03 AST 9 units/L (5-40) 05/31/21 04:42 ALT 6 units/L (7-56) L 05/31/21 04:42 Alkaline Phosphatase 44 units/L (35-129) 05/31/21 04:42 Total Protein 6.3 g/dL (6.3-8.2) 05/31/21 04:42 Albumin 3.4 g/dL (3.9-5) L 05/31/21 04:42 Albumin/Globulin Ratio 1.2 % 05/31/21 04:42 Lipase 73 units/L (13-60) H 05/28/21 09:03 Urine Color Jessie (Yellow) 05/28/21 11:04 Urine Turbidity Clear (Clear) 05/28/21 11:04 Urine pH 5.0 (5.0-7.0) 05/28/21 11:04 Ur Specific [place] 1.034 (1.003-1.030) H 05/28/21 11:04 Urine Protein 30 mg/dl mg/dL (Negative) 05/28/21 11:04 Urine Glucose (UA) Neg mg/dL (Negative) 05/28/21 11:04 Urine Ketones Tr mg/dL (Negative) 05/28/21 11:04 Urine Blood Neg (Negative) 05/28/21 11:04 Urine Nitrite Neg (Negative) 05/28/21 11:04 Urine Bilirubin Sm (Negative) 05/28/21 11:04 Urine Ictotest Negative (Negative) 05/28/21 11:04 Urine Urobilinogen 4.0 mg/dL (<2.0) 05/28/21 11:04 Ur Leukocyte Esterase Neg (Negative) 05/28/21 11:04 Urine WBC (Auto) 3.0 /HPF (0.0-6.0) 05/28/21 11:04 Urine RBC (Auto) 12.0 /HPF (0.0-6.0) 05/28/21 11:04 U Epithel Cells (Auto) < 1.0 /HPF (0-13.0) 05/28/21 11:04 Calcium Oxalate Crystal 1+ 05/28/21 11:04 Urine Mucus 2+ /HPF 05/28/21 11:04 Coronavirus (PCR) Negative (Negative) 05/29/21 Unknown Gu/IV: Voiding Method Toilet Active Medications - Current Medications Current Medications: Generic Name Dose Route Start Last Admin Trade Name Freq PRN Reason Stop Dose Admin Acetaminophen 650 mg 05/28/21 14:11 Acetaminophen 325 Mg Tab PO Q4H PRN Pain MILD(1-3)/Fever >100.5/SORIA Albuterol 2.5 mg 05/28/21 14:11 Albuterol 2.5 Mg/3 Ml Nebu IH Q4HRT PRN Shortness Of Breath Hydromorphone HCl 0.5 mg 05/29/21 09:00 05/30/21 05:45 Hydromorphone 1 Mg/1 Ml Inj IV 0.5 mg Q3H PRN Administration Pain , Severe (7-10) Piperacillin Sod/Tazobactam Sod 4.5 gm in 100 mls @ 200 mls/hr 05/29/21 11:00 06/01/21 03:23 Zosyn/Ns 4.5gm/100ml IV 200 mls/hr Q8H CHARY Administration Protocol Amino Acids 2,000 mls @ 83.33 mls/hr 05/31/21 20:00 06/01/21 07:49 Clinimix 4.25%-10% Solution IV 06/01/21 19:59 83.33 mls/hr ONCE CHARY Administration Ketorolac Tromethamine 15 mg 05/29/21 09:00 05/31/21 21:41 Ketorolac 30 Mg/1 Ml Inj IV 06/03/21 08:59 15 mg Q12H CHARY Administration Ondansetron HCl 4 mg 05/28/21 14:11 Ondansetron 4 Mg/2 Ml Inj IV Q8H PRN Nausea And Vomiting Oxycodone/Acetaminophen 1 tab 05/28/21 14:11 05/29/21 02:40 Oxycodone /Acetaminophen 5-325mg Tab PO 1 tab Q16H PRN Administration Pain, Moderate (4-6) Pantoprazole Sodium 40 mg 05/29/21 10:00 05/31/21 15:53 Pantoprazole 40 Mg Inj IV 40 mg QDAY CHARY Administration Simethicone 80 mg 05/29/21 02:44 05/29/21 02:57 Simethicone 80 Mg Chew Tab PO 80 mg Q6H PRN Administration Gas pain Sodium Chloride 10 ml 05/28/21 22:00 05/31/21 21:40 Sodium Chloride 0.9% 10 Ml Flush Syringe IV 10 ml BID CHARY Administration Sodium Chloride 10 ml 05/28/21 14:11 Sodium Chloride 0.9% 10 Ml Flush Syringe IV PRN PRN LINE FLUSH Nutrition/Malnutrition Assess - Dietary Evaluation Nutrition/Malnutrition Findings: Nutrition Notes Start: 05/31/21 11:10 Freq: Status: Active Protocol: Document 06/01/21 09:34 ALLI (Rec: 06/01/21 09:47 ALLI [id number]) Nutrition Notes Initial or Follow up Reassessment Other Pertinent Diagnosis Colonic obstruction, Colitis, Abdominal pain, Acute HTN. Current Diet PPN (since D 05/31). Labs/Tests 06/01: K 3.4, CO2 21, Glu 67, Ca 8.1. Pertinent Medications 06/01: Nutritionally unremarkable. Height 5 ft 9 in Weight 108.65 kg [place] Body Weight (kg) 72.72 BMI 35.4 Weight change and time frame 0.5 Kg body weight loss in 1 day reported. Weight Status Obese Subjective/Other Information RD consult for routine F/U on PPN. Improvement in colonic dilatatio and stool burden. Small bowel with diffuse mod distention without transition point, consistent with ileus, according to Progress notes. BMP, Mg, Phos labs ordered. Burn Absent Trauma Absent GI Symptoms Other Food Allergy No Skin Integrity/Comment Clear, warm, dry. Current % PO Other Minimum of two criteria No #1 Nutrition Diagnosis Altered GI function Comments: Improvement in colonic dilatatio and stool burden. Small bowel with diffuse mod distention without transition point, consistent with ileus, according to Progress notes. Diagnosis Progress(for reassessment Continues documentation) Is patient on ventilator? No Is Patient Ambulatory and/or Out of Bed Yes REE-([place]-St. Jeor-ambulatory/OOB) [ 2563.444 [id number]] Kcal/Kg value to use for calculation 14 Approximate Energy Requirements Using 1521 kcal/Kg Calculation Used for Recommendations Kcal/kg Additional Notes Protein: 0.8-1 g/Kg; 73-91 g/ day. Fluids: 1 ml/Kcal, or as per MD. Nutrition Intervention Goal #1 Provide at least 75% of energy /protein needs through Parenteral Feeding during LOS. Follow-Up By: 06/02/21 Additional Comments Continue monitoring PPN tolerance and BM. BMP, Mg, Phos labs ordered.
[2021-06-01] MEDS: PANTOPRAZOLE 40 MG INJ IV SCH (11:22)
[2021-06-01] MEDS: KETOROLAC 30 MG/1 ML INJ IV SCH ×3 (11:22→23:34)
--- NOTE | 2021-06-01 14:01 | Gastroenterology Progress Note ---
Assessment and Plan - Patient Problems (1) Colonic obstruction Current Visit: Yes Status: Acute Plan to address problem: - Unclear based on CT whether inflammatory or malignant obstruction, but initial CT a few weeks ago looked more like diverticulitis; lack of fever and normal WBC more concerning for a mass. - Agree with Surgery re:bowel rest, abx, IV fluids, NG suction - Patient has passed multiple BMs in the last 48 hours, as well as air, and CT yesterday shows improvement in the colon imaging, though the small bowel is still distended. - Repeat KUB today, and possible colonoscopy on Sunday if improved, after bowel prep. Subjective Date of service: 06/01/21 Principal diagnosis: Colon Obstruction, colon mass Interval history: The patient continues to pass BMs and air, and has no N/V/abdominal pain. His NG cannister is full, but he is taking copious ice chips. Objective - Constitutional Vitals: Temp Pulse Resp BP Pulse Ox 98.5 F 78 20 137/87 96 06/01/21 09:08 06/01/21 09:08 06/01/21 09:08 06/01/21 09:08 06/01/21 09:08 General appearance: no acute distress - EENT Eyes: PERRL, EOM intact ENT: hearing intact, clear oral mucosa, other (NG with brownish material) - Neck Neck: supple, normal ROM - Respiratory Respiratory effort: normal Respiratory: bilateral: CTA - Gastrointestinal General gastrointestinal: Present: soft, non-tender, non-distended - Labs CBC & Chem 7: 05/31/21 04:42 06/01/21 05:07 Labs: Laboratory Results - last 24 hr 05/31/21 06/01/21 13:56 05:07 Sodium 145 Potassium 3.4 L Chloride 104.9 Carbon Dioxide 21 L Anion Gap 23 BUN 13 Creatinine 0.8 Estimated GFR > 60 BUN/Creatinine Ratio 16 Glucose 67 L Calcium 8.1 L Phosphorus 3.80 4.40 Magnesium 2.00 1.80
--- NOTE | 2021-06-01 14:02 | Progress Note ---
Assessment and Plan 41 yo M with partial colonic obstruction 2/2 descending colon mass vs infection/inflammatory process Ct A/P reviewed from 05/28/21 and 05/09/21 - mural thickening of portion of descending colon with mild inflammatory stranding, no perforation. Distal colon with some air/stool but decompressed. Dilatation of proximal colon and diffuse small bowel distension. No free fluid or free air. Obs series 05/31/21- persistent dilatation of small bowel with air fluid level CT A/P 05/31/21 - improvement in colonic dilatation and stool burden. Small bowel with with diffuse mod distension without transition point consistent with ileus. Plan: 1. continue NPO. May have 1/2 cup ice chips q shift. PPN 2. IVF 3. NGT to LIWS. Likely elevated output d/t increased ice chips consumption 4. IV abx - zosyn 5. prn pain and nausea control 6. DVT ppx 7. Obtain KUB 8. GI on board. If KUB improved, possible cscope Sunday. D/W Dr. Edwards 9. May need colonic resection if obstruction does not improve Pt remains stable. Having bowel function. Abdomen back to baseline. Will follow. Thank you, please call with questions. Subjective Date of service: 06/01/21 Narrative: Pt seen and examined. States his abdomen is back to baseline. No pain. Had multiple additional bowel movements and is passing flatus. No nausea or vomiting. He is consuming multiple cups of ice chips. No fevers or chills Objective Vital Signs - 12hr 06/01/21 06/01/21 06/01/21 03:29 08:22 08:49 Temperature 97.9 F Pulse Rate 70 Respiratory 18 Rate Blood Pressure 131/83 O2 Sat by Pulse 94 99 97 Oximetry 06/01/21 09:08 Temperature 98.5 F Pulse Rate 78 Respiratory 20 Rate Blood Pressure 137/87 O2 Sat by Pulse 96 Oximetry - General physical appearance Narrative Exam: Gen.: Awake, alert, oriented x3. No apparent distress ENT: NG tube with gastric output. trachea midline. No lymphadenopathy. No scleral icterus or conjunctival pallor CV: S1, S2 present Respiratory: No audible wheezes Abdomen: Soft, nondistended, nontender. No rebound, rigidity, guarding Extremities: No clubbing, cyanosis, edema - Labs 05/31/21 04:42 06/01/21 05:07 Diabetes panel 06/01/21 Range/Units 05:07 Sodium 145 (137-145) mmol/L Potassium 3.4 L (3.6-5.0) mmol/L Chloride 104.9 (98-107) mmol/L Carbon Dioxide 21 L (22-30) mmol/L BUN 13 (9-20) mg/dL Creatinine 0.8 (0.8-1.3) mg/dL Glucose 67 L (75-100) mg/dL Calcium 8.1 L (8.4-10.2) mg/dL Calcium panel 05/31/21 06/01/21 Range/Units 13:56 05:07 Calcium 8.1 L (8.4-10.2) mg/dL Phosphorus 3.80 4.40 (2.5-4.5) mg/dL Pituitary panel 06/01/21 Range/Units 05:07 Sodium 145 (137-145) mmol/L Potassium 3.4 L (3.6-5.0) mmol/L Chloride 104.9 (98-107) mmol/L Carbon Dioxide 21 L (22-30) mmol/L BUN 13 (9-20) mg/dL Creatinine 0.8 (0.8-1.3) mg/dL Glucose 67 L (75-100) mg/dL Calcium 8.1 L (8.4-10.2) mg/dL Adrenal panel 06/01/21 Range/Units 05:07 Sodium 145 (137-145) mmol/L Potassium 3.4 L (3.6-5.0) mmol/L Chloride 104.9 (98-107) mmol/L Carbon Dioxide 21 L (22-30) mmol/L BUN 13 (9-20) mg/dL Creatinine 0.8 (0.8-1.3) mg/dL Glucose 67 L (75-100) mg/dL Calcium 8.1 L (8.4-10.2) mg/dL
--- NOTE | 2021-06-01 15:14 | XRay Report ---
ABDOMEN 1 VIEW INDICATION / CLINICAL INFORMATION: ileus. COMPARISON: One day prior FINDINGS: TUBES / LINES: Enteric tube noted within stomach. BOWEL GAS PATTERN: Gaseous distention of bowel loops is less prominent on today's examination compare d to reference from one day prior. FREE AIR / EXTRALUMINAL GAS: None seen. ADDITIONAL FINDINGS: No significant additional findings. IMPRESSION: 1. Interval improvement in gaseous prominence of bowel throughout the mid abdomen compared to referen ce exam from yesterday. Signer Name: Maxwell Ramirez MD Signed: 06/01/2021 3:09 PM Workstation Name: [employer]
[2021-06-01] MEDS ORDERED: TOTAL PARENTERAL NUTRITION 2,400 ML IV SCH (20:00)
[2021-06-02] MEDS: PIPERACIL/TAZOBACTA 4.5/NS 100 4.5 GM/100 ML VIAL IV SCH ×3 (05:19→21:08)
[2021-06-02 07:24] LABS: Basophils % (Auto) 0.5 % (0.0-1.8); Eosinophils # (Auto) 0.1 K/mm3 (0.0-0.4); Eosinophils % (Auto) 1.7 % (0.0-4.3); Lymphocytes # (Auto) 1.4 K/mm3 (1.2-5.4); Lymphocytes % (Auto) 30.4 % (13.4-35.0); Mean Corpuscular HGB Conc 31 % (32-34); Mean Corpuscular Volume 84 fl (84-94); Monocytes # (Auto) 0.4 K/mm3 (0.0-0.8); Monocytes % (Auto) 9.1 % (0.0-7.3); Platelet Count 294 K/mm3 (140-440); Red Blood Count 4.59 M/mm3 (3.65-5.03); Red Cell Distribution Width 13.8 % (13.2-15.2)
[2021-06-02 07:26] LABS: Hematocrit 38.6 % (35.5-45.6); Hemoglobin 11.8 gm/dl (11.8-15.2)
[2021-06-02 07:41] LABS: Blood Urea Nitrogen 10 mg/dL (9-20); Calcium 8.4 mg/dL (8.4-10.2); Hemolysis Index 4
[2021-06-02 07:44] LABS: BUN/Creatinine Ratio 14
[2021-06-02] MEDS: KETOROLAC 30 MG/1 ML INJ IV SCH ×2 (09:53→21:22)
[2021-06-02] MEDS: PANTOPRAZOLE 40 MG INJ IV SCH (09:53)
[2021-06-02] MEDS: POTASSIUM CHLORIDE 10 MEQ 10 MEQ/100 ML BAG IV SCH ×4 (11:00→14:00)
--- NOTE | 2021-06-02 12:56 | Progress Note ---
Assessment and Plan Assessment and plan: 41 yo M with partial colonic obstruction 2/2 descending colon mass vs infection/inflammatory process Ct A/P reviewed from 05/28/21 and 05/09/21 - mural thickening of portion of descending colon with mild inflammatory stranding, no perforation. Distal colon with some air/stool but decompressed. Dilatation of proximal colon and diffuse small bowel distension. No free fluid or free air. Obs series 05/31/21- persistent dilatation of small bowel with air fluid level CT A/P 05/31/21 - improvement in colonic dilatation and stool burden. Small bowel with with diffuse mod distension without transition point consistent with ileus. Colon obstruction Hypertension Obesity Tobacco dependence 06/01/2021. Patient for colonoscopy tomorrow. Continue NPO. Patient currently with NGT to low intermittent suction. Patient with approximately 1000 cc. Continue IV antibiotics. Continue antiemetics and pain control. Continue supportive care with IV fluid hydration 06/02/2021. GI and surgery recommend bowel rest, antibiotics, IV fluids and NG suction. Patient has passed multiple BMs in the last 48 hours, as well as air, and CT yesterday shows improvement in the colon imaging, though the small bowel is still distended. Repeat KUB today, and possible colonoscopy on Sunday if improved, after bowel prep. History Interval history: No new issues overnight. Hospitalist Physical - Constitutional Vitals: Temp Pulse Resp BP Pulse Ox 98.4 F 70 18 127/75 99 06/02/21 03:19 06/02/21 03:19 06/02/21 03:19 06/02/21 03:06/02/21 11:41 General appearance: Present: no acute distress, well-nourished - EENT Eyes: Present: PERRL, EOM intact ENT: hearing intact, clear oral mucosa, dentition normal - Neck Neck: Present: supple, normal ROM - Respiratory Respiratory effort: normal Respiratory: bilateral: CTA - Cardiovascular Rhythm: regular Heart Sounds: Present: S1 & S2. Absent: gallop, rub - Extremities Extremities: no ischemia, No edema, Full ROM - Abdominal General gastrointestinal: soft, non-tender, non-distended, normal bowel sounds - Integumentary Integumentary: Present: clear, warm, dry - Neurologic Neurologic: CNII-XII intact, moves all extremities Results - Labs CBC & Chem 7: 06/02/21 07:07 06/02/21 07:07 Labs: Laboratory Last Values WBC 4.7 K/mm3 (4.5-11.0) 06/02/21 07:07 RBC 4.59 M/mm3 (3.65-5.03) 06/02/21 07:07 Hgb 11.8 gm/dl (11.8-15.2) 06/02/21 07:07 Hct 38.6 % (35.5-45.6) 06/02/21 07:07 MCV 84 fl (84-94) 06/02/21 07:07 MCH 26 pg (28-32) L 06/02/21 07:07 MCHC 31 % (32-34) L 06/02/21 07:07 RDW 13.8 % (13.2-15.2) 06/02/21 07:07 Plt Count 294 K/mm3 (140-440) 06/02/21 07:07 Lymph % (Auto) 30.4 % (13.4-35.0) 06/02/21 07:07 [place] % (Auto) 9.1 % (0.0-7.3) H 06/02/21 07:07 Eos % (Auto) 1.7 % (0.0-4.3) 06/02/21 07:07 Baso % (Auto) 0.5 % (0.0-1.8) 06/02/21 07:07 Lymph # (Auto) 1.4 K/mm3 (1.2-5.4) 06/02/21 07:07 [place] # (Auto) 0.4 K/mm3 (0.0-0.8) 06/02/21 07:07 Eos # (Auto) 0.1 K/mm3 (0.0-0.4) 06/02/21 07:07 Baso # (Auto) 0.0 K/mm3 (0.0-0.1) 06/02/21 07:07 Seg Neutrophils % 58.3 % (40.0-70.0) 06/02/21 07:07 Seg Neutrophils # 2.7 K/mm3 (1.8-7.7) 06/02/21 07:07 PT 13.5 Sec. (12.2-14.9) 05/30/21 05:30 INR 0.93 (0.87-1.13) 05/30/21 05:30 Sodium 142 mmol/L (137-145) 06/02/21 07:07 Potassium 2.9 mmol/L (3.6-5.0) L* 06/02/21 07:07 Chloride 101.6 mmol/L (98-107) 06/02/21 07:07 Carbon Dioxide 27 mmol/L (22-30) 06/02/21 07:07 Anion Gap 16 mmol/L 06/02/21 07:07 BUN 10 mg/dL (9-20) 06/02/21 07:07 Creatinine 0.7 mg/dL (0.8-1.3) L 06/02/21 07:07 Estimated GFR > 60 ml/min 06/02/21 07:07 BUN/Creatinine Ratio 14 % 06/02/21 07:07 Glucose 116 mg/dL (75-100) H 06/02/21 07:07 Calcium 8.4 mg/dL (8.4-10.2) 06/02/21 07:07 Phosphorus 4.40 mg/dL (2.5-4.5) 06/01/21 05:07 Magnesium 1.80 mg/dL (1.7-2.3) 06/01/21 05:07 Total Bilirubin 0.70 mg/dL (0.1-1.2) 05/31/21 04:42 Direct Bilirubin 0.2 mg/dL (0-0.2) 05/28/21 09:03 Indirect Bilirubin 0.4 mg/dL 05/28/21 09:03 AST 9 units/L (5-40) 05/31/21 04:42 ALT 6 units/L (7-56) L 05/31/21 04:42 Alkaline Phosphatase 44 units/L (35-129) 05/31/21 04:42 Total Protein 6.3 g/dL (6.3-8.2) 05/31/21 04:42 Albumin 3.4 g/dL (3.9-5) L 05/31/21 04:42 Albumin/Globulin Ratio 1.2 % 05/31/21 04:42 Lipase 73 units/L (13-60) H 05/28/21 09:03 Urine Color Jessie (Yellow) 05/28/21 11:04 Urine Turbidity Clear (Clear) 05/28/21 11:04 Urine pH 5.0 (5.0-7.0) 05/28/21 11:04 Ur Specific [place] 1.034 (1.003-1.030) H 05/28/21 11:04 Urine Protein 30 mg/dl mg/dL (Negative) 05/28/21 11:04 Urine Glucose (UA) Neg mg/dL (Negative) 05/28/21 11:04 Urine Ketones Tr mg/dL (Negative) 05/28/21 11:04 Urine Blood Neg (Negative) 05/28/21 11:04 Urine Nitrite Neg (Negative) 05/28/21 11:04 Urine Bilirubin Sm (Negative) 05/28/21 11:04 Urine Ictotest Negative (Negative) 05/28/21 11:04 Urine Urobilinogen 4.0 mg/dL (<2.0) 05/28/21 11:04 Ur Leukocyte Esterase Neg (Negative) 05/28/21 11:04 Urine WBC (Auto) 3.0 /HPF (0.0-6.0) 05/28/21 11:04 Urine RBC (Auto) 12.0 /HPF (0.0-6.0) 05/28/21 11:04 U Epithel Cells (Auto) < 1.0 /HPF (0-13.0) 05/28/21 11:04 Calcium Oxalate Crystal 1+ 05/28/21 11:04 Urine Mucus 2+ /HPF 05/28/21 11:04 Coronavirus (PCR) Negative (Negative) 05/29/21 Unknown Gu/IV: Voiding Method Toilet Active Medications - Current Medications Current Medications: Generic Name Dose Route Start Last Admin Trade Name Freq PRN Reason Stop Dose Admin Acetaminophen 650 mg 05/28/21 14:11 Acetaminophen 325 Mg Tab PO Q4H PRN Pain MILD(1-3)/Fever >100.5/SORIA Albuterol 2.5 mg 05/28/21 14:11 Albuterol 2.5 Mg/3 Ml Nebu IH Q4HRT PRN Shortness Of Breath Hydromorphone HCl 0.5 mg 05/29/21 09:00 05/30/21 05:45 Hydromorphone 1 Mg/1 Ml Inj IV 0.5 mg Q3H PRN Administration Pain , Severe (7-10) Piperacillin Sod/Tazobactam Sod 4.5 gm in 100 mls @ 200 mls/hr 05/29/21 11:00 06/02/21 11:00 Zosyn/Ns 4.5gm/100ml IV 200 mls/hr Q8H CHARY Administration Protocol Amino Acids/Electrolytes/Dextrose 2,400 mls @ 100 mls/hr 06/01/21 20:00 06/01/21 23:25 Tpn Adult IV 06/02/21 19:59 100 mls/hr DAILY@[email or web address] Administration Protocol Potassium Chloride 10 meq in 100 mls @ 100 mls/hr 06/02/21 11:00 Kcl 10meq/100ml IV 06/02/21 14:59 Q1H [facility] Amino Acids/Electrolytes/Dextrose 2,400 mls @ 100 mls/hr 06/02/21 20:00 Tpn Adult IV 06/03/21 19:59 DAILY@[facility] Protocol Ketorolac Tromethamine 15 mg 05/29/21 09:00 06/02/21 09:53 Ketorolac 30 Mg/1 Ml Inj IV 06/03/21 08:59 15 mg Q12H CHARY Administration Ondansetron HCl 4 mg 05/28/21 14:11 Ondansetron 4 Mg/2 Ml Inj IV Q8H PRN Nausea And Vomiting Oxycodone/Acetaminophen 1 tab 05/28/21 14:11 05/29/21 02:40 Oxycodone /Acetaminophen 5-325mg Tab PO 1 tab Q16H PRN Administration Pain, Moderate (4-6) Pantoprazole Sodium 40 mg 05/29/21 10:00 06/02/21 09:53 Pantoprazole 40 Mg Inj IV 40 mg QDAY CHARY Administration Simethicone 80 mg 05/29/21 02:44 05/29/21 02:57 Simethicone 80 Mg Chew Tab PO 80 mg Q6H PRN Administration Gas pain Sodium Chloride 10 ml 05/28/21 22:00 06/02/21 09:53 Sodium Chloride 0.9% 10 Ml Flush Syringe IV 10 ml BID CHARY Administration Sodium Chloride 10 ml 05/28/21 14:11 Sodium Chloride 0.9% 10 Ml Flush Syringe IV PRN PRN LINE FLUSH Nutrition/Malnutrition Assess - Dietary Evaluation Nutrition/Malnutrition Findings: Nutrition Notes Start: 05/31/21 11:10 Freq: Status: Active Protocol: Document 06/02/21 10:21 ALLI (Rec: 06/02/21 11:15 ALLI [id number]) Nutrition Notes Initial or Follow up Reassessment Other Pertinent Diagnosis Colonic obstruction, Colitis, Abdominal pain, Acute HTN. Current Diet PPN (since D 05/31). Labs/Tests 06/02: K 2.9, Crea 0.7, Glu 116. Pertinent Medications 06/02: Nutritionally unremarkable. Height 5 ft 9 in Weight 108.65 kg [place] Body Weight (kg) 72.72 BMI 35.4 Weight change and time frame No body weight change reported . Weight Status Obese Subjective/Other Information RD consut for routine F/U on PPN. Pt Bowel function is improving . Pt with NGT to low intermmitent suction. Phos and Mag lab result are not on the screen, I spoke to Lab, and they told me that results are Phos is 4.4, and Mag is 1.8; same as yesterday. Percent of energy/protein needs met: Prescribed PPN provides for energy/protein needs (1,020 Kcal/85 g) during LOS, 49% Kcal; 100% AA. Burn Absent Trauma Absent GI Symptoms Other Food Allergy No Skin Integrity/Comment Clear, warm, dry. Current % PO Other Minimum of two criteria No #1 Nutrition Diagnosis Altered GI function Comments: Pt Bowel function is improving . Pt with NGT to low intermmitent suction. Diagnosis Progress(for reassessment Continues documentation) Is patient on ventilator? No Is Patient Ambulatory and/or Out of Bed Yes REE-([facility]-ambulatory/OOB) [ 2563.444 [id number]] Kcal/Kg value to use for calculation 19 Approximate Energy Requirements Using 2063 kcal/Kg Calculation Used for Recommendations Kcal/kg Additional Notes Protein: 0.8-1 g/Kg; 73-91 g/ day. Fluids: 1 ml/Kcal, or as per MD. Nutrition Intervention Nutrition Support: PPN @ 100 ml/hr. Na 40 mEq, K 110 mEq, Ca 0 mEq , Phos 0 mEq, Mg 0 mEq, Cl/CO2 25%/75%. Kcal 1,020 Protein (gm) 85 Carbohydrates (gm) 200 Fat (gm) 0 Fluid (mL) 2,400 Fiber (gm) 0 % RDI: 49% Kcal; 100% AA. Goal #1 Provide at least 75% of energy /protein needs through Parenteral Feeding during LOS. Follow-Up By: 06/03/21 Additional Comments Continue monitoring PPN tolerance and BM. BMP, Mg, Phos labs ordered.
--- NOTE | 2021-06-02 19:09 | Gastroenterology Progress Note ---
Assessment and Plan - Patient Problems (1) Colonic obstruction Current Visit: Yes Status: Acute Plan to address problem: - Unclear based on CT whether inflammatory or malignant obstruction, but initial CT a few weeks ago looked more like diverticulitis; lack of fever and normal WBC more concerning for a mass or a post-inflammatory stricture. - Agree with Surgery re:bowel rest, abx, IV fluids; will discontinue NG suction since multiple BM and Xray 06/01 shows complete resolution of bowel distention. - Patient has passed multiple BMs in the last 72 hours, as well as air and physical exam consistent with resolved obstruction. - Will plan colonoscopy tomorrow to assess for stricture or mass requiring surgery now, or resolving diverticulitis (and elective resection in a few weeks). Subjective Date of service: 06/02/21 Principal diagnosis: Colon Obstruction, colon mass Interval history: The patient's N/V/abdominal pain has resolved, and he had 3 more BM today without eating. No blood in his NG tube. He does have a lot of fluid in the canister, but has been drinking water/eating copious ice. Objective - Constitutional Vitals: Temp Pulse Resp BP Pulse Ox 98.4 F 70 18 127/75 99 06/02/21 03:19 06/02/21 03:19 06/02/21 03:19 06/02/21 03:19 06/02/21 11:41 General appearance: no acute distress - EENT ENT: hearing intact, clear oral mucosa - Neck Neck: supple, normal ROM - Respiratory Respiratory effort: normal Respiratory: bilateral: CTA - Cardiovascular Rhythm: regular Heart Sounds: Present: S1 & S2 - Gastrointestinal General gastrointestinal: Present: soft, non-tender, non-distended, normal bowel sounds - Labs CBC & Chem 7: 06/02/21 07:07 06/02/21 07:07 Labs: Laboratory Results - last 24 hr 06/02/21 06/02/21 07:07 07:07 WBC 4.7 RBC 4.59 Hgb 11.8 Hct 38.6 MCV 84 MCH 26 L MCHC 31 L RDW 13.8 Plt Count 294 Lymph % (Auto) 30.4 [place] % (Auto) 9.1 H Eos % (Auto) 1.7 Baso % (Auto) 0.5 Lymph # (Auto) 1.4 [place] # (Auto) 0.4 Eos # (Auto) 0.1 Baso # (Auto) 0.0 Seg Neutrophils % 58.3 Seg Neutrophils # 2.7 Sodium 142 Potassium 2.9 L* Chloride 101.6 Carbon Dioxide 27 Anion Gap 16 BUN 10 Creatinine 0.7 L Estimated GFR > 60 BUN/Creatinine Ratio 14 Glucose 116 H Calcium 8.4
[2021-06-02] MEDS ORDERED: MAGNESIUM CITRATE 300 ML ORAL LIQD PO ONE (19:57)
[2021-06-02] MEDS ORDERED: TOTAL PARENTERAL NUTRITION 2,400 ML IV SCH (20:00)
[2021-06-03] MEDS: PIPERACIL/TAZOBACTA 4.5/NS 100 4.5 GM/100 ML VIAL IV SCH ×3 (03:14→21:47)
[2021-06-03] MEDS ORDERED: MAGNESIUM CITRATE 300 ML ORAL LIQD PO ONE (06:00)
[2021-06-03 06:20] LABS: Basophils % (Auto) 0.4 % (0.0-1.8); Eosinophils # (Auto) 0.1 K/mm3 (0.0-0.4); Eosinophils % (Auto) 1.4 % (0.0-4.3); Lymphocytes # (Auto) 1.6 K/mm3 (1.2-5.4); Lymphocytes % (Auto) 26.3 % (13.4-35.0); Mean Corpuscular HGB Conc 30 % (32-34); Mean Corpuscular Volume 84 fl (84-94); Monocytes # (Auto) 0.6 K/mm3 (0.0-0.8); Monocytes % (Auto) 9.5 % (0.0-7.3); Platelet Count 320 K/mm3 (140-440); Red Blood Count 4.74 M/mm3 (3.65-5.03)
[2021-06-03 06:26] LABS: Hematocrit 39.8 % (35.5-45.6)
[2021-06-03 06:30] LABS: BUN/Creatinine Ratio 11; Blood Urea Nitrogen 9 mg/dL (9-20); Calcium 8.5 mg/dL (8.4-10.2); Hemolysis Index 0
[2021-06-03] MEDS: PANTOPRAZOLE 40 MG INJ IV SCH (10:39)
--- NOTE | 2021-06-03 11:10 | Progress Note ---
Assessment and Plan Assessment and plan: 41 yo M with partial colonic obstruction 2/2 descending colon mass vs infection/inflammatory process Ct A/P reviewed from 05/28/21 and 05/09/21 - mural thickening of portion of descending colon with mild inflammatory stranding, no perforation. Distal colon with some air/stool but decompressed. Dilatation of proximal colon and diffuse small bowel distension. No free fluid or free air. Obs series 05/31/21- persistent dilatation of small bowel with air fluid level CT A/P 05/31/21 - improvement in colonic dilatation and stool burden. Small bowel with with diffuse mod distension without transition point consistent with ileus. Colon obstruction Hypertension Obesity Tobacco dependence 06/01/2021. Patient for colonoscopy tomorrow. Continue NPO. Patient currently with NGT to low intermittent suction. Patient with approximately 1000 cc. Continue IV antibiotics. Continue antiemetics and pain control. Continue supportive care with IV fluid hydration 06/02/2021. GI and surgery recommend bowel rest, antibiotics, IV fluids and NG suction. Patient has passed multiple BMs in the last 48 hours, as well as air, and CT yesterday shows improvement in the colon imaging, though the small bowel is still distended. Repeat KUB today, and possible colonoscopy on Sunday if improved, after bowel prep. 06/03/2021. GI reports patient for colonoscopy today. Continue bowel rest, antibiotics, IV fluids and NG suction. History Interval history: No new issues overnight. Hospitalist Physical - Constitutional Vitals: Temp Pulse Resp BP Pulse Ox 99.0 F 111 H 18 108/66 94 06/03/21 09:15 06/03/21 09:15 06/03/21 09:15 06/03/21 09:15 06/03/21 09:15 General appearance: Present: no acute distress, well-nourished - EENT Eyes: Present: PERRL, EOM intact ENT: hearing intact, clear oral mucosa, dentition normal - Neck Neck: Present: supple, normal ROM - Respiratory Respiratory effort: normal Respiratory: bilateral: CTA - Cardiovascular Rhythm: regular Heart Sounds: Present: S1 & S2. Absent: gallop, rub - Extremities Extremities: no ischemia, No edema, Full ROM - Abdominal General gastrointestinal: soft, non-tender, non-distended, normal bowel sounds - Integumentary Integumentary: Present: clear, warm, dry - Neurologic Neurologic: CNII-XII intact, moves all extremities Results - Labs CBC & Chem 7: 06/03/21 04:43 06/03/21 04:43 Labs: Laboratory Last Values WBC 6.0 K/mm3 (4.5-11.0) 06/03/21 04:43 RBC 4.74 M/mm3 (3.65-5.03) 06/03/21 04:43 Hgb 12.0 gm/dl (11.8-15.2) 06/03/21 04:43 Hct 39.8 % (35.5-45.6) 06/03/21 04:43 MCV 84 fl (84-94) 06/03/21 04:43 MCH 25 pg (28-32) L 06/03/21 04:43 MCHC 30 % (32-34) L 06/03/21 04:43 RDW 14.0 % (13.2-15.2) 06/03/21 04:43 Plt Count 320 K/mm3 (140-440) 06/03/21 04:43 Lymph % (Auto) 26.3 % (13.4-35.0) 06/03/21 04:43 [place] % (Auto) 9.5 % (0.0-7.3) H 06/03/21 04:43 Eos % (Auto) 1.4 % (0.0-4.3) 06/03/21 04:43 Baso % (Auto) 0.4 % (0.0-1.8) 06/03/21 04:43 Lymph # (Auto) 1.6 K/mm3 (1.2-5.4) 06/03/21 04:43 [place] # (Auto) 0.6 K/mm3 (0.0-0.8) 06/03/21 04:43 Eos # (Auto) 0.1 K/mm3 (0.0-0.4) 06/03/21 04:43 Baso # (Auto) 0.0 K/mm3 (0.0-0.1) 06/03/21 04:43 Seg Neutrophils % 62.4 % (40.0-70.0) 06/03/21 04:43 Seg Neutrophils # 3.8 K/mm3 (1.8-7.7) 06/03/21 04:43 PT 13.5 Sec. (12.2-14.9) 05/30/21 05:30 INR 0.93 (0.87-1.13) 05/30/21 05:30 Sodium 139 mmol/L (137-145) 06/03/21 04:43 Potassium 3.1 mmol/L (3.6-5.0) L 06/03/21 04:43 Chloride 97.2 mmol/L (98-107) L 06/03/21 04:43 Carbon Dioxide 29 mmol/L (22-30) 06/03/21 04:43 Anion Gap 16 mmol/L 06/03/21 04:43 BUN 9 mg/dL (9-20) 06/03/21 04:43 Creatinine 0.8 mg/dL (0.8-1.3) 06/03/21 04:43 Estimated GFR > 60 ml/min 06/03/21 04:43 BUN/Creatinine Ratio 11 % 06/03/21 04:43 Glucose 100 mg/dL (75-100) 06/03/21 04:43 Calcium 8.5 mg/dL (8.4-10.2) 06/03/21 04:43 Phosphorus 3.50 mg/dL (2.5-4.5) 06/03/21 04:43 Magnesium 1.90 mg/dL (1.7-2.3) 06/03/21 04:43 Total Bilirubin 0.70 mg/dL (0.1-1.2) 05/31/21 04:42 Direct Bilirubin 0.2 mg/dL (0-0.2) 05/28/21 09:03 Indirect Bilirubin 0.4 mg/dL 05/28/21 09:03 AST 9 units/L (5-40) 05/31/21 04:42 ALT 6 units/L (7-56) L 05/31/21 04:42 Alkaline Phosphatase 44 units/L (35-129) 05/31/21 04:42 Total Protein 6.3 g/dL (6.3-8.2) 05/31/21 04:42 Albumin 3.4 g/dL (3.9-5) L 05/31/21 04:42 Albumin/Globulin Ratio 1.2 % 05/31/21 04:42 Lipase 73 units/L (13-60) H 05/28/21 09:03 Urine Color Jessie (Yellow) 05/28/21 11:04 Urine Turbidity Clear (Clear) 05/28/21 11:04 Urine pH 5.0 (5.0-7.0) 05/28/21 11:04 Ur Specific [place] 1.034 (1.003-1.030) H 05/28/21 11:04 Urine Protein 30 mg/dl mg/dL (Negative) 05/28/21 11:04 Urine Glucose (UA) Neg mg/dL (Negative) 05/28/21 11:04 Urine Ketones Tr mg/dL (Negative) 05/28/21 11:04 Urine Blood Neg (Negative) 05/28/21 11:04 Urine Nitrite Neg (Negative) 05/28/21 11:04 Urine Bilirubin Sm (Negative) 05/28/21 11:04 Urine Ictotest Negative (Negative) 05/28/21 11:04 Urine Urobilinogen 4.0 mg/dL (<2.0) 05/28/21 11:04 Ur Leukocyte Esterase Neg (Negative) 05/28/21 11:04 Urine WBC (Auto) 3.0 /HPF (0.0-6.0) 05/28/21 11:04 Urine RBC (Auto) 12.0 /HPF (0.0-6.0) 05/28/21 11:04 U Epithel Cells (Auto) < 1.0 /HPF (0-13.0) 05/28/21 11:04 Calcium Oxalate Crystal 1+ 05/28/21 11:04 Urine Mucus 2+ /HPF 05/28/21 11:04 Coronavirus (PCR) Negative (Negative) 05/29/21 Unknown Ug/IV: Voiding Method Toilet Active Medications - Current Medications Current Medications: Generic Name Dose Route Start Last Admin Trade Name Freq PRN Reason Stop Dose Admin Acetaminophen 650 mg 05/28/21 14:11 Acetaminophen 325 Mg Tab PO Q4H PRN Pain MILD(1-3)/Fever >100.5/SORIA Albuterol 2.5 mg 05/28/21 14:11 Albuterol 2.5 Mg/3 Ml Nebu IH Q4HRT PRN Shortness Of Breath Hydromorphone HCl 0.5 mg 05/29/21 09:00 05/30/21 05:45 Hydromorphone 1 Mg/1 Ml Inj IV 0.5 mg Q3H PRN Administration Pain , Severe (7-10) Piperacillin Sod/Tazobactam Sod 4.5 gm in 100 mls @ 200 mls/hr 05/29/21 11:00 06/03/21 10:40 Zosyn/Ns 4.5gm/100ml IV 200 mls/hr Q8H CHARY Administration Protocol Amino Acids/Electrolytes/Dextrose 2,400 mls @ 100 mls/hr 06/02/21 20:00 06/02/21 21:28 Tpn Adult IV 06/03/21 19:59 100 mls/hr DAILY@2000 CHARY Administration Protocol Ondansetron HCl 4 mg 05/28/21 14:11 Ondansetron 4 Mg/2 Ml Inj IV Q8H PRN Nausea And Vomiting Oxycodone/Acetaminophen 1 tab 05/28/21 14:11 05/29/21 02:40 Oxycodone /Acetaminophen 5-325mg Tab PO 1 tab Q16H PRN Administration Pain, Moderate (4-6) Pantoprazole Sodium 40 mg 05/29/21 10:00 06/03/21 10:39 Pantoprazole 40 Mg Inj IV 40 mg QDAY CHARY Administration Simethicone 80 mg 05/29/21 02:44 05/29/21 02:57 Simethicone 80 Mg Chew Tab PO 80 mg Q6H PRN Administration Gas pain Sodium Chloride 10 ml 05/28/21 22:00 06/02/21 21:27 Sodium Chloride 0.9% 10 Ml Flush Syringe IV 10 ml BID CHARY Administration Sodium Chloride 10 ml 05/28/21 14:11 Sodium Chloride 0.9% 10 Ml Flush Syringe IV PRN PRN LINE FLUSH Nutrition/Malnutrition Assess - Dietary Evaluation Nutrition/Malnutrition Findings: Nutrition Notes Start: 05/31/21 11:10 Freq: Status: Active Protocol: Document 06/02/21 10:21 ALLI (Rec: 06/02/21 11:15 ALLI [id number]) Nutrition Notes Initial or Follow up Reassessment Other Pertinent Diagnosis Colonic obstruction, Colitis, Abdominal pain, Acute HTN. Current Diet PPN (since D 05/31). Labs/Tests 06/02: K 2.9, Crea 0.7, Glu 116. Pertinent Medications 06/02: Nutritionally unremarkable. Height 5 ft 9 in Weight 108.65 kg [place] Body Weight (kg) 72.72 BMI 35.4 Weight change and time frame No body weight change reported . Weight Status Obese Subjective/Other Information RD consut for routine F/U on PPN. Pt Bowel function is improving . Pt with NGT to low intermmitent suction. Phos and Mag lab result are not on the screen, I spoke to Lab, and they told me that results are Phos is 4.4, and Mag is 1.8; same as yesterday. Percent of energy/protein needs met: Prescribed PPN provides for energy/protein needs (1,020 Kcal/85 g) during LOS, 49% Kcal; 100% AA. Burn Absent Trauma Absent GI Symptoms Other Food Allergy No Skin Integrity/Comment Clear, warm, dry. Current % PO Other Minimum of two criteria No #1 Nutrition Diagnosis Altered GI function Comments: Pt Bowel function is improving . Pt with NGT to low intermmitent suction. Diagnosis Progress(for reassessment Continues documentation) Is patient on ventilator? No Is Patient Ambulatory and/or Out of Bed Yes REE-([facility]-ambulatory/OOB) [ 2563.444 NUTR.[id number]] Kcal/Kg value to use for calculation 19 Approximate Energy Requirements Using 2063 kcal/Kg Calculation Used for Recommendations Kcal/kg Additional Notes Protein: 0.8-1 g/Kg; 73-91 g/ day. Fluids: 1 ml/Kcal, or as per MD. Nutrition Intervention Nutrition Support: PPN @ 100 ml/hr. Na 40 mEq, K 110 mEq, Ca 0 mEq , Phos 0 mEq, Mg 0 mEq, Cl/CO2 25%/75%. Kcal 1,020 Protein (gm) 85 Carbohydrates (gm) 200 Fat (gm) 0 Fluid (mL) 2,400 Fiber (gm) 0 % RDI: 49% Kcal; 100% AA. Goal #1 Provide at least 75% of energy /protein needs through Parenteral Feeding during LOS. Follow-Up By: 06/03/21 Additional Comments Continue monitoring PPN tolerance and BM. BMP, Mg, Phos labs ordered.
[2021-06-03] MEDS ORDERED: SODIUM CHLORIDE 0.9% 1000 ML 1,000 ML ONE (12:19)
--- NOTE | 2021-06-03 12:38 | Anesthesia Consultation ---
Anesthesia Consult and Med Hx Date of service: 06/03/21 - Airway Anesthetic Teeth Evaluation: Good, Caps (giraldo caps #8 and #9) ROM Head & Neck: Adequate Mental/Hyoid Distance: Adequate Mallampati Class: Class II Intubation Access Assessment: Probably Good - Pre-Operative Health Status ASA Pre-Surgery Classification: ASA2 Proposed Anesthetic Plan: MAC - Pulmonary Hx Smoking: Yes (1/2 pack/day x 20 years) Hx Asthma: No COPD: No Hx Pneumonia: No - Central Nervous System Hx Psychiatric Problems: No - Gastrointestinal Hx Ulcer: No (colitis, abdominal pain) - Endocrine Hx End Stage Renal Disease: No - Other Systems Hx Obesity: Yes (BMI 35.4)
--- NOTE | 2021-06-03 12:39 | Anesthesia Day of Surgery ---
Anesthesia Day of Surgery - Day of Surgery Patient Examined: Yes Patient H&P Reviewed: Yes Patient is NPO: Yes
[2021-06-03] MEDS ORDERED: propofoL 200 MG/20 ML VIAL IV ONE ×2 (13:01→13:11)
--- NOTE | 2021-06-03 13:39 | Post Operative Note ---
Pre-op diagnosis: Abnl CT Colon Post-op diagnosis: other (Abnormal mucosa sigmoid, Pancolonic Tics, Grade I Int Hemorrhoids) Findings: 1. Endoscope passed easily to TI/cecum without obstruction 2. Pancolonic diverticulosis 3. Irregular circumferential mucosa in proximal sigmoid corresponding to lesion CT - Appearance was of benign inflammation (likely from diverticular disease) - Multiple cold biopsies taken - Area tattooed with 3ml Elizabeth Ink on Distal margin 4. Grade I Internal hemorrhoids Procedure: Colonoscopy with cold biopsy and elizabeth ink tattoo Anesthesia: MAC Surgeon: LETTY STEPHENS Estimated blood loss: minimal Pathology: list (1. Sigmoid colon abnormal mucosa) Specimen disposition: to lab Condition: stable Disposition: floor (Recs: 1. F/U Path; surgery if malignant. 2. Obstruction appears resolved, and I think lesion is benign inflammation. 3. Advance to full liquid diet and discharge home if tolerates. 4. 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 5. Repeat CT in 4 weeks.)
--- NOTE | 2021-06-03 13:58 | Operative Report ---
DATE OF SURGERY: 06/03/2021 ENDOSCOPY DOCUMENT PROCEDURE PERFORMED: Colonoscopy with cold biopsy and Elizabeth ink tattoo. PREOPERATIVE DIAGNOSIS: Abnormal CT scan. POSTOPERATIVE DIAGNOSES: Abnormal mucosa in the sigmoid, pancolonic diverticulosis, grade I internal hemorrhoids. ENDOSCOPIST: Norbert Edwards M.D. INSTRUMENT: The Olympus video endoscope. MEDICATIONS: MAC anesthesia by anesthesia services. COMPLICATIONS: No apparent complications. ESTIMATED BLOOD LOSS: Minimal. SPECIMENS: Sigmoid colon mucosa, rule out cancer. IMPLANTS: None. ASSISTANTS: None. CONDITION AT COMPLETION: Stable. TECHNIQUE: The patient was informed of the risks and benefits of the procedure. He signed the informed consent to proceed. He was placed in the left lateral decubitus position. The above sedative medications were given. His vital signs remained stable throughout the procedure. The instrument was advanced from the anus to the cecum under direct visualization. The cecum was identified by cannulation of the terminal ileum. At that point, the bowel was insufflated and the endoscope was slowly withdrawn. The quality of preparation was good. FINDINGS: 1. The endoscope passed easily to the terminal ileum and the cecum without obstruction. 2. The terminal ileum was normal. 3. Pancolonic diverticulosis. 4. Irregular circumferential mucosa in the proximal sigmoid corresponding to the lesion seen on the CT scan. A. The appearance was benign, inflammation likely from diverticular disease, although ischemia or malignancy could be possible B. Multiple cold biopsies taken. C. The area was tattooed with 3 mL of Elizabeth ink on the distal margin. 5. Grade I internal hemorrhoids. RECOMMENDATIONS: 1. Follow up on pathology; surgery of malignancy is noted. 2. The patient's colon obstruction appears resolved and I think the lesion is benign, inflammation. 3. Advance to full liquid diet and discharge the patient home if he tolerates it. 4. Five more days of Augmentin twice daily therapy for likely diverticulitis, stricture, which is resolving. 5. Repeat the CT scan in 4 weeks. TID: [id number] RECEIPT: [id number] THEE/ERAN
--- NOTE | 2021-06-03 14:04 | Discharge Summary ---
Providers - Providers Date of Admission: 05/30/21 08:00 Date of discharge: 06/03/21 Attending physician: MATI DREW 05/28/21 13:12 Consult to Physician [CONS] Stat Comment: Consulting Provider: LETTY STEPHENS Physician Instructions: Reason For Exam: Acute abdominal pain/Colitis vs mass 05/28/21 13:13 Consult to Physician [CONS] Stat Comment: Consulting Provider: KRISTY LIN Physician Instructions: Reason For Exam: Acute abdominal pain/SBO vs ileus 05/31/21 10:20 Consult to Dietitian/Nutrition [CONS] Routine Physician Instructions: Bowel obstruction; needs PPN Reason For Exam: Reason for Consult: Write/Manage TPN/PPN Primary care physician: MED ADMIN Hospitalization Reason for admission: abd pain Condition: Stable Hospital course: 41 yo M with no PMHx who presented to ER with c/o abdominal bloating and constipation for 1 1/2 day. This time he also had n/v - clear emesis (NB/NB). 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 He usually has BM twice a day. His BMs did not change in character and he denied hematochezia and melena. He is passing flatus regularly. He was afebrile. Patient states the first episode was 3 weeks ago at which time he also came to ER. He was diagnosed with descending colon diverticulitis and started on levaquin and flagyl. He states he felt better after starting antibiotics for a few days. He has never had a colonscopy and no family hx of colon ca. The patient was admitted with diagnosis of partial colonic obstruction secondary to descending colon mass versus infection/inflammatory process. The patient was seen by general surgery and GI in consultation. Patient had a CT of the abdomen pelvis from 05/28/21 and 05/09/21 - mural thickening of portion of descending colon with mild inflammatory stranding, no perforation. Distal colon with some air/stool but decompressed. Dilatation of proximal colon and diffuse small bowel distension. No free fluid or free air. Obs series 05/31/21- persistent dilatation of small bowel with air fluid level CT A/P 05/31/21 - improvement in colonic dilatation and stool burden. Small bowel with with diffuse mod distension without transition point consistent with ileus. Hospital course: 06/01/2021. Patient for colonoscopy tomorrow. Continue NPO. Patient currently with NGT to low intermittent suction. Patient with approximately 1000 cc. Continue IV antibiotics. Continue antiemetics and pain control. Continue supportive care with IV fluid hydration 06/02/2021. GI and surgery recommend bowel rest, antibiotics, IV fluids and NG suction. Patient has passed multiple BMs in the last 48 hours, as well as air, and CT yesterday shows improvement in the colon imaging, though the small bowel is still distended. Repeat KUB today, and possible colonoscopy on Sunday if improved, after bowel prep. 06/03/2021. The patient was continued bowel rest, antibiotics, IV fluids and NG suction throughout last night. Patient underwent colonoscopy today which revealed pancolonic diverticulosis with irregular circumferential mucosa in proximal sigmoid corresponding to lesion on the CT scan. GI believes that the appearance was benign inflammation likely secondary to diverticular disease. Biopsies were taken and will need to be followed up as an outpatient. Patient also noted to have grade 1 internal hemorrhoids. GI feels that the obstruction is resolved and all result of benign inflammation. The patient will be advanced to full liquid diet and discharge home if tolerates. Patient will be discharged with Augmentin 875 mg twice daily for 5 more days. Patient should follow-up with GI and surgery as an outpatient Dedicated discharge time 35 minutes. Disposition: 30 STILL A PATIENT Final Discharge Diagnosis (Prints w/discharge instructions): Diverticulitis,partial colonic obstruction secondary to diverticulitis stricture, pancolonic diverticulosis, internal hemorrhoid Core Measure Documentation - Palliative Care Palliative Care/ Comfort Measures: Not Applicable - Core Measures Any of the following diagnoses?: none Exam - Constitutional Vitals: Temp Pulse Resp BP Pulse Ox 98.3 F 108 H 25 H 105/69 94 06/03/21 11:40 06/03/21 11:40 06/03/21 11:40 06/03/21 11:40 06/03/21 11:40 General appearance: Present: no acute distress, well-nourished - EENT Eyes: Present: PERRL ENT: hearing intact, clear oral mucosa - Neck Neck: Present: supple, normal ROM - Respiratory Respiratory effort: normal Respiratory: bilateral: CTA - Cardiovascular Heart Sounds: Present: S1 & S2. Absent: rub, click - Extremities Extremities: pulses symmetrical, No edema Peripheral Pulses: within normal limits - Abdominal General gastrointestinal: Present: soft, non-tender, non-distended, normal bowel sounds Male genitourinary: Present: normal - Integumentary Integumentary: Present: clear, warm, dry - Musculoskeletal Musculoskeletal: gait normal, strength equal bilaterally - Psychiatric Psychiatric: appropriate mood/affect, intact judgment & insight - Neurologic Neurologic: CNII-XII intact, moves all extremities Plan Activity: advance as tolerated Weight Bearing Status: Weight Bear as Tolerated Diet: regular Follow up with: PRIMARY CARE, [Primary Care Provider] - 3-5 Days KRISTY LIN DO [Staff Physician] - 7 Days LETTY STEPHENS MD [Staff Physician] - 7 Days Prescriptions: Amoxicillin/K Clav Tab [Augmentin 875 mg] 1 tab PO Q12HR #10 tab
[2021-06-03] MEDS: SIMETHICONE 80 MG CHEW TAB PO PRN (14:58)
--- NOTE | 2021-06-03 15:24 | Post Anesthesia Evaluation ---
- Post Anesthesia Evaluation Patient Participated: Yes Airway Patent: Yes Stable Respiratory Function: Yes Nausea/Vomiting: No Temp > 96.8F: Yes Pain Manageable: Yes Adequeate Hydration: Yes Anesthesia Complications: No Block Receding Appropriately: Not Applicable Patient on Ventilator: No
[2021-06-03] MEDS: HYDROmorphone 1 MG/1 ML INJ IV PRN ×2 (18:34→21:54)
[2021-06-03] MEDS ORDERED: TOTAL PARENTERAL NUTRITION 2,400 ML IV SCH (20:00)
[2021-06-04] MEDS: PIPERACIL/TAZOBACTA 4.5/NS 100 4.5 GM/100 ML VIAL IV SCH (05:32)
[2021-06-04] MEDS: HYDROmorphone 1 MG/1 ML INJ IV PRN (05:32)
[2021-06-04 07:27] LABS: Blood Urea Nitrogen 13 mg/dL (9-20); Hemolysis Index 3
[2021-06-04 07:29] LABS: BUN/Creatinine Ratio 19
[2021-06-04 11:35] VITALS: BP 105/64
== END 2021-06-04 12:00 | disposition home or self-care (01) | DRG 392 ==
LOC: ED 06:00 → 3A 14:11 → 4A 05-29 20:50 → OBSVTOIN 05-30 08:00
PROVIDERS: ADMIT Internal Medicine; ATTEND Hospitalist
PROC: 0DBN8ZX Excision of Sigmoid Colon, Via Natural or Artificial Opening Endoscopic, Diagnostic (ICD-10-PCS; principal; 2021-06-03)
DX: K57.92 Diverticulitis of intestine, part unspecified, without perforation or abscess without bleeding (principal); K56.600 Partial intestinal obstruction, unspecified as to cause; E66.2 Morbid (severe) obesity with alveolar hypoventilation; F17.213 Nicotine dependence, cigarettes, with withdrawal; K52.9 Noninfective gastroenteritis and colitis, unspecified; Z20.822 Contact with and (suspected) exposure to COVID-19; Z68.35 Body mass index [BMI] 35.0-35.9, adult; Z83.3 Family history of diabetes mellitus; Z71.3 Dietary counseling and surveillance; K64.0 First degree hemorrhoids
CPT/HCPCS: 36415; 74018; 74022; 74176; 74177; 80048; 80053; 80076; 81001; 83690; 83735; 84100; 85025; 85027; 85610; 88305; G0378; J7120; Q0162; C9113; J1170; J1885; J2543; J2704; J2765; J3480; J7030; Q9967; U0003

== ENCOUNTER 2021-06-11 13:57 | Inpatient (IN) | payer SELFPAY ==
[2021-06-11] MEDS ORDERED: ONDANSETRON 4 MG/2 ML INJ IV ONE (14:54)
[2021-06-11] MEDS ORDERED: MORPHINE 4 MG/1 ML INJ IV ONE ×2 (14:54→20:23)
[2021-06-11] MEDS ORDERED: SODIUM CHLORIDE 0.9% 1000 ML 1,000 ML IV ONE ×2 (14:54→20:10)
[2021-06-11 15:21] LABS: Basophils % (Auto) 0.2 % (0.0-1.8); Eosinophils % (Auto) 0.3 % (0.0-4.3); Hematocrit 42.7 % (35.5-45.6); Hemoglobin 13.5 gm/dl (11.8-15.2); Lymphocytes # (Auto) 1.6 K/mm3 (1.2-5.4); Lymphocytes % (Auto) 23.2 % (13.4-35.0); Mean Corpuscular HGB Conc 32 % (32-34); Mean Corpuscular Volume 83 fl (84-94); Monocytes # (Auto) 0.8 K/mm3 (0.0-0.8); Monocytes % (Auto) 11.8 % (0.0-7.3); Platelet Count 421 K/mm3 (140-440); Red Blood Count 5.13 M/mm3 (3.65-5.03); Red Cell Distribution Width 13.9 % (13.2-15.2)
[2021-06-11 15:46] LABS: Alanine Aminotransferase 15 units/L (7-56); Albumin 4.3 g/dL (3.9-5); BUN/Creatinine Ratio 13; Blood Urea Nitrogen 10 mg/dL (9-20); Calcium 9.3 mg/dL (8.4-10.2); Hemolysis Index 2
--- NOTE | 2021-06-11 16:03 | Emergency Department Report ---
ED Abdominal Pain HPI - General Chief Complaint: Abdominal Pain Stated Complaint: AB PAIN BLOATING Time Seen by Provider: 06/11/21 14:20 Source: patient Mode of arrival: Ambulatory Limitations: No Limitations - History of Present Illness Initial Comments: Patient is a 41-year-old male presents emergency room complaints of generalized abdominal pain and abdominal bloating that reoccurred 2 days ago. Patient completed a course of antibiotics after an admission for diverticulitis and partial colonic obstruction with diverticulosis. Patient states he completed his course of Augmentin. He states that he began having the pain again. He denies any fever, nausea, vomiting, diarrhea, urinary symptoms, hematochezia, melena, hematemesis. He states he has been having normal bowel movements and passing gas. He has not followed up with anyone since discharge. No allergies to medications. Severity scale (0 -10): 6 - Related Data Previous Rx's Medication Instructions Recorded Last Taken Type Amoxicillin/K Clav Tab [Augmentin 1 tab PO Q12HR #10 tab 06/03/21 Unknown Rx 875 mg] Allergies Allergy/AdvReac Type Severity Reaction Status Date / Time No Known Allergies Allergy Verified 06/11/21 20:11 ED Review of Systems ROS: Stated complaint: AB PAIN BLOATING Other details as noted in HPI Comment: All other systems reviewed and negative ED Past Medical Hx - Past Medical History Previous Medical History?: Yes Hx Congestive Heart Failure: No Hx Diabetes: No Hx Kidney Stones: Yes Hx Asthma: No Hx COPD: No Additional medical history: Diverticulosis, hemorrhoids,. Partial colonic obstruction - Surgical History Past Surgical History?: Yes Additional Surgical History: Colonoscopy - Social History Smoking Status: Current Every Day Smoker Substance Use Type: Alcohol, Marijuana - Medications Home Medications: Home Medications Medication Instructions Recorded Confirmed Last Taken Type Amoxicillin/K Clav Tab [Augmentin 1 tab PO Q12HR #10 tab 06/03/21 06/11/21 Unknown Rx 875 mg] ED Physical Exam - General Limitations: No Limitations General appearance: alert, in no apparent distress - Head Head exam: Present: atraumatic, normocephalic - Eye Eye exam: Present: normal appearance - ENT ENT exam: Present: mucous membranes moist - Respiratory Respiratory exam: Present: normal lung sounds bilaterally. Absent: respiratory distress, wheezes, rales, rhonchi, stridor, chest wall tenderness, accessory muscle use, decreased breath sounds, prolonged expiratory - Cardiovascular Cardiovascular Exam: Present: regular rate, normal rhythm, normal heart sounds. Absent: systolic murmur, diastolic murmur, rubs, gallop - GI/Abdominal GI/Abdominal exam: Present: distended (moderately), tenderness (mild generalized), normal bowel sounds. Absent: guarding, rebound, rigid - Neurological Exam Neurological exam: Present: alert, oriented X3 - Psychiatric Psychiatric exam: Present: normal affect, normal mood - Skin Skin exam: Present: warm, dry, intact ED Course Vital Signs 06/11/21 06/11/21 14:07 20:09 Temperature 97.6 F 97.8 F Pulse Rate 106 H 82 Respiratory 20 20 Rate Blood Pressure 127/89 Blood Pressure 135/84 [Left] O2 Sat by Pulse 98 100 Oximetry - Consultations Consultation #1: 06/11/21 18:[address] Alfaro, GI regarding patient history, previous admission, today's results, she advised that due to dilated small bowel she thinks this is likely obstruction and advised to place NG tube and admit to hospitalist service 06/11/[address] Vidal, hospitalist who will accept and resume care of patient and will admit to hospitalist service, advised to order 125/cc a hour ED Medical Decision Making - Lab Data Result diagrams: 06/11/21 15:01 06/11/21 15:01 Lab Results 06/11/21 06/11/21 Range/Units 15:01 15:01 WBC 6.8 (4.5-11.0) K/mm3 RBC 5.13 H (3.65-5.03) M/mm3 Hgb 13.5 (11.8-15.2) gm/dl Hct 42.7 (35.5-45.6) % MCV 83 L (84-94) fl MCH 26 L (28-32) pg MCHC 32 (32-34) % RDW 13.9 (13.2-15.2) % Plt Count 421 (140-440) K/mm3 Lymph % (Auto) 23.2 (13.4-35.0) % [place] % (Auto) 11.8 H (0.0-7.3) % Eos % (Auto) 0.3 (0.0-4.3) % Baso % (Auto) 0.2 (0.0-1.8) % Lymph # (Auto) 1.6 (1.2-5.4) K/mm3 [place] # (Auto) 0.8 (0.0-0.8) K/mm3 Eos # (Auto) 0.0 (0.0-0.4) K/mm3 Baso # (Auto) 0.0 (0.0-0.1) K/mm3 Seg Neutrophils % 64.5 (40.0-70.0) % Seg Neutrophils # 4.4 (1.8-7.7) K/mm3 Sodium 133 L (137-145) mmol/L Potassium 4.6 (3.6-5.0) mmol/L Chloride 93.1 L (98-107) mmol/L Carbon Dioxide 27 (22-30) mmol/L Anion Gap 18 mmol/L BUN 10 (9-20) mg/dL Creatinine 0.8 (0.8-1.3) mg/dL Estimated GFR > 60 ml/min BUN/Creatinine Ratio 13 % Glucose 104 H (75-100) mg/dL Calcium 9.3 (8.4-10.2) mg/dL Total Bilirubin 0.40 (0.1-1.2) mg/dL AST 7 (5-40) units/L ALT 15 (7-56) units/L Alkaline Phosphatase 63 (35-129) units/L Total Protein 7.7 (6.3-8.2) g/dL Albumin 4.3 (3.9-5) g/dL Albumin/Globulin Ratio 1.3 % Lipase 13 (13-60) units/L Vital Signs 06/11/21 06/11/21 14:07 20:09 Temperature 97.6 F 97.8 F Pulse Rate 106 H 82 Respiratory 20 20 Rate Blood Pressure 127/89 Blood Pressure 135/84 [Left] O2 Sat by Pulse 98 100 Oximetry - Radiology Data Radiology results: report reviewed Ordering Physician: APRIL BOURGEOIS Date of Service: 06/11/21 Procedure(s): CT abdomen pelvis w con Accession Number(s): [id number] cc: APRIL BOURGEOIS CT ABDOMEN AND PELVIS WITH IV CONTRAST INDICATION: abd distension, abd pain, recent admission. History of colitis/diverticulitis. COMPARISON: CT 05/31/2021. TECHNIQUE: All CT scans at this facility use dose modulation, automated exposure control, iterative reconstruction or weight based dosing, when appropriate, to reduce radiation dose to as low as reasonably achievable. FINDINGS: Lung Bases: No significant abnormality. Skeletal System: No acute abnormality. ABDOMEN: Liver: No significant abnormality. Gallbladder: There is mild diffuse gallbladder wall edema. Bile Ducts: No significant abnormality. Adrenals: No significant abnormality. Right Kidney: No significant abnormality. Left Kidney: No significant abnormality. Pancreas: No significant abnormality. Spleen: No significant abnormality. Upper GI tract: No significant abnormality. Lymph Nodes: No significant adenopathy. Aorta: No significant abnormality. Additional Findings: Stomach, duodenum, and proximal jejunum are relatively decompressed. Mid to distal small bowel is diffusely dilated with fecal material. PELVIS: Colon: As on the prior, there is focal circumferential colonic wall thickening at the distal descending colon (as seen around axial image 135). Proximal to this, constipation is noted. Urinary Bladder and Distal Ureters: No significant abnormality. Appendix: No significant abnormality. Lymph Nodes: No significant adenopathy. Additional Findings: None. IMPRESSION: 1. Advanced concentric short segment colonic wall thickening at the junction of the distal descending and proximal sigmoid colon with associated luminal narrowing is similar to the prior. Proximal to this there is constipation. There appears to be fecal material within mid to distal small bowel which is dilated as well suggesting that there is at least some degree of obstruction at this area of concentric wall thickening in the distal descending colon. This could be inflammatory/infectious or neoplastic in etiology. 2. There is mild gallbladder wall edema. This is of uncertain etiology. Signer Name: Zuhair Tabor MD Signed: 06/11/2021 6:01 PM Workstation Name: [id number] Transcribed By: ANGELO Dictated By: Zuhair Tabor MD Electronically Authenticated By: Zuhair Tabor MD Signed Date/Time: 06/11/21 180 DD/ 54 TD/TT: - Medical Decision Making Patient is a 41-year-old male presents emergency room complaints of generalized abdominal pain and abdominal bloating that reoccurred 2 days ago. Patient completed a course of antibiotics after an admission for diverticulitis and partial colonic obstruction with diverticulosis. Patient states he completed his course of Augmentin. He states that he began having the pain again. He denies any fever, nausea, vomiting, diarrhea, urinary symptoms, hematochezia, melena, hematemesis. He states he has been having normal bowel movements and passing gas. He has not followed up with anyone since discharge. No allergies to medications. VSS. on exam: moderate distension and generalized abd ttp. labs with mild dehdration otherwise stable. CT abd pelvis with IV contrast: 1. Advanced concentric short segment colonic wall thickening at the junction of the distal descending and proximal sigmoid colon with associated luminal narrowing is similar to the prior. Proximal to this there is constipation. There appears to be fecal material within mid to distal small bowel which is dilated as well suggesting that there is at least some degree of obstruction atthis area of concentric wall thickening in the distal descending colon. This could be inflammatory/infectious or neoplastic in etiology. 2. There is mild gallbladder wall edema. This is of uncertain etiology. Discussed case with Dr. Alfaro, GI regarding patient history, previous admission, today's results, she advised that due to dilated small bowel she thinks this is likely obstruction and advised to place NG tube and admit to hospitalist service. discussed case with Dr. Vidal, hospitalist who will accept and resume care of patient and will admit to hospitalist service, advised to order 125/cc a hour. discussed all findings with pt who is agreeable with plan. Critical care attestation.: If time is entered above; I have spent that time in minutes in the direct care of this critically ill patient, excluding procedure time. ED Disposition Clinical Impression: Colon wall thickening, Abdominal distension Bowel obstruction Qualifiers: Intestinal obstruction type: unspecified Intestinal obstruction extent: unspecified extent Qualified Code(s): K56.609 - Unspecified intestinal obstruction, unspecified as to partial versus complete obstruction Abdominal pain Qualifiers: Abdominal location: generalized Qualified Code(s): R10.84 - Generalized abdominal pain Disposition: [facility] Is pt being admited?: Yes Does the pt Need Aspirin: No Condition: Stable Referrals: PRIMARY CARE, [Primary Care Provider] - 3-5 Days Forms: AMA Form Time of Disposition: 20:02 Print Language: URDU
--- NOTE | 2021-06-11 18:05 | Cat Scan Report ---
CT ABDOMEN AND PELVIS WITH IV CONTRAST INDICATION: abd distension, abd pain, recent admission. History of colitis/diverticulitis. COMPARISON: CT 05/31/2021. TECHNIQUE: All CT scans at this facility use dose modulation, automated exposure control, iterative reconstructi on or weight based dosing, when appropriate, to reduce radiation dose to as low as reasonably achieva ble. FINDINGS: Lung Bases: No significant abnormality. Skeletal System: No acute abnormality. ABDOMEN: Liver: No significant abnormality. Gallbladder: There is mild diffuse gallbladder wall edema. Bile Ducts: No significant abnormality. Adrenals: No significant abnormality. Right Kidney: No significant abnormality. Left Kidney: No significant abnormality. Pancreas: No significant abnormality. Spleen: No significant abnormality. Upper GI tract: No significant abnormality. Lymph Nodes: No significant adenopathy. Aorta: No significant abnormality. Additional Findings: Stomach, duodenum, and proximal jejunum are relatively decompressed. Mid to dist al small bowel is diffusely dilated with fecal material. PELVIS: Colon: As on the prior, there is focal circumferential colonic wall thickening at the distal descend ing colon (as seen around axial image 135). Proximal to this, constipation is noted. Urinary Bladder and Distal Ureters: No significant abnormality. Appendix: No significant abnormality. Lymph Nodes: No significant adenopathy. Additional Findings: None. IMPRESSION: 1. Advanced concentric short segment colonic wall thickening at the junction of the distal descendin g and proximal sigmoid colon with associated luminal narrowing is similar to the prior. Proximal to t his there is constipation. There appears to be fecal material within mid to distal small bowel which is dilated as well suggesting that there is at least some degree of obstruction at this area of joann ntric wall thickening in the distal descending colon. This could be inflammatory/infectious or neopla stic in etiology. 2. There is mild gallbladder wall edema. This is of uncertain etiology. Signer Name: Zuhair Tabor MD Signed: 06/11/2021 6:01 PM Workstation Name: [id number]
[2021-06-11] MEDS ORDERED: SODIUM CHLORIDE 0.9% 100 ML IVPB IV SCH (20:00)
[2021-06-11] MEDS ORDERED: ACETAMINOPHEN 325 MG TAB PO PRN (23:11)
[2021-06-11] MEDS ORDERED: METOCLOPRAMIDE 10 MG/2 ML INJ IV PRN (23:11)
[2021-06-11] MEDS ORDERED: SODIUM CHLORIDE 0.9% 1000 ML 1,000 ML IV SCH (23:15)
--- NOTE | 2021-06-11 23:16 | History and Physical Report ---
History of Present Illness Date of examination: 06/11/21 Date of admission: 06/11/2021 Chief complaint: Abdominal pain and nausea but no vomiting History of present illness: Patient is a 41-year-old male presents emergency room complaints of generalized abdominal pain and abdominal bloating that reoccurred 2 days ago. Patient completed a course of antibiotics after an admission for diverticulitis and partial colonic obstruction with diverticulosis. Patient states he completed his course of Augmentin. He states that he began having the pain again. He denies any fever, nausea, vomiting, diarrhea, urinary symptoms, hematochezia, melena, hematemesis. He states he has been having normal bowel movements and passing gas. He has not followed up with anyone since discharge. No allergies to medications. Severity scale (0 -10): 6 - Related Data Previous Rx's Medication Instructions Recorded Last Taken Type Amoxicillin/K Clav Tab [Augmentin 1 tab PO Q12HR #10 tab 06/03/21 Unknown Rx 875 mg] Allergies Allergy/AdvReac Type Severity Reaction Status Date / Time No Known Allergies Allergy Verified 06/11/21 20:11 - Past Medical History Previous Medical History?: Yes Hx Kidney Stones: Yes Additional medical history: Diverticulosis, hemorrhoids,. Partial colonic obstruction - Surgical History Past Surgical History?: Yes Additional Surgical History: Colonoscopy - Social History Smoking Status: Current Every Day Smoker Substance Use Type: Alcohol, Marijuana - Medications Home Medications: Home Medications Medication Instructions Recorded Confirmed Last Taken Type Amoxicillin/K Clav Tab [Augmentin 1 tab PO Q12HR #10 tab 06/03/21 06/11/21 Unknown Rx 875 mg] Review of Systems ROS: Stated complaint: AB PAIN BLOATING Other details as noted in HPI Comment: All other systems reviewed and negative Medications and Allergies Allergies Allergy/AdvReac Type Severity Reaction Status Date / Time No Known Allergies Allergy Verified 06/11/21 20:11 Home Medications Medication Instructions Recorded Confirmed Last Taken Type Amoxicillin/K Clav Tab [Augmentin 1 tab PO Q12HR #10 tab 06/03/21 06/11/21 Unknown Rx 875 mg] Active Meds: Active Medications Sodium Chloride (Nacl 0.9% 1000 Ml) 1,000 mls @ 125 mls/hr IV ONCE ONE Stop: 06/12/21 04:09 Last Admin: 06/11/21 20:22 Dose: 125 mls/hr Exam - Constitutional Vitals: Temp Pulse Resp BP Pulse Ox 97.8 F 82 20 135/84 96 06/11/21 20:09 06/11/21 20:09 06/11/21 20:09 06/11/21 20:09 06/11/21 23:02 General appearance: Present: no acute distress, well-nourished - EENT Eyes: Present: PERRL ENT: hearing intact, clear oral mucosa - Neck Neck: Present: supple, normal ROM - Respiratory Respiratory effort: normal Respiratory: bilateral: CTA - Cardiovascular Heart rate: 78 Rhythm: regular Heart Sounds: Present: S1 & S2. Absent: rub, click - Extremities Extremities: pulses symmetrical, No edema Peripheral Pulses: within normal limits - Abdominal General gastrointestinal: Present: tender, non-distended, distended, normal bowel sounds Male genitourinary: Present: normal - Integumentary Integumentary: Present: clear, warm, dry - Musculoskeletal Musculoskeletal: gait normal, strength equal bilaterally - Psychiatric Psychiatric: appropriate mood/affect, intact judgment & insight - Neurologic Neurologic: CNII-XII intact, moves all extremities - Allied Health Allied health notes reviewed: nursing, case management Results - Labs CBC & Chem 7: 06/12/21 05:55 06/12/21 05:55 Labs: Laboratory Last Values WBC 6.8 K/mm3 (4.5-11.0) 06/11/21 15:01 RBC 5.13 M/mm3 (3.65-5.03) H 06/11/21 15:01 Hgb 13.5 gm/dl (11.8-15.2) 06/11/21 15:01 Hct 42.7 % (35.5-45.6) 06/11/21 15:01 MCV 83 fl (84-94) L 06/11/21 15:01 MCH 26 pg (28-32) L 06/11/21 15:01 MCHC 32 % (32-34) 06/11/21 15:01 RDW 13.9 % (13.2-15.2) 06/11/21 15:01 Plt Count 421 K/mm3 (140-440) 06/11/21 15:01 Lymph % (Auto) 23.2 % (13.4-35.0) 06/11/21 15:01 [place] % (Auto) 11.8 % (0.0-7.3) H 06/11/21 15:01 Eos % (Auto) 0.3 % (0.0-4.3) 06/11/21 15:01 Baso % (Auto) 0.2 % (0.0-1.8) 06/11/21 15:01 Lymph # (Auto) 1.6 K/mm3 (1.2-5.4) 06/11/21 15:01 [place] # (Auto) 0.8 K/mm3 (0.0-0.8) 06/11/21 15:01 Eos # (Auto) 0.0 K/mm3 (0.0-0.4) 06/11/21 15:01 Baso # (Auto) 0.0 K/mm3 (0.0-0.1) 06/11/21 15:01 Seg Neutrophils % 64.5 % (40.0-70.0) 06/11/21 15:01 Seg Neutrophils # 4.4 K/mm3 (1.8-7.7) 06/11/21 15:01 Sodium 133 mmol/L (137-145) L 06/11/21 15:01 Potassium 4.6 mmol/L (3.6-5.0) 06/11/21 15:01 Chloride 93.1 mmol/L (98-107) L 06/11/21 15:01 Carbon Dioxide 27 mmol/L (22-30) 06/11/21 15:01 Anion Gap 18 mmol/L 06/11/21 15:01 BUN 10 mg/dL (9-20) 06/11/21 15:01 Creatinine 0.8 mg/dL (0.8-1.3) 06/11/21 15:01 Estimated GFR > 60 ml/min 06/11/21 15:01 BUN/Creatinine Ratio 13 % 06/11/21 15:01 Glucose 104 mg/dL (75-100) H 06/11/21 15:01 Calcium 9.3 mg/dL (8.4-10.2) 06/11/21 15:01 Total Bilirubin 0.40 mg/dL (0.1-1.2) 06/11/21 15:01 AST 7 units/L (5-40) 06/11/21 15:01 ALT 15 units/L (7-56) 06/11/21 15:01 Alkaline Phosphatase 63 units/L (35-129) 06/11/21 15:01 Total Protein 7.7 g/dL (6.3-8.2) 06/11/21 15:01 Albumin 4.3 g/dL (3.9-5) 06/11/21 15:01 Albumin/Globulin Ratio 1.3 % 06/11/21 15:01 Lipase 13 units/L (13-60) 06/11/21 15:01 - Imaging and Cardiology Imaging and Cardiology: CAT scan of the abdomen and pelvis Mid to distal small bowel is diffusely dilated with fecal material On the colon there is focal circumferential colonic wall thickening at the distal descending colon as seen in the image 135. Proximal to this constipation is noted. Final impression Advanced concentric short segment colonic wall thickening at the junction of the distal descending and proximal sigmoid colon with associated luminal narrowing similar to the prior. Proximal to this is there is constipation. There appears to be fecal material within mid to distal small bowel which is dilated as well suggesting that there is at least some degree of obstruction at this area of concentric wall thickening in the distal descending colon. This could be inflammatory/infectious or neoplastic in etiology. There is also mild gallbladder wall edema. This is of uncertain etiology. FINDINGS: * No gross lesions in the entire examined duodenum * 4 ulcers in the gastric antrum. First was 2 mm and superficial no high risk stigmata no bleeding. Second was 4 mm and superficial no high risk stigmata no bleeding. Third was 5 mm with active oozing. It was superficial. Gold probe was used to cauterize the area of bleeding and hemostasis was achieved at the end of the procedure. Last ulcer was 9 mm in diameter and somewhat cratered. No active bleeding no high risk stigmata. * Remainder of stomach with minimal gastritis with mild edema * Z-line regular at 36 cm to the incisors * Remainder of exam unremarkable RECOMMENDATIONS: * May start patient on full liquid diet and advance as tolerated tonight as long as hemoglobin remains stable and no more overt bleeding * Continue PPI drip and monitor patient for rebleed. As long as no more bleeding and patient hemoglobin remained stable she can be discharged Sunday evening * Patient will require follow-up EGD in 4 to 6 weeks to ensure resolution of the ulcers and ensure no underlying H. pylori * Avoid NSAIDs * * * Abdominal x-ray a nasogastric tube tip overlies the proximal stomach. Assessment and Plan Advance Directives: Yes (Full code) - Patient Problems (1) Colon obstruction Current Visit: Yes Status: Acute Plan to address problem: Patient to get GI work-up to rule out distal colon malignancy which may be the obstructing cause and causing severe constipation. Distal colonic mass may be causing the small bowel dilation and colonic dilation ~descending colon with circumferential thickening is present. GI consult for possible colonoscopy and biopsy (2) Hyponatremia Current Visit: Yes Status: Acute Plan to address problem: IV normal saline for now (3) DVT prophylaxis Current Visit: Yes Status: Acute Plan to address problem: On heparin and GI prophylaxis (4) Advance care planning Current Visit: Yes Status: Acute Plan to address problem: Disease education conducted, care plan discussed, diagnosis discussed, prognosis discussed. Patient is full code. Patient family member acknowledges patient acknowledges understanding and agreement. Care plan +30 minutes.
--- NOTE | 2021-06-11 23:33 | XRay Report ---
ABDOMEN 1 VIEW 06/11/2021 11:11 PM INDICATION / CLINICAL INFORMATION: NGT PLACEMENT. COMPARISON: 06/01/21. FINDINGS: TUBES / LINES: The tip of the nasogastric tube overlies the gastric fundus with the proximal sidehole well below the gastroesophageal junction. BOWEL GAS PATTERN: There is mild gaseous distention of multiple small bowel loops in the central left abdomen. There is gas in the right colon which does not appear collapsed. No mass effect. FREE AIR / EXTRALUMINAL GAS: None. ADDITIONAL FINDINGS: No significant additional findings. IMPRESSION: Nasogastric tube tip overlies the proximal stomach. Signer Name: Yehuda Brown MD Signed: 06/11/2021 11:29 PM Workstation Name: [id number]
[2021-06-12] MEDS: MORPHINE 2 MG/1 ML INJ IV PRN ×2 (02:29→23:03)
[2021-06-12] MEDS: ONDANSETRON 4 MG/2 ML INJ IV PRN ×2 (02:30→23:04)
[2021-06-12 06:35] LABS: Basophils % (Auto) 0.3 % (0.0-1.8); Eosinophils % (Auto) 0.6 % (0.0-4.3); Hemoglobin 11.3 gm/dl (11.8-15.2); Lymphocytes # (Auto) 1.6 K/mm3 (1.2-5.4); Lymphocytes % (Auto) 30.1 % (13.4-35.0); Mean Corpuscular HGB Conc 32 % (32-34); Mean Corpuscular Volume 83 fl (84-94); Monocytes # (Auto) 0.7 K/mm3 (0.0-0.8); Monocytes % (Auto) 12.7 % (0.0-7.3); Platelet Count 311 K/mm3 (140-440); Red Cell Distribution Width 13.5 % (13.2-15.2)
[2021-06-12 06:48] LABS: Alanine Aminotransferase 10 units/L (7-56); Albumin 3.4 g/dL (3.9-5); BUN/Creatinine Ratio 11; Blood Urea Nitrogen 9 mg/dL (9-20); Calcium 8.4 mg/dL (8.4-10.2); Hemolysis Index 2
[2021-06-12] MEDS: HEPARIN 5,000 UNIT/1 ML VIAL SUB-Q SCH ×2 (10:12→23:03)
--- NOTE | 2021-06-12 11:17 | Gastroenterology Consultation ---
History of Present Illness - Reason for Consult Consult date: 06/12/21 Abdominal pain, abnormal CAT scan Requesting physician: BOUCHRA GARCIA - History of Present Illness There is a pleasant 41-year-old gentleman who was recently discharged from here with similar episode, admitted for abdominal pain abnormal CAT scan He reports he has been doing well however he ate sausages did not chew his food well and reports how is having a lot of abdominal pain distention and cramping. Left lower quadrant. Severe. Gradually improving. No bowel movement since arriving at the hospital. He underwent colonoscopy recently which demonstrated sigmoid edema biopsies negative for malignancy. CT appearance this admission similar to prior Past History Past Medical History: other (Obesity) Past Surgical History: No surgical history Social history: single, smoking Family history: no significant family history 10 Systems reviewed and negative except as mentioned above in the history of present illness Medications and Allergies Allergies Allergy/AdvReac Type Severity Reaction Status Date / Time No Known Allergies Allergy Verified 06/11/21 20:11 Home Medications Medication Instructions Recorded Confirmed Last Taken Type Amoxicillin/K Clav Tab [Augmentin 1 tab PO Q12HR #10 tab 06/03/21 06/11/21 Unknown Rx 875 mg] Active Meds: Active Medications Acetaminophen (Acetaminophen 325 Mg Tab) 650 mg PO Q4H PRN PRN Reason: Pain MILD(1-3)/Fever >100.5/SORIA Heparin Sodium (Porcine) (Heparin 5,000 Unit/1 Ml Vial) 5,000 unit SUB-Q Q12HR CHARY Sodium Chloride (Nacl 0.9% 1000 Ml) 1,000 mls @ 75 mls/hr IV DIRECT CHARY Last Admin: 06/12/21 04:11 Dose: 75 mls/hr Metoclopramide HCl (Metoclopramide 10 Mg/2 Ml Inj) 10 mg IV Q6H PRN PRN Reason: Nausea And Vomiting Morphine Sulfate (Morphine 2 Mg/1 Ml Inj) 2 mg IV Q4H PRN PRN Reason: Pain, Moderate (4-6) Last Admin: 06/12/21 02:29 Dose: 2 mg Ondansetron HCl (Ondansetron 4 Mg/2 Ml Inj) 4 mg IV Q3H PRN PRN Reason: Nausea And Vomiting Last Admin: 06/12/21 02:30 Dose: 4 mg Sodium Chloride (Sodium Chloride 0.9% 10 Ml Flush Syringe) 10 ml IV BID CHARY Sodium Chloride (Sodium Chloride 0.9% 10 Ml Flush Syringe) 10 ml IV PRN PRN PRN Reason: LINE FLUSH Review of Systems - Review of Systems All systems: negative (10 Systems reviewed and negative except as mentioned above in the history of present illness) Exam - Constitutional Vital Signs: Temp Pulse Resp BP Pulse Ox 98.6 F 89 15 234/105 97 06/12/21 08:00 06/12/21 10:50 06/12/21 10:50 06/12/21 10:50 06/12/21 10:50 General appearance: no acute distress - EENT Eyes: EOM intact ENT: hearing intact - Neck Neck: supple - Respiratory Respiratory effort: normal - Cardiovascular Rhythm: regular - Gastrointestinal General gastrointestinal: Present: soft, non-tender - Integumentary Integumentary: Present: dry - Neurologic Neurological: alert and oriented x3 - Psychiatric Psychiatric: appropriate mood/affect - Labs CBC & Chem 7: 06/12/21 05:55 06/12/21 05:55 Lab Results: Laboratory Results - last 24 hr 06/11/21 06/11/21 06/12/21 15:01 15:01 05:55 WBC 6.8 5.3 RBC 5.13 H 4.20 Hgb 13.5 11.3 L Hct 42.7 35.0 L D MCV 83 L 83 L MCH 26 L 27 L MCHC 32 32 RDW 13.9 13.5 Plt Count 421 311 Lymph % (Auto) 23.2 30.1 [place] % (Auto) 11.8 H 12.7 H Eos % (Auto) 0.3 0.6 Baso % (Auto) 0.2 0.3 Lymph # (Auto) 1.6 1.6 [place] # (Auto) 0.8 0.7 Eos # (Auto) 0.0 0.0 Baso # (Auto) 0.0 0.0 Seg Neutrophils % 64.5 56.3 Seg Neutrophils # 4.4 3.0 Sodium 133 L Potassium 4.6 Chloride 93.1 L Carbon Dioxide 27 Anion Gap 18 BUN 10 Creatinine 0.8 Estimated GFR > 60 BUN/Creatinine Ratio 13 Glucose 104 H Calcium 9.3 Total Bilirubin 0.40 AST 7 ALT 15 Alkaline Phosphatase 63 Total Protein 7.7 Albumin 4.3 Albumin/Globulin Ratio 1.3 Lipase 13 06/12/21 05:55 WBC RBC Hgb Hct MCV MCH MCHC RDW Plt Count Lymph % (Auto) [place] % (Auto) Eos % (Auto) Baso % (Auto) Lymph # (Auto) [place] # (Auto) Eos # (Auto) Baso # (Auto) Seg Neutrophils % Seg Neutrophils # Sodium 137 Potassium 4.2 Chloride 100.6 Carbon Dioxide 24 Anion Gap 17 BUN 9 Creatinine 0.8 Estimated GFR > 60 BUN/Creatinine Ratio 11 Glucose 86 Calcium 8.4 Total Bilirubin 0.30 AST 7 ALT 10 Alkaline Phosphatase 56 Total Protein 6.2 L Albumin 3.4 L Albumin/Globulin Ratio 1.2 Lipase Assessment and Plan Suspect patient has partial colonic obstruction due to the persistent sigmoid edema. Based upon the colonoscopy results it appears to be peridiverticular hari ma and no evidence for malignancy. Therefore, recommend monitor clinically and symptoms should improve as he passes the stool through the area of edema. As his symptoms are improving I recommend pulling the NG tube and starting patient on a clear liquid diet with stool softeners (orders placed ) On discharge he should be on a limited diet and avoid meat until symptoms fully resolve If however he does not improve and distention and pain worsen then would recommend surgical consultation - Patient Problems (1) Abdominal distension Current Visit: Yes Status: Acute (2) Abdominal pain Current Visit: Yes Status: Acute Qualifiers: Abdominal location: generalized Qualified Code(s): R10.84 - Generalized abdominal pain (3) Colon obstruction Current Visit: Yes Status: Acute (4) Colon wall thickening Current Visit: Yes Status: Acute (5) Colitis Current Visit: No Status: Acute
[2021-06-12] MEDS: POLYETHYLENE GLYCOL 3350 17 GM POWDER PO SCH (20:14)
--- NOTE | 2021-06-12 20:17 | Progress Note ---
Assessment and Plan - Patient Problems (1) Colon obstruction Current Visit: Yes Status: Acute (2) Hyponatremia Current Visit: Yes Status: Acute (3) DVT prophylaxis Current Visit: Yes Status: Acute (4) Advance care planning Current Visit: Yes Status: Acute Subjective Date of service: 06/12/21 Objective - Constitutional Vitals: Vital Signs - 12hr 06/12/21 06/12/21 06/12/21 10:32 10:40 10:50 Temperature Pulse Rate 91 H 89 Respiratory 18 15 Rate Blood Pressure 125/87 234/105 234/105 O2 Sat by Pulse 97 97 97 Oximetry 06/12/21 06/12/21 06/12/21 11:00 11:10 11:35 Temperature 98.1 F Pulse Rate 94 H 91 H 88 Respiratory 16 16 18 Rate Blood Pressure 218/139 218/139 112/70 O2 Sat by Pulse 96 98 96 Oximetry 06/12/21 06/12/21 13:41 16:43 Temperature 98.4 F Pulse Rate 86 Respiratory 18 Rate Blood Pressure 115/66 O2 Sat by Pulse 98 97 Oximetry General appearance: Present: no acute distress, well-nourished - EENT Eyes: PERRL, EOM intact ENT: hearing intact, clear oral mucosa Ears: bilateral: normal - Neck Neck: supple, normal ROM - Respiratory Respiratory effort: normal Respiratory: bilateral: CTA - Breasts Breasts: normal - Cardiovascular Heart rate: 78 Rhythm: regular Heart Sounds: Present: S1 & S2. Absent: gallop, rub Extremities: pulses intact, No edema, normal color, Full ROM - Gastrointestinal General gastrointestinal: Present: soft, non-tender, non-distended, normal bowel sounds - Genitourinary Male genitourinary: normal - Integumentary Integumentary: clear, warm, dry - Musculoskeletal Musculoskeletal: 1, strength equal bilaterally - Neurologic Neurologic: moves all extremities - Psychiatric Psychiatric: memory intact, appropriate mood/affect, intact judgment & insight - Allied health notes Allied health notes reviewed: nursing, case management - Labs CBC & Chem 7: 06/12/21 05:55 06/12/21 05:55 Labs: Abnormal lab results 06/12/21 06/12/21 Range/Units 05:55 05:55 Hgb 11.3 L (11.8-15.2) gm/dl Hct 35.0 L D (35.5-45.6) % MCV 83 L (84-94) fl MCH 27 L (28-32) pg [place] % (Auto) 12.7 H (0.0-7.3) % Total Protein 6.2 L (6.3-8.2) g/dL Albumin 3.4 L (3.9-5) g/dL
[2021-06-13] MEDS: POLYETHYLENE GLYCOL 3350 17 GM POWDER PO SCH (10:01)
[2021-06-13] MEDS: HEPARIN 5,000 UNIT/1 ML VIAL SUB-Q SCH (10:02)
[2021-06-13] MEDS ORDERED: POLYETHYLENE GLYCOL/ELECT SOLN 4000 ML PO ONE (11:13)
--- NOTE | 2021-06-13 11:16 | Gastroenterology Progress Note ---
Assessment and Plan Suspect patient has partial colonic obstruction due to the persistent sigmoid edema. Based upon the colonoscopy results it appears to be peridiverticular edema and no evidence for malignancy. Clinically better today compared to yesterday but still with out a good bowel movement Therefore will give patient colon cleanse (he is not clinically obstructed so therefore safe to do) Once patient has multiple large bowel movements and his abdominal distention and pain have resolved he can be discharged on a limited diet and avoid meat until symptoms fully resolve If however he does not improve and distention and pain worsen then would recommend surgical consultation but I anticipate this will not be necessary - Patient Problems (1) Abdominal distension Current Visit: Yes Status: Acute (2) Abdominal pain Current Visit: Yes Status: Acute Qualifiers: Abdominal location: generalized Qualified Code(s): R10.84 - Generalized ab dominal pain (3) Colon obstruction Current Visit: Yes Status: Acute (4) Colon wall thickening Current Visit: Yes Status: Acute (5) Colitis Current Visit: No Status: Acute Subjective Date of service: 06/13/21 Principal diagnosis: Sigmoid obstruction Interval history: Patient reports passing flatus but has not had a bowel movement. NG tube was removed. Tolerating clear liquids but stomach still hurting diffuse distended Objective - Constitutional Vitals: Temp Pulse Resp BP Pulse Ox 98.4 F 75 18 122/74 93 06/13/21 08:13 06/13/21 08:13 06/13/21 08:13 06/13/21 08:13 06/13/21 08:13 General appearance: no acute distress - EENT Eyes: EOM intact - Respiratory Respiratory effort: normal - Cardiovascular Rhythm: regular - Gastrointestinal General gastrointestinal: Present: tender, distended, hypoactive bowel sounds - Integumentary Integumentary: Present: dry - Neurologic Neurological: alert and oriented x3 - Labs CBC & Chem 7: 06/12/21 05:55 06/12/21 05:55
[2021-06-13 15:50] VITALS: BP 137/89
[2021-06-13] MEDS ORDERED: LACTULOSE 20 GM/30 ML ORAL LIQD PO ONE (16:30)
== END 2021-06-13 19:47 | disposition home or self-care (01) | DRG 389 ==
LOC: ED 13:57 → 4A 23:11
PROVIDERS: ADMIT Internal Medicine; ATTEND Internal Medicine
DX: K56.609 Unspecified intestinal obstruction, unspecified as to partial versus complete obstruction (principal); E87.1 Hypo-osmolality and hyponatremia; R10.84 Generalized abdominal pain; K52.9 Noninfective gastroenteritis and colitis, unspecified; F17.210 Nicotine dependence, cigarettes, uncomplicated; R14.0 Abdominal distension (gaseous)
CPT/HCPCS: 36415; 74018; 74177; 80053; 83690; 85025; G0378; Q0162; J1644; J2270; J2405; J7030; Q9967

== ENCOUNTER 2021-06-13 22:33 | Inpatient (IN) | payer SELFPAY ==
[2021-06-13] MEDS ORDERED: SODIUM CHLORIDE 0.9% 1000 ML 1,000 ML IV ONE (23:52)
--- NOTE | 2021-06-14 00:20 | Emergency Department Report ---
ED Abdominal Pain HPI - General Chief Complaint: Abdominal Pain Stated Complaint: ABD PAIN Time Seen by Provider: 06/13/21 23:24 Source: patient Mode of arrival: Ambulatory Limitations: No Limitations - History of Present Illness Initial Comments: Pt d/c from the floor today. Pt presents back c/o of abd pain. Pt states shortly after gettign home his abd began to hurt and swell again. Complaint: abdominal pain -: Gradual, days(s) Location: diffuse Radiation: none Severity scale (0 -10): 2 Quality: fullness Consistency: constant - Related Data Home Medications Medication Instructions Recorded Confirmed Last Taken No Known Home Medications [No 06/13/21 06/13/21 Unknown Reported Home Medications] Allergies Allergy/AdvReac Type Severity Reaction Status Date / Time No Known Allergies Allergy Verified 06/13/21 22:52 ED Review of Systems ROS: Stated complaint: ABD PAIN Other details as noted in HPI Constitutional: denies: chills, fever Eyes: denies: eye pain, eye discharge, vision change ENT: denies: ear pain, throat pain Respiratory: denies: cough, shortness of breath, wheezing Cardiovascular: denies: chest pain, palpitations Endocrine: no symptoms reported Gastrointestinal: denies: abdominal pain, nausea, diarrhea Genitourinary: denies: urgency, dysuria Musculoskeletal: denies: back pain, joint swelling, arthralgia Skin: denies: rash, lesions Neurological: denies: headache, weakness, paresthesias Psychiatric: denies: anxiety, depression Hematological/Lymphatic: denies: easy bleeding, easy bruising ED Past Medical Hx - Past Medical History Hx Hypertension: Yes Hx Congestive Heart Failure: No Hx Diabetes: No Hx Kidney Stones: Yes Hx Asthma: No Hx COPD: No Hx HIV: No Additional medical history: Diverticulosis, hemorrhoids,. Partial colonic obstruction - Surgical History Additional Surgical History: Colonoscopy - Social History Smoking Status: Never Smoker - Medications Home Medications: Home Medications Medication Instructions Recorded Confirmed Last Taken Type No Known Home Medications [No 06/13/21 06/13/21 Unknown History Reported Home Medications] ED Physical Exam - General Limitations: No Limitations General appearance: alert, in no apparent distress - Head Head exam: Present: atraumatic, normocephalic - Eye Eye exam: Present: normal appearance - ENT ENT exam: Present: mucous membranes moist - Neck Neck exam: Present: normal inspection - Respiratory Respiratory exam: Present: normal lung sounds bilaterally. Absent: respiratory distress - Cardiovascular Cardiovascular Exam: Present: regular rate, normal rhythm. Absent: systolic murmur, diastolic murmur, rubs, gallop - GI/Abdominal GI/Abdominal exam: Present: distended, diminished bowel sounds, hypoactive bowel sounds - Rectal Rectal exam: Present: deferred - Extremities Exam Extremities exam: Present: normal inspection - Back Exam Back exam: Present: normal inspection - Neurological Exam Neurological exam: Present: alert, oriented X3 - Psychiatric Psychiatric exam: Present: normal affect, normal mood - Skin Skin exam: Present: warm, dry, intact, normal color. Absent: rash ED Course - Reevaluation(s) Reevaluation #1: 06/14/21 00:19 BOUNCE BACK EARLIER TODAY , SPOKE WITH DR Canela WILL SEE HIM IN AM Critical care attestation.: If time is entered above; I have spent that time in minutes in the direct care of this critically ill patient, excluding procedure time. ED Disposition Clinical Impression: Acute abdominal pain, Abdominal distension Disposition: ADMITTED INPATIENT Is pt being admited?: Yes Does the pt Need Aspirin: No Condition: Stable
[2021-06-14 00:30] LABS: Basophils % (Auto) 0.1 % (0.0-1.8); Eosinophils % (Auto) 0.1 % (0.0-4.3); Hematocrit 38.3 % (35.5-45.6); Hemoglobin 12.8 gm/dl (11.8-15.2); Lymphocytes # (Auto) 0.9 K/mm3 (1.2-5.4); Lymphocytes % (Auto) 14.3 % (13.4-35.0); Mean Corpuscular HGB Conc 33 % (32-34); Mean Corpuscular Volume 82 fl (84-94); Monocytes # (Auto) 0.4 K/mm3 (0.0-0.8); Monocytes % (Auto) 6.6 % (0.0-7.3); Platelet Count 354 K/mm3 (140-440); Red Blood Count 4.66 M/mm3 (3.65-5.03); Red Cell Distribution Width 13.6 % (13.2-15.2)
[2021-06-14] MEDS ORDERED: ACETAMINOPHEN 325 MG TAB PO PRN (00:49)
[2021-06-14] MEDS ORDERED: ONDANSETRON 4 MG/2 ML INJ IV PRN (00:49)
[2021-06-14] MEDS ORDERED: MAGNESIUM HYDROXIDE (MOM) ORAL LIQD UDC PO PRN (00:49)
[2021-06-14] MEDS ORDERED: MORPHINE 4 MG/1 ML INJ IV PRN (00:49)
--- NOTE | 2021-06-14 00:56 | History and Physical Report ---
History of Present Illness Date of examination: 06/14/21 Date of admission: 06/14/2021 Chief complaint: Abdominal Distension History of present illness: 41-year-old -N[place]alese male presents with back to the emergency room after being discharged less than 24 hours ago for abdominal distention. Patient was evaluated by the surgeon and also the board layer during his recent stay. He also had a colonoscopy. Findings during his recent stay reveals: Suspicion for partial colonic obstruction due to the persistent sigmoid edema. colonoscopy results appears to be peridiverticular edema and no evidence for malignancy. Recommendation was to monitor patient clinically. Upon return to the emergency room this evening patient indicates that he has had progressive swelling of his abdomen since being discharged. He has also had some nausea and vomiting. He denies any diarrhea. He also indicates that he has not been able to tolerate any oral intake. Patient denies any fever or chills, no chest pain or shortness of breath. Work-up in the emergency room today, patient had an abdominal x-ray which reveals:1. Marked gaseous distention of both large and small bowel, with lack of gas identified in the distal colon/rectum. The appearance is worrisome for mechanical bowel obstruction with point of transition occurring in the distal colonic region. General surgeon has been consulted for evaluation. Meanwhile patient has had NG tube placement. Past History Past Medical History: other ( Diverticulosis, hemorrhoids,. Partial colonic obstruction,Kidney stones) Past Surgical History: Other (Colonoscopy) Social history: smoking (Current daily smoker), alcohol abuse, other (Marijuana use) Family history: no significant family history Medications and Allergies Allergies Allergy/AdvReac Type Severity Reaction Status Date / Time No Known Allergies Allergy Verified 06/13/21 22:52 Home Medications Medication Instructions Recorded Confirmed Last Taken Type No Known Home Medications [No 06/13/21 06/13/21 Unknown History Reported Home Medications] Active Meds: Active Medications Sodium Chloride (Nacl 0.9% 1000 Ml) 1,000 mls @ 999 mls/hr IV BOLUS ONE Stop: 06/14/21 00:52 Last Admin: 06/14/21 00:41 Dose: 999 mls/hr Review of Systems Constitutional: no fever, no chills Ears, nose, mouth and throat: no nasal congestion, no sore throat Cardiovascular: no chest pain, no palpitations Respiratory: no cough, no shortness of breath Gastrointestinal: abdominal pain, nausea, vomiting Genitourinary Male: no dysuria, no hematuria, no flank pain Musculoskeletal: no neck pain, no low back pain Integumentary: no rash, no pruritis Neurological: no headaches, no confusion Psychiatric: no anxiety, no depression Endocrine: no polyphagia, no polydipsia, no polyuria, no nocturia Exam - Constitutional General appearance: Present: no acute distress, well-nourished - EENT Eyes: Present: PERRL, EOM intact. Absent: scleral icterus ENT: hearing intact, clear oral mucosa, dentition normal - Neck Neck: Present: supple, normal ROM - Respiratory Respiratory effort: normal Respiratory: bilateral: CTA - Cardiovascular Rhythm: regular Heart Sounds: Present: S1 & S2. Absent: gallop, systolic murmur, diastolic murmur, rub, click - Extremities Extremities: no ischemia, pulses intact, pulses symmetrical, No edema, normal temperature, normal color, Full ROM Peripheral Pulses: within normal limits - Abdominal General gastrointestinal: Present: tender, distended, mass, other (Tympanitic ) - Integumentary Integumentary: Present: clear, warm, dry, normal turgor. Absent: rash - Musculoskeletal Musculoskeletal: strength equal bilaterally - Psychiatric Psychiatric: appropriate mood/affect, intact judgment & insight, memory intact, cooperative - Neurologic Neurologic: CNII-XII intact, no focal deficits, moves all extremities Results - Labs CBC & Chem 7: 06/14/21 00:13 Labs: Abnormal lab results 06/14/21 Range/Units 00:13 MCV 82 L (84-94) fl MCH 27 L (28-32) pg Lymph # (Auto) 0.9 L (1.2-5.4) K/mm3 Seg Neutrophils % 78.9 H (40.0-70.0) % Assessment and Plan - Patient Problems (1) Abdominal distension Status: Acute Plan to address problem: Possibly secondary to small bowel obstruction. Patient has had NG tube placement and also made NPO. General surgery has been consulted for further evaluation and recommendations. (2) Acute abdominal pain Status: Acute Plan to address problem: Secondary to the small bowel obstruction. Patient will be placed on IV analgesic medication as needed for pain. (3) Nausea and vomiting Status: Acute Plan to address problem: We will place patient on IV antiemetic. (4) DVT prophylaxis Status: Acute Plan to address problem: Patient placed on sequential compression device. (5) Full code status Status: Acute Plan to address problem: Patient is full code.
[2021-06-14] MEDS: MORPHINE 2 MG/1 ML INJ IV PRN ×2 (01:02→05:06)
--- NOTE | 2021-06-14 01:07 | XRay Report ---
ABDOMEN, 5 VIEWS INDICATION / CLINICAL INFORMATION: Abdominal pain. History of colonoscopy 2 weeks ago. COMPARISON: 06/11/2021 radiographs FINDINGS: Bowel gas pattern is abnormal. There are multiple dilated loops of small bowel throughout the abdomen with accompanying air-fluid levels on the erect view. The colon also appears to be gas-filled and di lated. No gas is seen in the region of the sigmoid or rectum, however. The degree of dilatation appea rs more prominent when compared with CT from 06/11/2021. No free air is noted. The appearance is most suggestive for mechanical bowel obstruction, with level of obstruction in the region of the distal colon. IMPRESSION: 1. Marked gaseous distention of both large and small bowel, with lack of gas identified in the distal colon/rectum. The appearance is worrisome for mechanical bowel obstruction with point of transition occurring in the distal colonic region. Signer Name: Corazon Mullins MD Signed: 06/14/2021 1:02 AM Workstation Name: [id number]
[2021-06-14 01:55] LABS: BUN/Creatinine Ratio 11; Blood Urea Nitrogen 10 mg/dL (9-20); Calcium 9.6 mg/dL (8.4-10.2); Hemolysis Index 13
[2021-06-14 02:49] LABS: INR 1.02 (0.87-1.13)
--- NOTE | 2021-06-14 05:01 | XRay Report ---
ABDOMEN, SINGLE VIEW INDICATION / CLINICAL INFORMATION: NG tube. COMPARISON: 06/14/2021 at 0028 hours FINDINGS: Interval placement of NG tube since earlier exam. The NG tube is well positioned with the tip in the midportion of the stomach. Graft the visualized loops of bowel in the upper abdomen appear less dilat ed than on recent prior exam. IMPRESSION: Successful positioning of NG tube. Signer Name: Corazon Mullins MD Signed: 06/14/2021 4:56 AM Workstation Name: [id number]
[2021-06-14] MEDS: SODIUM CHLORIDE 0.9% 1000 ML 1,000 ML IV SCH ×2 (05:05→17:40)
--- NOTE | 2021-06-14 15:41 | Consultation ---
History of Present Illness - History of present illness History of present illness: 41 yo M with no PMHx who presented to ER with c/o abdominal bloating for 1 day. Patient was last seen about 2 weeks ago when he was admitted to [facility] for the same symptoms. He was found to have inflammatory changes in his sigmoid colon causing a partial bowel obstruction. He was managed with an NG tube and bowel rest and was able to be prepped for a colonoscopy. The colonoscopy was performed and showed inflammatory edema in the sigmoid colon which was easily passed by the colonoscope. Pathology was negative for m alignancy or dysplasia. The patient felt better and was discharged home tolerating a diet. He returned to the hospital several days ago with recurrent abdominal bloating and constipation. He was managed conservatively and seen by GI at that time. His symptoms improved and he was discharged yesterday. Once he went home, he started to feel abdominal discomfort and bloating again. He states that before he left hospital he drank golytely and another laxative. When he went home he did not have a BM and started to have abdominal cramping and bloating. His symptoms were only resolved when he returned to hospital and was given pain medication and IVF. Today he states he feels much better. He had several large BMs since admission last night and is passing flatus. No abdominal pain. States his abdomen is back to normal. No f/c. No n/v Past History Past Medical History: other ( Diverticulosis, hemorrhoids,. Partial colonic obstruction,Kidney stones) Past Surgical History: Other (Colonoscopy) Social history: smoking (Current daily smoker), alcohol abuse, other (Marijuana use) Family history: no significant family history Medications and Allergies Allergies Allergy/AdvReac Type Severity Reaction Status Date / Time No Known Allergies Allergy Verified 06/14/21 12:40 Home Medications Medication Instructions Recorded Confirmed Last Taken Type No Known Home Medications [No 06/13/21 06/14/21 Unknown History Reported Home Medications] Active Meds: Active Medications Acetaminophen (Acetaminophen 325 Mg Tab) 650 mg PO Q4H PRN PRN Reason: Pain MILD(1-3)/Fever >100.5/SORIA Sodium Chloride (Nacl 0.9% 1000 Ml) 1,000 mls @ 75 mls/hr IV DIRECT CHARY Last Admin: 06/14/21 05:05 Dose: 75 mls/hr Magnesium Hydroxide (Magnesium Hydroxide (Mom) Oral Liqd Udc) 30 ml PO Q4H PRN PRN Reason: Constipation Morphine Sulfate (Morphine 2 Mg/1 Ml Inj) 2 mg IV Q4H PRN PRN Reason: Pain, Moderate (4-6) Last Admin: 06/14/21 05:06 Dose: 2 mg Morphine Sulfate (Morphine 4 Mg/1 Ml Inj) 4 mg IV Q4H PRN PRN Reason: Pain , Severe (7-10) Ondansetron HCl (Ondansetron 4 Mg/2 Ml Inj) 4 mg IV Q8H PRN PRN Reason: Nausea And Vomiting Sodium Chloride (Sodium Chloride 0.9% 10 Ml Flush Syringe) 10 ml IV BID CHARY Last Admin: 06/14/21 09:22 Dose: Not Given Sodium Chloride (Sodium Chloride 0.9% 10 Ml Flush Syringe) 10 ml IV PRN PRN PRN Reason: LINE FLUSH Review of Systems All systems: negative (10 point ROS performed and negative except for that listed in HPI) Exam Vital Signs Temp Pulse Resp BP Pulse Ox 97.8 F 105 H 19 136/104 99 06/13/21 22:52 06/13/21 22:52 06/13/21 22:52 06/13/21 22:52 06/13/21 22:52 Narrative exam: Gen: AAox3. NAD ENT: NGT with light gastric output CV: S1, S2+ Resp: even and unlabored Abd: soft, NT, mildly distended. No r/r/g Ext: no c/c/e NGT output - 450cc/24hr Results - Labs 06/14/21 00:13 06/14/21 00:13 Abnormal lab results 06/14/21 06/14/21 Range/Units 00:13 00:13 MCV 82 L (84-94) fl MCH 27 L (28-32) pg Lymph # (Auto) 0.9 L (1.2-5.4) K/mm3 Seg Neutrophils % 78.9 H (40.0-70.0) % Carbon Dioxide 21 L (22-30) mmol/L Glucose 118 H (75-100) mg/dL Lipase 12 L (13-60) units/L Diabetes panel 06/14/21 Range/Units 00:13 Sodium 140 (137-145) mmol/L Potassium 4.9 (3.6-5.0) mmol/L Chloride 98.4 (98-107) mmol/L Carbon Dioxide 21 L (22-30) mmol/L BUN 10 (9-20) mg/dL Creatinine 0.9 (0.8-1.3) mg/dL Glucose 118 H (75-100) mg/dL Calcium 9.6 (8.4-10.2) mg/dL Calcium panel 06/14/21 Range/Units 00:13 Calcium 9.6 (8.4-10.2) mg/dL Pituitary panel 06/14/21 Range/Units 00:13 Sodium 140 (137-145) mmol/L Potassium 4.9 (3.6-5.0) mmol/L Chloride 98.4 (98-107) mmol/L Carbon Dioxide 21 L (22-30) mmol/L BUN 10 (9-20) mg/dL Creatinine 0.9 (0.8-1.3) mg/dL Glucose 118 H (75-100) mg/dL Calcium 9.6 (8.4-10.2) mg/dL Adrenal panel 06/14/21 Range/Units 00:13 Sodium 140 (137-145) mmol/L Potassium 4.9 (3.6-5.0) mmol/L Chloride 98.4 (98-107) mmol/L Carbon Dioxide 21 L (22-30) mmol/L BUN 10 (9-20) mg/dL Creatinine 0.9 (0.8-1.3) mg/dL Glucose 118 H (75-100) mg/dL Calcium 9.6 (8.4-10.2) mg/dL - Imaging Abdominal x-ray: report reviewed, image reviewed CT scan - abdomen: report reviewed, image reviewed (06/11/21) Assessment and Plan 41 yo M with partial colonic obstruction due to the persistent sigmoid edema from diverticular disease Patient has rapidly improved. Plan: 1. dc NGT 2. IVF 3. prn pain control 4. CLD 5. bowel regimen 6. abx 7. Discussed pathology of colonic edema from diverticular disease with patient causing partial obstruction. Explained recommendation for segmental colon resection if he does not continue to improve without NGT. He understands and is agreeable to plan. Will monitor. Thank you, please call with questions.
--- NOTE | 2021-06-14 16:03 | Event Note ---
Date: 06/14/21 9 patient seen and reevaluated Patient had multiple bowel movements today Patient says his abdominal distention has come down We will DC the NG tube and start him on clear liquids Observe him for another 24 hours and discharge probably tomorrow Will discharge if surgery clears him
[2021-06-14] MEDS: metroNIDAZOLE/NS 500 MG/100 ML 500 MG/100 ML BAG IV SCH (17:38)
[2021-06-15] MEDS: metroNIDAZOLE/NS 500 MG/100 ML 500 MG/100 ML BAG IV SCH ×2 (01:34→09:11)
[2021-06-15] MEDS: SODIUM CHLORIDE 0.9% 1000 ML 1,000 ML IV SCH ×2 (01:35→09:10)
[2021-06-15 06:45] VITALS: BP 139/89
[2021-06-15 07:55] LABS: Basophils % (Auto) 0.3 % (0.0-1.8); Eosinophils % (Auto) 0.6 % (0.0-4.3); Hematocrit 36.3 % (35.5-45.6); Hemoglobin 11.5 gm/dl (11.8-15.2); Lymphocytes # (Auto) 1.3 K/mm3 (1.2-5.4); Lymphocytes % (Auto) 27.6 % (13.4-35.0); Mean Corpuscular HGB Conc 32 % (32-34); Mean Corpuscular Volume 83 fl (84-94); Monocytes # (Auto) 0.6 K/mm3 (0.0-0.8); Monocytes % (Auto) 12.1 % (0.0-7.3); Platelet Count 293 K/mm3 (140-440); Red Blood Count 4.35 M/mm3 (3.65-5.03); Red Cell Distribution Width 13.7 % (13.2-15.2)
[2021-06-15 08:09] LABS: BUN/Creatinine Ratio 11; Blood Urea Nitrogen 9 mg/dL (9-20); Calcium 8.9 mg/dL (8.4-10.2); Hemolysis Index 1
--- NOTE | 2021-06-15 09:49 | Discharge Summary ---
Providers - Providers Date of Admission: 06/14/21 14:15 Date of discharge: 06/15/21 Attending physician: MATI DREW 06/14/21 00:21 Consult to Physician [CONS] Stat Comment: Consulting Provider: KRISTY LIN Physician Instructions: Reason For Exam: PARTIAL sbo Primary care physician: GENERAL OFFICE CLERK Hospitalization Reason for admission: Partial colonic obstruction Condition: Stable Hospital course: 41 yo M admitted with diagnosis of partial colonic obstruction due to the persistent sigmoid edema from diverticular disease. The patient was seen by general surgery in consultation. Patient had rapid improvement shortly after admission. Patient initially received NGT which was later discontinued. Patient also received supportive care with pain control and IV fluid hydration. Surgery discussed pathology of colonic edema from diverticular disease with patient causing partial obstruction. Explained recommendation for segmental colon resection if he does not continue to improve without NGT. However, given his improvement and advancement of diet which he tolerated, patient was felt to have received maximal hospital benefit for discharge. Dedicated discharge time 35 minutes. Disposition: 30 STILL A PATIENT Final Discharge Diagnosis (Prints w/discharge instructions): partial colonic obstruction due to the persistent sigmoid edema from diverticular disease. Core Measure Documentation - Palliative Care Palliative Care/ Comfort Measures: Not Applicable - Core Measures Any of the following diagnoses?: none Exam - Constitutional Vitals: Temp Pulse Resp BP Pulse Ox 99.2 F 92 H 20 139/89 100 06/15/21 05:33 06/15/21 05:33 06/15/21 05:33 06/15/21 05:33 06/15/21 07:00 General appearance: Present: no acute distress, well-nourished - EENT Eyes: Present: PERRL ENT: hearing intact, clear oral mucosa - Neck Neck: Present: supple, normal ROM - Respiratory Respiratory effort: normal Respiratory: bilateral: CTA - Cardiovascular Heart Sounds: Present: S1 & S2. Absent: rub, click - Extremities Extremities: pulses symmetrical, No edema Peripheral Pulses: within normal limits - Abdominal General gastrointestinal: Present: soft, non-tender, non-distended, normal bowel sounds Male genitourinary: Present: normal - Integumentary Integumentary: Present: clear, warm, dry - Musculoskeletal Musculoskeletal: gait normal, strength equal bilaterally - Psychiatric Psychiatric: appropriate mood/affect, intact judgment & insight - Neurologic Neurologic: CNII-XII intact, moves all extremities Plan Activity: advance as tolerated Weight Bearing Status: Weight Bear as Tolerated Diet: regular Follow up with: PRIMARY CARE, [Primary Care Provider] - 7 Days KRISTY LIN DO [Staff Physician] - 7 Days Forms: Work/School Release Form
== END 2021-06-15 10:56 | disposition home or self-care (01) | DRG 390 ==
LOC: ED 22:33 → 3A 06-14 00:49 → OBSVTOIN 06-14 14:15
PROVIDERS: ADMIT Internal Medicine Geriatric Medicine; ATTEND Hospitalist
PROC: 0D9670Z Drainage of Stomach with Drainage Device, Via Natural or Artificial Opening (ICD-10-PCS; principal; 2021-06-14)
DX: K56.600 Partial intestinal obstruction, unspecified as to cause (principal); R14.0 Abdominal distension (gaseous); I10 Essential (primary) hypertension; K57.90 Diverticulosis of intestine, part unspecified, without perforation or abscess without bleeding
CPT/HCPCS: 36415; 74018; 74019; 80048; 83690; 85025; 85610; 99406; G0378; J7517; Q0162; J1956; J2270; J7030